=== PATIENT | female | born 1980 | race African-American/Black ===

== ENCOUNTER 2016-06-16 13:06 | Emergency (ER) | payer MEDICAID ==
[~2016-06-16] VITALS: Ht 180.3 cm; Wt 84.4 kg
[2016-06-16] MEDS ORDERED: IV NORMAL SALINE 1000ML BAG 1,000 ML IV SCH (14:04)
[2016-06-16] MEDS ORDERED: MORPHINE SULFATE 4 MG/ML DISP.SYRIN. IV/SQ PRN (14:15)
[2016-06-16] MEDS ORDERED: ONDANSETRON PF 4 MG/2 ML VIAL. IV ONE (14:15)
--- NOTE | 2016-06-16 14:15 | PHYS DOC ---
Past Medical History Past Medical History: Anxiety, Bipolar, Depression, Diabetes-Type II Past Surgical History: Other Additional Past Surgical Histo: right thigh Smoking: Less than 1pk/day Alcohol Use: None Drug Use: None Adult General Chief Complaint Chief Complaint: NAUSEA/VOMITING/DIARRHA HPI HPI Patient is a 36 year old female who presents with nausea, vomiting, and diarrhea for 2 weeks. She reports epigastric abdominal pain. She has had subjective fever and urinary frequency. She denies dysuria. Her step-mother was recently sick with similar symptoms, but the patient is unsure what her step- mother had. The patient is unsure how many episodes of vomiting or diarrhea she has had in the last 24 hours. She denies blood in the stools. She takes Depakote for bipolar disorder. She controls her diabetes with her diet. She has not yet been seen for this illness. She does not have a PCP; Review of Systems Review of Systems Constitutional: Reports subjective fever. Eyes: Denies change in visual acuity, redness, or eye pain. [] HENT: Denies ear pain, nasal congestion or sore throat. [] Respiratory: Denies cough or shortness of breath. [] Cardiovascular: Denies chest pain, palpitations or edema. [] GI: Denies bloody stools. Reports nausea, vomiting, diarrhea, and abdominal pain. : Denies dysuria, hematuria. Reports urinary frequency. Musculoskeletal: Denies back pain or joint pain. [] Integument: Denies rash or skin lesions. [] Neurologic: Denies headache, focal weakness or sensory changes. [] Endocrine: Denies polyuria or polydipsia. [] Psych: Denies anxiety or depression. [] All systems reviewed and negative unless otherwise stated in the HPI. Current Medications Current Medications Current Medications Medications (Trade) Dose Ordered Sig/Rupinder Start Time Stop Time Status Last Admin Dose Admin Morphine Sulfate 4 mg PRN Q15MIN PRN 06/16/16 14:15 06/17/16 14:14 06/16/16 14:25 4 MG Ondansetron HCl (Zofran) 4 mg 1X ONCE 06/16/16 14:15 06/16/16 14:16 DC 06/16/16 14:24 4 MG Sodium Chloride (Iv Sodium Chloride 0.9% 1000ml Bag) 1,000 ml @ 1,000 mls/hr Q1H 06/16/16 14:04 06/16/16 15:03 DC 06/16/16 14:25 1,000 MLS/HR Allergies Allergies Allergies Coded Allergies Type Severity Reaction Last Updated Verified No Known Drug Allergies 06/09/13 No Physical Exam Physical Exam Constitutional: Well developed, well nourished, no acute distress, non-toxic appearance. [] HENT: Normocephalic, atraumatic, oropharynx moist. [] Eyes: PERRLA, EOMI, conjunctiva normal, no discharge. [] Neck: Normal range of motion, no tenderness, supple, no stridor. [] Cardiovascular: Heart rate regular rhythm, no murmur. [] Lungs & Thorax: Bilateral breath sounds clear to auscultation without wheezes, rales, or rhonchi. [] Abdomen: Bowel sounds normal, soft, epigastric and left lower quadrant tenderness, no masses, no pulsatile masses. [] Skin: Warm, dry, no erythema, no rash. [] Back: No midline tenderness, no CVA tenderness. [] Extremities: No tenderness, ROM intact, no edema. Distal pulses equal bilaterally. [] Neurologic: Alert and oriented X 3, normal motor function, normal sensory function, no focal deficits noted. [] Psychologic: Affect normal, judgement normal, mood normal. [] Current Patient Data Vital Signs Vital Signs Date Time Temp Pulse Resp B/P Pulse Ox O2 Delivery O2 Flow Rate FiO2 06/16/16 13:39 98.7 87 16 108/73 99 Room Air 98.7 Lab Values Laboratory Tests Test 06/16/16 14:15 White Blood Count 9.6x10^3/uL (4.0-11.0) Red Blood Count 4.75x10^6/uL (3.50-5.40) Hemoglobin 14.2g/dL (12.0-15.5) Hematocrit 42.4% (36.0-47.0) Mean Corpuscular Volume 89fL (79-100) Mean Corpuscular Hemoglobin 30pg (25-35) Mean Corpuscular Hemoglobin Concent 34g/dL (31-37) Red Cell Distribution Width 13.6% (11.5-14.5) Platelet Count 267x10^3/uL (140-400) Neutrophils (%) (Auto) 73% (31-73) Lymphocytes (%) (Auto) 21% (24-48) L Monocytes (%) (Auto) 5% (0-9) Eosinophils (%) (Auto) 0% (0-3) Basophils (%) (Auto) 1% (0-3) Neutrophils # (Auto) 7.1x10^3uL (1.8-7.7) Lymphocytes # (Auto) 2.0x10^3/uL (1.0-4.8) Monocytes # (Auto) 0.5x10^3/uL (0.0-1.1) Eosinophils # (Auto) 0.0x10^3/uL (0.0-0.7) Basophils # (Auto) 0.1x10^3/uL (0.0-0.2) Urine Collection Type Unknown Urine Color Straw Urine Clarity Cloudy Urine pH 6.0 Urine Specific [place] 1.025 Urine Protein Negativemg/dL (NEG-TRACE) Urine Glucose (UA) Negativemg/dL (NEG) Urine Ketones (Stick) 15mg/dL (NEG) Urine Blood Negative (NEG) Urine Nitrite Negative (NEG) Urine Bilirubin Small (NEG) Urine Urobilinogen Dipstick 1.0mg/dL (0.2 mg/dL) Urine Leukocyte Esterase Moderate (NEG) Urine RBC 0/HPF (0-2) Urine WBC 5-10/HPF (0-4) Urine Squamous Epithelial Cells Many/LPF Urine Bacteria Few/HPF (0-FEW) Urine Mucus Mod/LPF Urine Test Negative (NEG) Sodium Level 141mmol/L (136-145) Potassium Level 3.7mmol/L (3.5-5.1) Chloride Level 104mmol/L (98-107) Carbon Dioxide Level 24mmol/L (21-32) Anion Gap 13 (6-14) Blood Urea Nitrogen 9mg/dL (7-20) Creatinine 1.0mg/dL (0.6-1.0) Estimated GFR (Cockcroft-Gault) 76.3 BUN/Creatinine Ratio 9 (6-20) Glucose Level 112mg/dL (70-99) H Calcium Level 9.8mg/dL (8.5-10.1) Total Bilirubin 0.6mg/dL (0.2-1.0) Aspartate Amino Transferase (AST) 25U/L (15-37) Alanine Aminotransferase (ALT) 82U/L (14-59) H Alkaline Phosphatase 162U/L (46-116) H Total Protein 8.4g/dL (6.4-8.2) H Albumin 4.0g/dL (3.4-5.0) Albumin/Globulin Ratio 0.9 (1.0-1.7) L Lipase 130U/L (73-393) Laboratory Tests 06/16/16 14:15 Laboratory Tests 06/16/16 14:15 EKG EKG [] Radiology/Procedures Radiology/Procedures [] Course & Med Decision Making Course & Med Decision Making Pertinent Labs and Imaging studies reviewed. (See chart for details) Reevaluation at 1325: The patient reports that her pain is completely resolved. She is not having any more nausea or dry heaving. She is feeling much better and is ready to go home. I discussed her lab results, including mildly elevated liver enzyme levels. I recommended that she follow up with primary care provider for repeat LFT testing in one week. We discussed the importance of increased fluid intake. She is instructed to follow the BRAT diet for the next 24-48 hours. Return precautions were discussed. She verbalizes understanding and agrees with plan to be discharged home with prescriptions for pain and nausea medications. ED course: Patient is a 36-year-old female presents with 2 weeks of nausea and vomiting, diarrhea, and abdominal pain. On exam, her abdomen is soft and nonsurgical with epigastric and left lower quadrant tenderness. Vital signs are stable. Symptoms improved with IV morphine, Zofran, and fluids. Liver enzymes are mildly elevated without other significant laboratory abnormalities. Urine does appear to show infection. She is discharged home with prescription for pain , nausea, and antibiotic. She is instructed to follow-up for repeat LFT testing in one week. Return precautions were discussed. She verbalized understanding and agrees with plan. Dragon Disclaimer Dragon Disclaimer This electronic medical record was generated, in whole or in part, using a voice recognition dictation system. Departure Departure Impression: Primary Impression: Abdominal pain Additional Impressions: Vomiting and diarrhea UTI (urinary tract infection) Disposition: HOME, SELF-CARE Condition: IMPROVED Referrals: NO PCP (PCP) Patient Instructions: Abdominal Pain, [id number], Diarrhea, [id number], Nausea and Vomiting, [id number], Urinary Tract Infection, [id number] Additional Instructions: You were seen for vomiting, diarrhea, and abdominal pain. Your liver function tests were mildly elevated today. Please follow up with your primary care provider in 1 week for repeat testing of your liver enzymes. Your urine shows an infection. Please complete all of the prescribed antibiotics. Please take the prescribed medications as directed. Do not drive or operate heavy machinery while taking pain medication. Please drink lots liquids. Follow the BRAT diet (bananas, rice, applesauce, toast) for the next 24-48 hours. Return to the emergency department if you have severe pain, fever, continued vomiting, or other new or concerning symptoms. Scripts Ciprofloxacin Hcl (Cipro)500 Mg Tablet1 Tab PO BID #6 TAB Prov:DENNIS HERNANDEZ 06/16/16 Hydrocodone/Apap 5-325 ([place] 5-325 Tablet)1 Each Tablet1 Tab PO PRN Q6HRS PRN PAIN #10 TAB Prov:DENNIS HERNANDEZ 06/16/16 Ondansetron (Zofran Odt)4 Mg Tab.rapdis1 Tab SL Q8HRS #10 TAB Prov:DENNIS HERNANDEZ 06/16/16 Problem Qualifiers Primary Impression: Abdominal pain Abdominal location: epigastric Qualified Code: R10.13 - Epigastric pain Additional Impressions: UTI (urinary tract infection) Urinary tract infection type: acute cystitis Hematuria presence: without hematuria Qualified Code: N30.00 - Acute cystitis without hematuria DENNIS HERNANDEZ Jun 16, 2016 14:15
[2016-06-16 14:33] LABS: BASO # 0.1 x10^3/uL (0.0-0.2); BASO % 1 % (0-3); EOS % 0 % (0-3); HEMATOCRIT 42.4 % (36.0-47.0); HEMOGLOBIN 14.2 g/dL (12.0-15.5); LYMPH % 21 % (24-48); MEAN CORPUSCULAR HEMOGLOBIN 30 pg (25-35); MEAN CORPUSCULAR HGB CONC 34 g/dL (31-37); MEAN CORPUSCULAR VOLUME 89 fL (79-100); MONO % 5 % (0-9); NEUT % 73 % (31-73); PLATELET COUNT 267 x10^3/uL (140-400); RED BLOOD COUNT 4.75 x10^6/uL (3.50-5.40); RED CELL DISTRIBUTION WIDTH 13.6 % (11.5-14.5); WHITE BLOOD COUNT 9.6 x10^3/uL (4.0-11.0)
[2016-06-16 14:37] LABS: NEG OBC UR NEG; POS OBC UR POS
[2016-06-16 14:46] LABS: CALCIUM 9.8 mg/dL (8.5-10.1); GFR 76.3; POTASSIUM 3.7 mmol/L (3.5-5.1)
[2016-06-16 14:52] LABS: ALBUMIN/GLOBULIN RATIO 0.9 (1.0-1.7); TOTAL BILIRUBIN 0.6 mg/dL (0.2-1.0); TOTAL PROTEIN 8.4 g/dL (6.4-8.2)
[2016-06-16 14:55] LABS: BILIRUBIN,URINE SMALL (NEG); GLUCOSE,URINE NEGATIVE (NEG); NITRITE,URINE NEGATIVE (NEG); PROTEIN,URINE NEGATIVE (NEG-TRACE)
[2016-06-16 14:56] LABS: RBC,URINE 0 /HPF (0-2)
[2016-06-16 14:57] LABS: BACTERIA,URINE FEW /HPF (0-FEW); SQUAMOUS EPITHELIAL CELL,UR MANY /LPF
[2016-06-16] MEDS ORDERED: ONDA4TAB10 SL (15:40)
[2016-06-16] MEDS ORDERED: HYDR-971 PO (15:40)
[2016-06-16] MEDS ORDERED: CIPR500T94 PO (15:40)
[2016-06-16 16:02] VITALS: BP 106/70
== END 2016-06-16 16:14 | disposition home or self-care (01) ==
LOC: ER 13:06
DX: N30.00 Acute cystitis without hematuria (principal); R10.13 Epigastric pain; R11.2 Nausea with vomiting, unspecified; R19.7 Diarrhea, unspecified; F17.200 Nicotine dependence, unspecified, uncomplicated; E11.9 Type 2 diabetes mellitus without complications; F31.9 Bipolar disorder, unspecified; F41.9 Anxiety disorder, unspecified
CPT/HCPCS: 36415; 80053; 81001; 81025; 83690; 85027; 87086; 96361; 96374; 96375; 99284; J2270; J2405; J7030

== ENCOUNTER 2016-09-08 09:49 | Emergency (ER) | payer MEDICAID ==
[~2016-09-08] VITALS: Ht 180.3 cm; Wt 85.3 kg
[~2016-09-08 09:49] MED LIST: CIPR500T94 PO; HYDR-971 PO; ONDA4TAB10 SL
[2016-09-08] MEDS ORDERED: AZITHROMYCIN 250 MG TABLET. PO ONE (10:45)
[2016-09-08] MEDS ORDERED: IV NORMAL SALINE 1000ML BAG 1,000 ML IV ONE (10:45)
[2016-09-08] MEDS ORDERED: cefTRIAXone IM 250 MG VIAL IM ONE (10:45)
[2016-09-08] MEDS ORDERED: ONDANSETRON PF 4 MG/2 ML VIAL. IV ONE (10:45)
[2016-09-08] MEDS ORDERED: PENICILLIN G BENZATHINE LA 2,400,000 UNIT/4 ML DISP.SYRIN. IM ONE (11:00)
[2016-09-08 11:44] LABS: BILIRUBIN,URINE NEGATIVE (NEG); GLUCOSE,URINE NEGATIVE (NEG); NITRITE,URINE NEGATIVE (NEG); PROTEIN,URINE NEGATIVE (NEG-TRACE); UROBILINOGEN,URINE 0.2 mg/dL (0.2 mg/dL)
[2016-09-08 11:45] LABS: BACTERIA,URINE FEW /HPF (0-FEW); RBC,URINE OCC /HPF (0-2); SQUAMOUS EPITHELIAL CELL,UR MOD /LPF
[2016-09-08 11:50] LABS: CALCIUM 9.2 mg/dL (8.5-10.1); CREATININE 0.9 mg/dL (0.6-1.0); GFR 86.2; POTASSIUM 3.6 mmol/L (3.5-5.1)
[2016-09-08 11:51] LABS: BASO # 0.1 x10^3/uL (0.0-0.2); BASO % 1 % (0-3); EOS % 0 % (0-3); HEMATOCRIT 41.5 % (36.0-47.0); HEMOGLOBIN 13.7 g/dL (12.0-15.5); LYMPH # 2.7 x10^3/uL (1.0-4.8); LYMPH % 36 % (24-48); MEAN CORPUSCULAR HEMOGLOBIN 30 pg (25-35); MEAN CORPUSCULAR HGB CONC 33 g/dL (31-37); MEAN CORPUSCULAR VOLUME 90 fL (79-100); MONO % 6 % (0-9); NEUT % 57 % (31-73); PLATELET COUNT 276 x10^3/uL (140-400); RED BLOOD COUNT 4.63 x10^6/uL (3.50-5.40); RED CELL DISTRIBUTION WIDTH 13.7 % (11.5-14.5); WHITE BLOOD COUNT 7.5 x10^3/uL (4.0-11.0)
[2016-09-08 11:55] LABS: ALBUMIN 3.8 g/dL (3.4-5.0); TOTAL BILIRUBIN 0.4 mg/dL (0.2-1.0); TOTAL PROTEIN 7.5 g/dL (6.4-8.2)
[2016-09-08] MEDS ORDERED: ONDA4TAB7 PO (12:33)
[2016-09-08] MEDS ORDERED: METR500T PO (12:33)
--- NOTE | 2016-09-08 12:34 | PHYS DOC ---
Past Medical History Past Medical History: Anxiety, Bipolar, Depression, Diabetes-Type II Past Surgical History: Other Additional Past Surgical Histo: right thigh Additional Information: 06/01 ppd Alcohol Use: Sober Additional Information: sober 2 years Drug Use: None Adult General Chief Complaint Chief Complaint: NAUSEA/VOMITING/DIARRHA HPI HPI This is a 36-year-old female who presents with significant history for nausea and vomiting and diarrhea for the last several days as well as increasing vaginal discharge. Patient states she has been on course of Flagyl in the past for her discharge. She is also concerned about possible exposure to syphilis that she has been sexually active with a partner that she states had syphilis. She denies any vaginal lesions. She denies any vaginal pain. She denies any fever or chills. She is speaking in complete sentences and in no acute distress. She denies any hematuria or dysuria. Review of Systems Review of Systems Constitutional: Denies fever or chills [] Eyes: Denies change in visual acuity, redness, or eye pain [] HENT: Denies nasal congestion or sore throat [] Respiratory: Denies cough or shortness of breath [] Cardiovascular: No additional information not addressed in HPI [] GI: Denies abdominal pain, has nausea, has vomiting, denies bloody stools, has diarrhea [] : Denies dysuria or hematuria [] Musculoskeletal: Denies back pain or joint pain [] Integument: Denies rash or skin lesions [] Neurologic: Denies headache, focal weakness or sensory changes [] Endocrine: Denies polyuria or polydipsia [] Current Medications Current Medications Current Medications Medications (Trade) Dose Ordered Sig/Rupinder Start Time Stop Time Status Last Admin Dose Admin Azithromycin (Zithromax) 1,000 mg 1X ONCE 09/08/16 10:45 09/08/16 10:46 DC 09/08/16 11:27 1,000 MG Ceftriaxone Sodium (Rocephin Im) 250 mg 1X ONCE 09/08/16 10:45 09/08/16 10:46 DC 09/08/16 11:27 250 MG Ondansetron HCl (Zofran) 4 mg 1X ONCE 09/08/16 10:45 09/08/16 10:46 DC 09/08/16 11:28 4 MG Penicillin G Benzathine (Bicillin L-A) 2,400,000 unit 1X ONCE 09/08/16 11:00 09/08/16 11:01 DC 09/08/16 11:28 2,400,000 UNIT Sodium Chloride (Iv Sodium Chloride 0.9% 1000ml Bag) 1,000 ml @ 1,000 mls/hr 1X ONCE 09/08/16 10:45 09/08/16 11:44 DC 09/08/16 11:27 1,000 MLS/HR Allergies Allergies Allergies Coded Allergies Type Severity Reaction Last Updated Verified No Known Drug Allergies 06/09/13 No Physical Exam Physical Exam Constitutional: Well developed, well nourished, no acute distress, non-toxic appearance. [] HENT: Normocephalic, atraumatic, bilateral external ears normal, oropharynx moist, no oral exudates, nose normal. [] Eyes: PERRLA, EOMI, conjunctiva normal, no discharge. [] Neck: Normal range of motion, no tenderness, supple, no stridor. [] Cardiovascular:Heart rate regular rhythm, no murmur [] Lungs & Thorax: Bilateral breath sounds clear to auscultation [] Abdomen: Bowel sounds normal, soft, no tenderness, no masses, no pulsatile masses. [] : Pelvic exam reveals a closed cervical os with significant thick, white discharge. No blood is seen. There is no adnexal pain. Skin: Warm, dry, no erythema, no rash. [] Back: No tenderness, no CVA tenderness. [] Extremities: No tenderness, no cyanosis, no clubbing, ROM intact, no edema. [] Neurologic: Alert and oriented X 3, normal motor function, normal sensory function, no focal deficits noted. [] Psychologic: Affect normal, judgement normal, mood normal. [] Current Patient Data Vital Signs Vital Signs Date Time Temp Pulse Resp B/P Pulse Ox O2 Delivery O2 Flow Rate FiO2 09/08/16 12:42 63 18 145/68 98 Room Air 09/08/16 09:59 98.1 98.1 Lab Values Laboratory Tests Test 09/08/16 09:17 09/08/16 10:05 09/08/16 11:27 POC Urine HCG, Qualitative Hcg negative (Negative) Urine Collection Type Unknown Urine Color [place] Urine Clarity Cloudy Urine pH 6.0 Urine Specific [place] >=1.030 Urine Protein Negativemg/dL (NEG-TRACE) Urine Glucose (UA) Negativemg/dL (NEG) Urine Ketones (Stick) Negativemg/dL (NEG) Urine Blood Negative (NEG) Urine Nitrite Negative (NEG) Urine Bilirubin Negative (NEG) Urine Urobilinogen Dipstick 0.2mg/dL (0.2 mg/dL) Urine Leukocyte Esterase Small (NEG) Urine RBC Occ/HPF (0-2) Urine WBC 1-4/HPF (0-4) Urine Squamous Epithelial Cells Mod/LPF Urine Bacteria Few/HPF (0-FEW) Urine Mucus Mod/LPF White Blood Count 7.5x10^3/uL (4.0-11.0) Red Blood Count 4.63x10^6/uL (3.50-5.40) Hemoglobin 13.7g/dL (12.0-15.5) Hematocrit 41.5% (36.0-47.0) Mean Corpuscular Volume 90fL (79-100) Mean Corpuscular Hemoglobin 30pg (25-35) Mean Corpuscular Hemoglobin Concent 33g/dL (31-37) Red Cell Distribution Width 13.7% (11.5-14.5) Platelet Count 276x10^3/uL (140-400) Neutrophils (%) (Auto) 57% (31-73) Lymphocytes (%) (Auto) 36% (24-48) Monocytes (%) (Auto) 6% (0-9) Eosinophils (%) (Auto) 0% (0-3) Basophils (%) (Auto) 1% (0-3) Neutrophils # (Auto) 4.3x10^3uL (1.8-7.7) Lymphocytes # (Auto) 2.7x10^3/uL (1.0-4.8) Monocytes # (Auto) 0.4x10^3/uL (0.0-1.1) Eosinophils # (Auto) 0.0x10^3/uL (0.0-0.7) Basophils # (Auto) 0.1x10^3/uL (0.0-0.2) Sodium Level 141mmol/L (136-145) Potassium Level 3.6mmol/L (3.5-5.1) Chloride Level 106mmol/L (98-107) Carbon Dioxide Level 23mmol/L (21-32) Anion Gap 12 (6-14) Blood Urea Nitrogen 8mg/dL (7-20) Creatinine 0.9mg/dL (0.6-1.0) Estimated GFR (Cockcroft-Gault) 86.2 BUN/Creatinine Ratio 9 (6-20) Glucose Level 95mg/dL (70-99) Calcium Level 9.2mg/dL (8.5-10.1) Total Bilirubin 0.4mg/dL (0.2-1.0) Aspartate Amino Transferase (AST) 18U/L (15-37) Alanine Aminotransferase (ALT) 29U/L (14-59) Alkaline Phosphatase 76U/L (46-116) Total Protein 7.5g/dL (6.4-8.2) Albumin 3.8g/dL (3.4-5.0) Albumin/Globulin Ratio 1.0 (1.0-1.7) Lipase 111U/L (73-393) Laboratory Tests 09/08/16 11:27 Laboratory Tests 09/08/16 11:27 EKG EKG [] Radiology/Procedures Radiology/Procedures [] Course & Med Decision Making Course & Med Decision Making Pertinent Labs and Imaging studies reviewed. (See chart for details) 36-year-old female with significant nausea/vomiting/diarrhea was given a fluid bolus and had laboratory workup that was unrevealing. Urinalysis is negative for or infection. Because of her ongoing concern for syphilis exposure , the patient was given penicillin G and serum studies were drawn which will result in the the next several days. She was also treated for any other sexually transmitted illness such as gonorrhea or chlamydia. Her pelvic exam showed a thick white discharge for which I will treat with a course of Flagyl and she will follow closely for symptom resolution. She was very agreeable with this plan and was discharged without incident. Dragon Disclaimer Dragon Disclaimer This electronic medical record was generated, in whole or in part, using a voice recognition dictation system. Departure Departure Impression: Primary Impression: Vomiting and diarrhea Additional Impression: Bacterial vaginosis Disposition: 01 HOME, SELF-CARE Admitting Physician: Other Condition: STABLE Referrals: NO PCP (PCP) Patient Instructions: Bacterial Vaginosis, Nausea and Vomiting, [id number] Additional Instructions: Please take your medications as prescribed. Return to the ER if you develop any worsening of your symptoms. Continue to stay well hydrated at home. Scripts Metronidazole (Flagyl)500 Mg Tablet1 Tab PO BID #14 TAB Prov:STEFANI NUGENT DO 09/08/16 Ondansetron Hcl (Zofran)4 Mg Tablet4 Mg PO BID PRN NAUSEA/VOMITING #10 TAB Prov:STEFANI NUGENT DO 09/08/16 Problem Qualifiers STEFANI NUGENT DO Sep 08, 2016 12:33
[2016-09-08 12:42] VITALS: BP 145/68
== END 2016-09-08 12:42 | disposition home or self-care (01) ==
LOC: ER 09:49
DX: R11.2 Nausea with vomiting, unspecified (principal); R19.7 Diarrhea, unspecified; N76.0 Acute vaginitis; E11.9 Type 2 diabetes mellitus without complications; F41.9 Anxiety disorder, unspecified; F32.9 Major depressive disorder, single episode, unspecified; F17.200 Nicotine dependence, unspecified, uncomplicated
CPT/HCPCS: 36415; 80053; 81001; 83690; 84703; 85027; 86593; 87086; 87491; 87591; 96361; 96372; 96374; 99284; J0561; J0696; J2405; J7030; Q0111; Q0144; 81025

== ENCOUNTER 2017-11-01 12:56 | Emergency (ER) | payer MEDICAID ==
[2017-11-01 13:08] LABS: POC GLUCOSE 108 mg/dL (70-99)
== END 2017-11-01 14:04 | disposition home or self-care (01) ==
LOC: ER 12:56
DX: F16.10 Hallucinogen abuse, uncomplicated (principal); E11.9 Type 2 diabetes mellitus without complications; F31.9 Bipolar disorder, unspecified; F41.9 Anxiety disorder, unspecified
CPT/HCPCS: 82962; 99283

== ENCOUNTER 2018-02-10 18:50 | Emergency (ER) | payer MEDICAID ==
[~2018-02-10] VITALS: Ht 175.3 cm; Wt 65.8 kg
[2018-02-10 18:50] VITALS: BP 126/60
[~2018-02-10 18:50] MED LIST changes: +METR500T PO; +ONDA4TAB7 PO
--- NOTE | 2018-02-10 19:03 | PHYS DOC ---
Past Medical History Past Medical History: Anxiety, Bipolar, Depression, Diabetes-Type II, Other Additional Past Medical Histor: syphilis, drug abuse Past Surgical History: Other Additional Past Surgical Histo: right thigh Alcohol Use: Heavy Drug Use: Cocaine, Marijuana, Phencyclidine Adult General Chief Complaint Chief Complaint: SEIZURE HPI HPI Patient is a 37 year old female brought in by ambulance after being found sleeping in a car with altered mental status. She does have a prior history of PCP use unclear when she last used. Initially required sternal rub and she became agitated initial blood pressure was 80/60. No stigmata of seizure no incontinence no tongue biting. Review of Systems Review of Systems Limited by mental status Current Medications Current Medications Current Medications Medications (Trade) Dose Ordered Sig/Rupinder Start Time Stop Time Status Last Admin Dose Admin Midazolam HCl (Versed) 4 mg 1X ONCE 02/10/18 19:15 02/10/18 19:16 DC Allergies Allergies Allergies Coded Allergies Type Severity Reaction Last Updated Verified No Known Drug Allergies 06/09/13 No Physical Exam Physical Exam Constitutional: Well developed, cachectic mild distress HENT: Normocephalic, atraumatic, bilateral external ears normal, oropharynx moist, no oral exudates, nose normal. [] Eyes: PERRLA, EOMI, conjunctiva normal, no discharge. [] Neck: Normal range of motion, no tenderness, supple, no stridor. [] Pulmonary: Normal respiratory effort no increased work of breathing no obvious chest wall trauma Abdomen: Bowel sounds normal, soft, no tenderness, no masses, no pulsatile masses. [] Skin: Warm, dry, no erythema, no rash. [] Back: No tenderness, no CVA tenderness. [] Extremities: No tenderness, no cyanosis, no clubbing, ROM intact, no edema. [] Neurologic: Alert and oriented X 3, normal motor function, normal sensory function, no focal deficits noted. [] Psychologic: Appears quite paranoid and anxious. Current Patient Data Vital Signs Vital Signs Date Time Temp Pulse Resp B/P (MAP) Pulse Ox O2 Delivery O2 Flow Rate FiO2 02/10/18 18:50 18 126/60 (82) 99 Room Air EKG EKG [] Radiology/Procedures Radiology/Procedures [] Course & Med Decision Making Course & Med Decision Making Pertinent Labs and Imaging studies reviewed. (See chart for details) []Likely PCP use. Patient appears somewhat paranoid but she was verbally redirectable and stayed pretty calm overall.. She was discharged with people who know her and can watch over her. Dragon Disclaimer Dragon Disclaimer This electronic medical record was generated, in whole or in part, using a voice recognition dictation system. Departure Departure Impression: Primary Impression: Drug abuse Disposition: HOME, SELF-CARE Condition: IMPROVED Referrals: NO PCP (PCP) VANDANA BRAUN MD Feb 10, 2018 19:03
[2018-02-10] MEDS ORDERED: MIDAZOLAM HCL/PF 5 MG/5 ML VIAL. IM ONE (19:15)
== END 2018-02-10 19:37 | disposition home or self-care (01) ==
LOC: ER 18:50
DX: F19.10 Other psychoactive substance abuse, uncomplicated (principal); F14.10 Cocaine abuse, uncomplicated; F12.10 Cannabis abuse, uncomplicated; F41.9 Anxiety disorder, unspecified; F31.9 Bipolar disorder, unspecified; E11.9 Type 2 diabetes mellitus without complications; F10.20 Alcohol dependence, uncomplicated; Y90.9 Presence of alcohol in blood, level not specified
CPT/HCPCS: 99283

== ENCOUNTER 2018-04-21 09:46 | Emergency (ER) | payer MEDICAID ==
[~2018-04-21] VITALS: Ht 175.3 cm; Wt 65.8 kg
[2018-04-21 09:46] VITALS: BP 151/99
[~2018-04-21 09:46] MED LIST changes: +HYDR-3164 PO; -HYDR-971 PO
[2018-04-21] MEDS ORDERED: NEOMY/BACITR/POLYMYXIN OINT PACKET. TP ONE (10:00)
[2018-04-21] MEDS ORDERED: LIDOCAINE 1% PF 2 ML VIAL. INJ ONE (10:00)
[2018-04-21] MEDS ORDERED: DIPHTH,PERTUSS(ACELL),TET TOX 0.5 ML DISP.SYRIN. VAX IM ONE (10:00)
--- NOTE | 2018-04-21 10:22 | RAD ---
Left finger radiograph 04/21/2018 CLINICAL INDICATION: Left 3rd finger trauma and pain COMPARISON: None. FINDINGS: AP view hand and oblique and lateral views of the 3rd left finger were obtained. There is a comminuted nondisplaced fracture of the tuft of the 3rd distal phalanx. Soft tissue swelling about the distal 3rd digit. IMPRESSION: Nondisplaced comminuted fracture tuft 3rd distal phalanx. Electronically signed by: Bairon Gaivria MD (04/21/2018 10:19 AM) [facility]
[2018-04-21] MEDS ORDERED: CEPH500C PO (10:45)
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
== END 2018-04-21 10:58 | disposition home or self-care (01) ==
LOC: ER 09:46
DX: S62.663B Nondisplaced fracture of distal phalanx of left middle finger, initial encounter for open fracture (principal); F31.9 Bipolar disorder, unspecified; W23.0XXA Caught, crushed, jammed, or pinched between moving objects, initial encounter; Y93.89 Activity, other specified; Y92.89 Other specified places as the place of occurrence of the external cause; Y99.8 Other external cause status
CPT/HCPCS: 29130; 73140; 90471; 90715; 99283-25; 99284-25

== ENCOUNTER 2018-04-29 13:00 | Emergency (ER) | payer MEDICAID ==
[~2018-04-29] VITALS: Ht 170.2 cm; Wt 65.8 kg
[~2018-04-29 13:00] MED LIST changes: +CEPH500C PO
[2018-04-29 13:25] VITALS: BP 149/94
[2018-04-29] MEDS ORDERED: CEPH-264 PO (13:28)
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
== END 2018-04-29 13:38 | disposition home or self-care (01) ==
LOC: ER 13:00
DX: L08.89 Other specified local infections of the skin and subcutaneous tissue (principal); S61.213D Laceration without foreign body of left middle finger without damage to nail, subsequent encounter; F31.9 Bipolar disorder, unspecified; W23.0XXD Caught, crushed, jammed, or pinched between moving objects, subsequent encounter
CPT/HCPCS: 99283

== ENCOUNTER 2018-09-13 19:51 | Emergency (ER) | payer MEDICAID ==
[~2018-09-13] VITALS: Ht 180.3 cm; Wt 59.0 kg
[~2018-09-13 19:51] MED LIST changes: +CEPH-264 PO
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
[2018-09-13] MEDS ORDERED: CYCLOBENZAPRINE 10 MG TABLET. PO ONE (20:15)
[2018-09-13] MEDS ORDERED: IBUPROFEN 400 MG TABLET. PO ONE (20:15)
[2018-09-13 21:00] VITALS: BP 119/78
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
== END 2018-09-13 21:37 | disposition home or self-care (01) ==
LOC: ER 19:51
DX: S43.491A Other sprain of right shoulder joint, initial encounter (principal); S13.8XXA Sprain of joints and ligaments of other parts of neck, initial encounter; S09.8XXA Other specified injuries of head, initial encounter; F31.9 Bipolar disorder, unspecified; V47.6XXA Car passenger injured in collision with fixed or stationary object in traffic accident, initial encounter; Y93.89 Activity, other specified; Y92.410 Unspecified street and highway as the place of occurrence of the external cause; Y99.8 Other external cause status
CPT/HCPCS: 70450; 71045; 72125; 73000; 73030; 81025; 99284-25

== ENCOUNTER 2019-06-09 07:12 | Inpatient (IN) | payer MEDICAID ==
[2019-06-09] VITALS (17 sets, daily range): BP systolic 93–135; BP diastolic 61–92
[~2019-06-09] VITALS: Ht 172.7 cm; Wt 72.1 kg
[2019-06-09] MEDS ORDERED: IPRATRPIUM/ALBUTEROL 0.5/2.5MG 3 ML NEBU. ONE (07:17)
[2019-06-09] MEDS ORDERED: ALBUTEROL SULFATE 2.5 MG/3 ML NEBU. ONE (07:17)
[2019-06-09] MEDS ORDERED: ATROPINE 0.5 MG/5 ML DISP.SYRINGE. ONE (07:21)
[2019-06-09] MEDS ORDERED: PROPOFOL 0 ML IV ONE (07:41)
[2019-06-09] MEDS ORDERED: levETIRAcetam 1,500 MG in IV DEXTROSE 5% 100ML 100 ML IV ONE (07:45)
[2019-06-09 07:53] LABS: BASO # 0.4 x10^3/uL (0.0-0.2); BASO % 3 % (0-3); EOS # 0.2 x10^3/uL (0.0-0.7); EOS % 2 % (0-3); HEMATOCRIT 47.2 % (36.0-47.0); HEMOGLOBIN 15.1 g/dL (12.0-15.5); LYMPH # 5.5 x10^3/uL (1.0-4.8); LYMPH % 42 % (24-48); MEAN CORPUSCULAR HEMOGLOBIN 31 pg (25-35); MEAN CORPUSCULAR HGB CONC 32 g/dL (31-37); MEAN CORPUSCULAR VOLUME 96 fL (79-100); MONO # 0.4 x10^3/uL (0.0-1.1); MONO % 4 % (0-9); NEUT # 6.4 x10^3/uL (1.8-7.7); NEUT % 50 % (31-73); PLATELET COUNT 305 x10^3/uL (140-400); RED BLOOD COUNT 4.92 x10^6/uL (3.50-5.40); RED CELL DISTRIBUTION WIDTH 14.4 % (11.5-14.5); WHITE BLOOD COUNT 12.9 x10^3/uL (4.0-11.0)
[2019-06-09 07:54] LABS: BILIRUBIN,URINE NEGATIVE (NEG); CLARITY,URINE CLEAR; COLOR,URINE YELLOW; NITRITE,URINE NEGATIVE (NEG); PROTEIN,URINE 100 mg/dL (NEG-TRACE); UROBILINOGEN,URINE 0.2 mg/dL (0.2 mg/dL)
[2019-06-09] MEDS ORDERED: ROCURONIUM 50 MG/5 ML VIAL. ONE (07:56)
--- NOTE | 2019-06-09 07:58 | PHYS DOC ---
Past Medical History Past Medical History: Bipolar, Hepatitis, Other Additional Past Medical Histor: syphilis, drug abuse,HEPATITIS C Past Surgical History: Other Additional Past Surgical Histo: right thigh Alcohol Use: Occasionally Drug Use: Marijuana, Phencyclidine Adult General Chief Complaint Chief Complaint: SEIZURE HPI HPI Patient is a 39 year old AA female with history of bipolar, hepatitis, drug abuse and seizure disorder who presents with witnessed denies seizure by significant other and prolonged sedation/postictal state after being administered 10 mg of Versed IM per EMS the minutes prior to ED arrival. GCS of 3 ED arrival. Patient is hypoxic with different bronchorrhea on ED arrival. O2 saturation 83% on nonrebreather. History is limited given the patient's clinical presentation. ] Review of Systems Review of Systems Review of symptoms. Unable to obtain All other systems were reviewed and found to be within normal limits, except as documented in this note. Current Medications Current Medications Current Medications Medications (Trade) Dose Ordered Sig/Rupinder Start Time Stop Time Status Last Admin Dose Admin Albuterol Sulfate (Ventolin Neb Soln) 2.5 mg STK-MED ONCE 06/09/19 07:17 06/09/19 07:18 DC Albuterol/ Ipratropium (Duoneb) 3 ml STK-MED ONCE 06/09/19 07:17 06/09/19 07:18 DC Atropine Sulfate (ATROPINE 0.5mg SYRINGE) 0.5 mg STK-MED ONCE 06/09/19 07:21 06/09/19 07:22 DC Levetiracetam 1500 mg/Dextrose 115 ml @ 440 mls/hr 1X ONCE 06/09/19 07:45 06/09/19 08:00 DC 06/09/19 07:53 440 MLS/HR Propofol 100 ml @ 0 mls/hr CONT PRN 06/09/19 08:00 06/09/19 07:56 2 MLS/HR Rocuronium [place] (Zemuron) 50 mg STK-MED ONCE 06/09/19 07:56 06/09/19 07:56 DC Allergies Allergies Allergies Coded Allergies Type Severity Reaction Last Updated Verified No Known Drug Allergies 06/09/13 No Physical Exam Physical Exam Constitutional: GCS of 3. Respirations labored, shallow,[] HENT: Normocephalic, atraumatic, bilateral external ears normal, oropharynx [address], nasal trumpet in place,. [] Eyes: Lids pinpoint reactive, EOMI, no nystagmus or eye deviation. [] Neck: Normal range of motion, no tenderness, supple, no stridor. [] Cardiovascular:Heart rate regular rhythm, no murmur [] Lungs & Thorax: Respirations shallow, labored with significant white frothy bronchorhea, [] Abdomen: Bowel sounds normal, soft. [] Skin: Warm, dry, appropriate for ethnicity. [] Back: No tenderness, no CVA tenderness. [] Extremities: No tenderness. [] Neurologic: GCS 3. []] Current Patient Data Vital Signs Vital Signs Date Time Temp Pulse Resp B/P (MAP) Pulse Ox O2 Delivery O2 Flow Rate FiO2 06/09/19 07:22 96.3 137 48 158/89 (112) 83 Room Air 96.3 Lab Values Laboratory Tests Test 06/09/19 07:20 06/09/19 07:34 White Blood Count 12.9 x10^3/uL (4.0-11.0) H Red Blood Count 4.92 x10^6/uL (3.50-5.40) Hemoglobin 15.1 g/dL (12.0-15.5) Hematocrit 47.2 % (36.0-47.0) H Mean Corpuscular Volume 96 fL (79-100) Mean Corpuscular Hemoglobin 31 pg (25-35) Mean Corpuscular Hemoglobin Concent 32 g/dL (31-37) Red Cell Distribution Width 14.4 % (11.5-14.5) Platelet Count 305 x10^3/uL (140-400) Neutrophils (%) (Auto) 50 % (31-73) Lymphocytes (%) (Auto) 42 % (24-48) Monocytes (%) (Auto) 4 % (0-9) Eosinophils (%) (Auto) 2 % (0-3) Basophils (%) (Auto) 3 % (0-3) Neutrophils # (Auto) 6.4 x10^3/uL (1.8-7.7) Lymphocytes # (Auto) 5.5 x10^3/uL (1.0-4.8) H Monocytes # (Auto) 0.4 x10^3/uL (0.0-1.1) Eosinophils # (Auto) 0.2 x10^3/uL (0.0-0.7) Basophils # (Auto) 0.4 x10^3/uL (0.0-0.2) H Sodium Level 137 mmol/L (136-145) Potassium Level 3.8 mmol/L (3.5-5.1) Chloride Level 101 mmol/L (98-107) Carbon Dioxide Level 12 mmol/L (21-32) L Anion Gap 24 (6-14) H Blood Urea Nitrogen 7 mg/dL (7-20) Creatinine 1.5 mg/dL (0.6-1.0) H Estimated GFR (Cockcroft-Gault) 47.0 BUN/Creatinine Ratio 5 (6-20) L Glucose Level 281 mg/dL (70-99) H Lactic Acid Level 14.3 mmol/L (0.4-2.0) *H Calcium Level 9.3 mg/dL (8.5-10.1) Total Bilirubin 0.3 mg/dL (0.2-1.0) Aspartate Amino Transferase (AST) 48 U/L (15-37) H Alanine Aminotransferase (ALT) 57 U/L (14-59) Alkaline Phosphatase 106 U/L (46-116) Total Protein 7.5 g/dL (6.4-8.2) Albumin 3.9 g/dL (3.4-5.0) Albumin/Globulin Ratio 1.1 (1.0-1.7) Serum Test, Qualitative Negative (NEG) Ethyl Alcohol Level < 10 mg/dL (0-10) Urine Collection Type U cath Urine Color Yellow Urine Clarity Clear Urine pH 6.0 Urine Specific [place] 1.015 Urine Protein 100 mg/dL (NEG-TRACE) Urine Glucose (UA) 250 mg/dL (NEG) Urine Ketones (Stick) Negative mg/dL (NEG) Urine Blood Small (NEG) Urine Nitrite Negative (NEG) Urine Bilirubin Negative (NEG) Urine Urobilinogen Dipstick 0.2 mg/dL (0.2 mg/dL) Urine Leukocyte Esterase Negative (NEG) Urine RBC 3-5 /HPF (0-2) Urine WBC 1-4 /HPF (0-4) Urine Squamous Epithelial Cells Occ /LPF Urine Bacteria 0 /HPF (0-FEW) Urine Opiates Screen Neg (NEG) Urine Methadone Screen Neg (NEG) Urine Barbiturates Neg (NEG) Urine Phencyclidine Screen Neg (NEG) Urine Amphetamine/Methamphetamine Neg (NEG) Urine Benzodiazepines Screen Pos (NEG) Urine Cocaine Screen Neg (NEG) Urine Cannabinoids Screen Neg (NEG) Urine Ethyl Alcohol Neg (NEG) Laboratory Tests 06/09/19 07:20 Laboratory Tests 06/09/19 07:20 EKG EKG [EKG: Sinus tach,] Radiology/Procedures Radiology/Procedures [CXR: Left basilar atelectasis per radiology report CT head: Pending] Indication: Respiratory failure Consent: Unable to give consent due to emergent nature. Medications Used: see nursing note Procedure: The patient was placed in the appropriate position. Intubation was performed via video larynogoscope with a 7.5 mm endotracheal tube. ET secured at 23 cm at lips]. Initial confirmation of placement included bilateral breath sounds, tube fogging, adequate chest rise, adequate pulse oximetry reading. A chest x-ray to verify correct placement of the tube showed appropriate tube position. The patient tolerated the procedure well. Complications: none. Course & Med Decision Making Course & Med Decision Making Pertinent Labs and Imaging studies reviewed. (See chart for details) [Patient with prolonged recovery from postictal state/sedation requiring intubation for respiratory failure. IV Keppra given, no seizure activity witnessed while in the ED. Will admit to the hospitalist service with anticipated neurology consult] Dragon Disclaimer Dragon Disclaimer This electronic medical record was generated, in whole or in part, using a voice recognition dictation system. Departure Departure Impression: Primary Impression: Status epilepticus Additional Impression: Acute respiratory failure with hypoxia and hypercapnia Disposition: ADMITTED INPATIENT Condition: IMPROVED Referrals: NO PCP (PCP) Problem Qualifiers RICH JONES DO Jun 09, 2019 07:58
[2019-06-09 08:00] LABS: PREG TEST PT QUAL NEGATIVE (NEG)
[2019-06-09] MEDS ORDERED: PROPOFOL 100 ML IV PRN (08:00)
[2019-06-09 08:01] LABS: CALCIUM 9.3 mg/dL (8.5-10.1); CREATININE 1.5 mg/dL (0.6-1.0); POTASSIUM 3.8 mmol/L (3.5-5.1)
[2019-06-09 08:09] LABS: SQUAMOUS EPITHELIAL CELL,UR OCC /LPF
[2019-06-09 08:11] LABS: BACTERIA,URINE 0 /HPF (0-FEW)
[2019-06-09 08:13] LABS: BARBITURATES NEG (NEG); BENZODIAZEPINES POS (NEG); CANNABINOIDS NEG (NEG); COCAINE NEG (NEG); METHADONE NEG (NEG); OPIATES NEG (NEG); PHENCYCLIDINE NEG (NEG)
[2019-06-09 08:13] LABS: ALBUMIN 3.9 g/dL (3.4-5.0); ALBUMIN/GLOBULIN RATIO 1.1 (1.0-1.7); TOTAL BILIRUBIN 0.3 mg/dL (0.2-1.0); TOTAL PROTEIN 7.5 g/dL (6.4-8.2)
[2019-06-09] MEDS ORDERED: ROCURONIUM 50 MG/5 ML VIAL. IV ONE (08:15)
[2019-06-09] MEDS ORDERED: IV NORMAL SALINE 1000ML BAG 1,000 ML IV ONE ×2 (08:15→08:45)
[2019-06-09] MEDS ORDERED: PROPOFOL 10 MG/ML (20ML) VIAL. IV ONE (08:15)
[2019-06-09] MEDS ORDERED: ATROPINE 0.5 MG/5 ML DISP.SYRINGE. IV ONE (08:15)
[2019-06-09 08:18] LABS: AMPHETAMINE/METHAMPHETAMINE NEG (NEG)
--- NOTE | 2019-06-09 08:19 | RAD ---
CHEST AP ONLY Clinical Indication: Intubation Comparison: 09/13/2018. Findings: Portable upright frontal view of chest was obtained. Enteric tube in place although the distal aspect of it is not included on this chest x-ray exam. Endotracheal tube terminates 4.4 cm from the carolyn. The cardiomediastinal silhouette is normal. Opacity at the lateral right mid thoracic level appears correspond to nipple shadow.. There is no pneumothorax. Minimal left costophrenic angle blunting is present. Minimal left basilar atelectasis noted. Minimal left pleural effusion suspected. No acute bone abnormality. IMPRESSION: Minimal left basilar atelectasis. Possibility of minimal left pleural effusion. Endotracheal tube in place. Electronically signed by: Norberto Clifford MD (06/09/2019 8:15 AM) [facility]
[2019-06-09 08:35] LABS: BASE EXCESS COOX -12 mmol/L (-3-3); HCO3 COOX 20 mmol/L (21-28); METHEMOGLOBIN 0.4 % (0.0-1.9); OXYHEMOGLOBIN 93.1 %; PO2 COOX 333 mmHg (85-108); SAT O2 COOX 99 % (92-99)
[2019-06-09 08:37] LABS: PCO2 COOX 71 mmHg (35-46)
[2019-06-09] MEDS ORDERED: MIDAZOLAM HCL/PF 5 MG/5 ML VIAL. ONE (08:55)
[2019-06-09] MEDS ORDERED: ELECTROLYTE (ICU) PROTOCOL. MC PRN (09:00)
[2019-06-09] MEDS ORDERED: PROPOFOL 50 ML IV ONE (09:11)
--- NOTE | 2019-06-09 09:11 | RAD ---
KUB 06/09/2019 8:41 AM INDICATION: OG placement COMPARISON: Chest radiograph 06/09/2019 TECHNIQUE: Single supine view the abdomen is provided. FINDINGS/ IMPRESSION: 1. Supine technique limits evaluation for free intraperitoneal air. 2. Nasogastric tube is identified with the side port projecting over the gastric lumen in the left upper quadrant abdomen. 2. Nonobstructive bowel gas pattern. There is no pneumatosis coli. 3. No suspicious osseous normality. Electronically signed by: Esther Bryant MD (06/09/2019 9:08 AM) [id number]
[2019-06-09] MEDS ORDERED: MORPHINE SULFATE 4 MG/ML VIAL. IV PRN (09:15)
[2019-06-09] MEDS ORDERED: MIDAZOLAM HCL/PF 2 MG/2 ML VIAL. IV PRN (09:15)
[2019-06-09] MEDS ORDERED: 0.9 % SODIUM CHLORIDE 10 ML DISP.SYRIN. IV PRN (09:15)
[2019-06-09] MEDS ORDERED: fentaNYL PF VIAL 100 MCG/2 ML VIAL IV PRN ×2 (09:15)
[2019-06-09] MEDS ORDERED: POLYVINYL ALCOHOL 1.4% OPHTH SOLUTION 15ML BOTTLE. OU PRN (09:15)
[2019-06-09] MEDS ORDERED: MORPHINE SULFATE 2 MG/ML VIAL. IV PRN (09:15)
[2019-06-09] MEDS ORDERED: MIDAZOLAM HCL 50 MG in IV NORMAL SALINE 50ML 50 ML IV PRN (09:15)
[2019-06-09] MEDS ORDERED: BISACODYL 10 MG SUPP.RECT. PR PRN (09:15)
[2019-06-09] MEDS ORDERED: ACETAMINOPHEN 325 MG TABLET. PO PRN (09:15)
[2019-06-09] MEDS ORDERED: diphenhydrAMINE 50 MG/ML VIAL IVP PRN (09:15)
[2019-06-09] MEDS ORDERED: LACTULOSE 20 GM/30 ML SOLUTION. PO PRN (09:15)
--- NOTE | 2019-06-09 09:23 | EKG ---
[facility] [address] [place] [address] Test Date: 2019-06-09 Test Time: 07:20:53 Pat Name: ADELITA HENSLEY Department: Room: Gender: F Leg Man: : 1980 Requested By: RICH JONES Order Number: [id number] Reading MD: Measurements Intervals [place] Rate: 138 P: -110 [place]: 86 QRS: 54 QRSD: 86 T: 65 QT: 306 QTc: 470 Interpretive Statements SUPRAVENTRICULAR TACHYCARDIA COMPLEX(ES) WITH ABERRANT INTRAVENTRICULAR CONDUCTION VENTRICULAR PREMATURE COMPLEX(ES) NON SPECIFIC ST DEPRESSION ABNORMAL ECG No previous ECG available for comparison
--- NOTE | 2019-06-09 09:42 | PDOC1 ---
History and Physical Date of Admission Date of Admission 06/09/2019 Identification/Chief Complaint Chief Complaint altered mental status Source Source: Chart review, Unable to obtain due to (some details by her field nurse case manager, patient is sedated and intubated ) History of Present Illness History of Present Illness Patient is a 39 year old female with past medical history of polysusbstance abuse and alcohol abuse who was in her usual state of health until this morning when he had apparently seizure like activity, no loss of sphincters reported. EMS was summoned to the scene and she was given Versed en route. Patient unfo rtunately was not able to protect oher airway and had to be intubated. Patient at the present time is sedated and on menchanical ventilation. As per her social media strategist who is at bedside, she does not have a history of seizure disorder. She has had regular drug testing in the outpatient setting and she has been drug free for at least 6 months now. She does not know of recent infections, cough or sick contacts either. No history of taking prescription medications either. She is being admitted to the ICU for further evaluation and treatment. Past Medical History Cardiovascular: No pertinent hx GI: No pertinent hx Psych: Depression Past Surgical History Past Surgical History: Other Family History Family History: Family History Unknown Social History Smoke: No ALCOHOL: occassional Drugs: None, Cocaine, Marijuana, Other Current Problem List Problem List Problems Medical Problems: (1) Acute respiratory failure with hypoxia and hypercapnia Status: Acute (2) Status epilepticus Status: Acute Current Medications Current Medications Current Medications Medications (Trade) Dose Ordered Sig/Rupinder Start Time Stop Time Status Last Admin Dose Admin Albuterol Sulfate (Ventolin Neb Soln) 2.5 mg STK-MED ONCE 06/09/19 07:17 06/09/19 07:18 DC Albuterol/ Ipratropium (Duoneb) 3 ml STK-MED ONCE 06/09/19 07:17 06/09/19 07:18 DC Atropine Sulfate (ATROPINE 0.5mg SYRINGE) 0.5 mg 1X ONCE 06/09/19 08:15 06/09/19 08:16 DC 06/09/19 07:23 0.5 MG Levetiracetam 1500 mg/Dextrose 115 ml @ 440 mls/hr 1X ONCE 06/09/19 07:45 06/09/19 08:00 DC 06/09/19 07:53 440 MLS/HR Midazolam HCl (Versed) 5 mg STK-MED ONCE 06/09/19 08:55 06/09/19 08:55 DC Propofol 50 ml @ As Directed STK-MED ONCE 06/09/19 09:11 06/09/19 09:11 DC Propofol (Diprivan) 100 mg 1X ONCE 06/09/19 08:15 06/09/19 08:16 DC 06/09/19 07:43 100 MG Rocuronium [place] (Zemuron) 50 mg 1X ONCE 06/09/19 08:15 06/09/19 08:16 DC 06/09/19 07:43 50 MG Sodium Chloride 1,000 ml @ 1,000 mls/hr 1X ONCE 06/09/19 08:45 06/09/19 09:44 06/09/19 09:02 1,000 MLS/HR Allergies Allergies Allergies Coded Allergies Type Severity Reaction Last Updated Verified No Known Drug Allergies 06/09/13 No ROS Review of System Unable to obtain due to sedation and intubation Physical Exam Physical Exam GEN.: No apparent distress. Sedated well developed HEENT: Head is normocephalic, atraumatic NECK: Supple. LUNGS: Coarse breath sounds to auscultation. HEART: RRR, S1, S2 present. Peripheral pulses intact ABDOMEN: Soft, nontender. Positive bowel sounds. EXTREMITIES: Without any cyanosis. NEUROLOGIC: Sedated PSYCHIATRIC: unable to assess SKIN: No ulcerations Vitals Vitals Vital Signs Date Time Temp Pulse Resp B/P (MAP) Pulse Ox O2 Delivery O2 Flow Rate FiO2 06/09/19 08:38 98 Ventilator 06/09/19 07:55 148 06/09/19 07:45 12 06/09/19 07:22 96.3 158/89 (112) 96.3 Labs Labs Laboratory Tests Test 06/09/19 07:20 06/09/19 07:34 06/09/19 08:04 06/09/19 08:30 White Blood Count 12.9 x10^3/uL (4.0-11.0) Red Blood Count 4.92 x10^6/uL (3.50-5.40) Hemoglobin 15.1 g/dL (12.0-15.5) Hematocrit 47.2 % (36.0-47.0) Mean Corpuscular Volume 96 fL (79-100) Mean Corpuscular Hemoglobin 31 pg (25-35) Mean Corpuscular Hemoglobin Concent 32 g/dL (31-37) Red Cell Distribution Width 14.4 % (11.5-14.5) Platelet Count 305 x10^3/uL (140-400) Neutrophils (%) (Auto) 50 % (31-73) Lymphocytes (%) (Auto) 42 % (24-48) Monocytes (%) (Auto) 4 % (0-9) Eosinophils (%) (Auto) 2 % (0-3) Basophils (%) (Auto) 3 % (0-3) Neutrophils # (Auto) 6.4 x10^3/uL (1.8-7.7) Lymphocytes # (Auto) 5.5 x10^3/uL (1.0-4.8) Monocytes # (Auto) 0.4 x10^3/uL (0.0-1.1) Eosinophils # (Auto) 0.2 x10^3/uL (0.0-0.7) Basophils # (Auto) 0.4 x10^3/uL (0.0-0.2) Sodium Level 137 mmol/L (136-145) Potassium Level 3.8 mmol/L (3.5-5.1) Chloride Level 101 mmol/L (98-107) Carbon Dioxide Level 12 mmol/L (21-32) Anion Gap 24 (6-14) Blood Urea Nitrogen 7 mg/dL (7-20) Creatinine 1.5 mg/dL (0.6-1.0) Estimated GFR (Cockcroft-Gault) 47.0 BUN/Creatinine Ratio 5 (6-20) Glucose Level 281 mg/dL (70-99) Lactic Acid Level 14.3 mmol/L (0.4-2.0) Calcium Level 9.3 mg/dL (8.5-10.1) Total Bilirubin 0.3 mg/dL (0.2-1.0) Aspartate Amino Transf (AST/SGOT) 48 U/L (15-37) Alanine Aminotransferase (ALT/SGPT) 57 U/L (14-59) Alkaline Phosphatase 106 U/L (46-116) Creatine Kinase 94 U/L (26-192) Total Protein 7.5 g/dL (6.4-8.2) Albumin 3.9 g/dL (3.4-5.0) Albumin/Globulin Ratio 1.1 (1.0-1.7) Procalcitonin < 0.10 ng/mL (0.00-0.10) Serum Test, Qualitative Negative (NEG) Ethyl Alcohol Level < 10 mg/dL (0-10) Urine Collection Type U cath Urine Color Yellow Urine Clarity Clear Urine pH 6.0 Urine Specific [place] 1.015 Urine Protein 100 mg/dL (NEG-TRACE) Urine Glucose (UA) 250 mg/dL (NEG) Urine Ketones (Stick) Negative mg/dL (NEG) Urine Blood Small (NEG) Urine Nitrite Negative (NEG) Urine Bilirubin Negative (NEG) Urine Urobilinogen Dipstick 0.2 mg/dL (0.2 mg/dL) Urine Leukocyte Esterase Negative (NEG) Urine RBC 3-5 /HPF (0-2) Urine WBC 1-4 /HPF (0-4) Urine Squamous Epithelial Cells Occ /LPF Urine Bacteria 0 /HPF (0-FEW) Urine Opiates Screen Neg (NEG) Urine Methadone Screen Neg (NEG) Urine Barbiturates Neg (NEG) Urine Phencyclidine Screen Neg (NEG) Urine Amphetamine/Methamphetamine Neg (NEG) Urine Benzodiazepines Screen Pos (NEG) Urine Cocaine Screen Neg (NEG) Urine Cannabinoids Screen Neg (NEG) Urine Ethyl Alcohol Neg (NEG) Bedside Urine HCG, Qualitative Hcg negative (Negative) O2 Saturation 99 % (92-99) Arterial Blood pH 7.06 (7.35-7.45) Arterial Blood pCO2 at Patient Temp 71 mmHg (35-46) Arterial Blood pO2 at Patient Temp 333 mmHg (85-108) Arterial Blood HCO3 20 mmol/L (21-28) Arterial Blood Base Excess -12 mmol/L (-3-3) Oxyhemoglobin 93.1 % Methemoglobin 0.4 % (0.0-1.9) Carbon Monoxide, Quantitative 5.5 % (0.0-1.9) Laboratory Tests Test 06/09/19 07:20 06/09/19 07:34 06/09/19 08:04 06/09/19 08:30 White Blood Count 12.9 x10^3/uL (4.0-11.0) Red Blood Count 4.92 x10^6/uL (3.50-5.40) Hemoglobin 15.1 g/dL (12.0-15.5) Hematocrit 47.2 % (36.0-47.0) Mean Corpuscular Volume 96 fL (79-100) Mean Corpuscular Hemoglobin 31 pg (25-35) Mean Corpuscular Hemoglobin Concent 32 g/dL (31-37) Red Cell Distribution Width 14.4 % (11.5-14.5) Platelet Count 305 x10^3/uL (140-400) Neutrophils (%) (Auto) 50 % (31-73) Lymphocytes (%) (Auto) 42 % (24-48) Monocytes (%) (Auto) 4 % (0-9) Eosinophils (%) (Auto) 2 % (0-3) Basophils (%) (Auto) 3 % (0-3) Neutrophils # (Auto) 6.4 x10^3/uL (1.8-7.7) Lymphocytes # (Auto) 5.5 x10^3/uL (1.0-4.8) Monocytes # (Auto) 0.4 x10^3/uL (0.0-1.1) Eosinophils # (Auto) 0.2 x10^3/uL (0.0-0.7) Basophils # (Auto) 0.4 x10^3/uL (0.0-0.2) Sodium Level 137 mmol/L (136-145) Potassium Level 3.8 mmol/L (3.5-5.1) Chloride Level 101 mmol/L (98-107) Carbon Dioxide Level 12 mmol/L (21-32) Anion Gap 24 (6-14) Blood Urea Nitrogen 7 mg/dL (7-20) Creatinine 1.5 mg/dL (0.6-1.0) Estimated GFR (Cockcroft-Gault) 47.0 BUN/Creatinine Ratio 5 (6-20) Glucose Level 281 mg/dL (70-99) Lactic Acid Level 14.3 mmol/L (0.4-2.0) Calcium Level 9.3 mg/dL (8.5-10.1) Total Bilirubin 0.3 mg/dL (0.2-1.0) Aspartate Amino Transf (AST/SGOT) 48 U/L (15-37) Alanine Aminotransferase (ALT/SGPT) 57 U/L (14-59) Alkaline Phosphatase 106 U/L (46-116) Creatine Kinase 94 U/L (26-192) Total Protein 7.5 g/dL (6.4-8.2) Albumin 3.9 g/dL (3.4-5.0) Albumin/Globulin Ratio 1.1 (1.0-1.7) Procalcitonin < 0.10 ng/mL (0.00-0.10) Serum Test, Qualitative Negative (NEG) Ethyl Alcohol Level < 10 mg/dL (0-10) Urine Collection Type U cath Urine Color Yellow Urine Clarity Clear Urine pH 6.0 Urine Specific [place] 1.015 Urine Protein 100 mg/dL (NEG-TRACE) Urine Glucose (UA) 250 mg/dL (NEG) Urine Ketones (Stick) Negative mg/dL (NEG) Urine Blood Small (NEG) Urine Nitrite Negative (NEG) Urine Bilirubin Negative (NEG) Urine Urobilinogen Dipstick 0.2 mg/dL (0.2 mg/dL) Urine Leukocyte Esterase Negative (NEG) Urine RBC 3-5 /HPF (0-2) Urine WBC 1-4 /HPF (0-4) Urine Squamous Epithelial Cells Occ /LPF Urine Bacteria 0 /HPF (0-FEW) Urine Opiates Screen Neg (NEG) Urine Methadone Screen Neg (NEG) Urine Barbiturates Neg (NEG) Urine Phencyclidine Screen Neg (NEG) Urine Amphetamine/Methamphetamine Neg (NEG) Urine Benzodiazepines Screen Pos (NEG) Urine Cocaine Screen Neg (NEG) Urine Cannabinoids Screen Neg (NEG) Urine Ethyl Alcohol Neg (NEG) Bedside Urine HCG, Qualitative Hcg negative (Negative) O2 Saturation 99 % (92-99) Arterial Blood pH 7.06 (7.35-7.45) Arterial Blood pCO2 at Patient Temp 71 mmHg (35-46) Arterial Blood pO2 at Patient Temp 333 mmHg (85-108) Arterial Blood HCO3 20 mmol/L (21-28) Arterial Blood Base Excess -12 mmol/L (-3-3) Oxyhemoglobin 93.1 % Methemoglobin 0.4 % (0.0-1.9) Carbon Monoxide, Quantitative 5.5 % (0.0-1.9) VTE Prophylaxis Ordered VTE Prophylaxis Devices: No VTE Pharmacological Prophylaxi: Yes Assessment/Plan Assessment/Plan Acute Encephalopathy etiology undetermined at the present time seems to be metabolic in nature Seizure activity? High anion gap metabolic acidosis secondary to lactic acidosis Elevated lactate Acute hypercapnic respiratory failure history of alcohol abuse history of polysubstance abuse Plan: admit to the icu vent management as per pulmonary, initial ventilator bundle orders have been placed will start empiric antibiotics repeat lactic acid propofol for sedation may use versed if seizure activity presents Fentanyl for pain management DVT prophylaxis: heparin once Ct head results available and no evidence of intracranial process reported GI prophylaxis: BETTE Mejía MD Jun 09, 2019 09:42
--- NOTE | 2019-06-09 09:46 | RAD ---
CT HEAD WO CONTRAST Clinical indications: Altered mental status. Seizure. COMPARISON: September 13, 2018. Technique: Noncontrast axial cross sectional scanning of the head was performed. PQRS compliance Statement One or more of the following individualized dose reduction techniques were utilized for this study: 1. Automated exposure control 2. Adjustment of the mA and/or kV according to patient size 3. Use of iterative reconstruction technique Findings: No acute intracranial hemorrhage or midline shift or mass-effect or hydrocephalus or extra-axial fluid collection is seen. No focal hypodense area or sulci effacement is seen to indicate an acute infarct or edema radiographically. No skull fracture or pneumocephalus is seen. No opacification of the mastoid sinuses or the middle ear cavities or the paranasal sinuses is seen. The maxillary sinuses are not completely seen in this study. Impression: No acute intracranial abnormality is seen. Electronically signed by: Jason Kent MD (06/09/2019 9:43 AM) [id number]
[2019-06-09 10:07] LABS: SALIC 7.3 mg/dL (2.8-20.0)
[2019-06-09] MEDS ORDERED: CARI4.5C PO (10:40)
[2019-06-09] MEDS ORDERED: SERT50TA8 PO (10:40)
[2019-06-09] MEDS ORDERED: VANCOMYCIN 1.75 GM in IV NORMAL SALINE 500ML BAG 500 ML IV ONE (10:45)
--- NOTE | 2019-06-09 10:59 | CONS ---
DATE OF CONSULTATION: 06/09/2019 ATTENDING PHYSICIAN: Jose Martin Kinsey MD REASON FOR CONSULTATION: Respiratory failure and seizure. HISTORY OF PRESENT ILLNESS: The patient is a 39-year-old female, who has history of polysubstance abuse and alcohol abuse. She was brought into the hospital after she had a prolonged seizure, which lasted for 30 minutes. The patient received Versed. She was intubated. She is currently on assist control mode. Her arterial blood gases initially showed a pH of 7.06, pCO2 of 71 and a pO2 of 333 on 100% FiO2. Followup ABGs are pending. Her chest x-ray showed minimal atelectasis of the right base. Otherwise, no other abnormalities seen. I have been asked to see her for further evaluation. PAST MEDICAL HISTORY: Significant for history of depression. Been followed at [facility]. SURGERIES: None recently. ALLERGIES: None. MEDICATIONS: Reviewed as listed in the MRAD, including sedation along with heparin for DVT prophylaxis. REVIEW OF SYSTEMS: Unable to obtain from the patient. SOCIAL HISTORY: Has history of polysubstance abuse, history of hep C, and history of syphilis. PHYSICAL EXAMINATION: VITAL SIGNS: On examination, her vital signs were reviewed. Pulse ox 98%. HEENT: Sclerae nonicteric. NECK: Supple. LUNGS: With diminished breath sounds. CARDIOVASCULAR: With a regular rate. ABDOMEN: Soft. EXTREMITIES: With no pitting edema. LABORATORY DATA: Reviewed. Lactic acid was 14.3. ABGs as discussed in my history of present illness. White cell count 12.9, hemoglobin 15.1 and platelets are 305. Urine drug screen was positive for benzos and alcohol less than 10. IMPRESSION: 1. Acute hypercapnic respiratory failure secondary to status epilepticus. 2. Seizure disorder acute lasting 30 minutes. Currently postictal. 3. History of polysubstance abuse. 4. Marked lactic acidosis secondary to seizure and unlikely sepsis. 5. Urine drug screen positive for benzos. 6. Mild reactive leukocytosis. RECOMMENDATIONS: 1. Continue with present assist control mode and follow ABGs and make necessary adjustments. 2. We will add empiric antibiotic. Clinically, no signs of infection at present. Atelectasis seen on the chest x-ray. 3. Follow Neurology recommendations. 4. DVT prophylaxis. 5. If the patient is seizure free in the next 24 hours, we will do a CPAP trial off sedation. 6. Discussed with RN and RT. We will follow along with you. CRITICAL CARE TIME: 35 minutes. TERRIE WADDELL MD DR: KAL/nirav JOB#: [id number] / [id number]
[2019-06-09] MEDS ORDERED: VANCOMYCIN 1.5 GM in IV NORMAL SALINE 500ML BAG 500 ML IV ONE (11:00)
--- NOTE | 2019-06-09 11:03 | PDOC2 ---
NEUROLOGY CONSULT Date of Admission Date of Admission DATE: 06/09/19 TIME: 10:54 History of Present Illness History of Present Illness Patient is a 39 year old female with past medical history of polysusbstance abuse and alcohol abuse who had apparently seizure like activity. Family told [employer] manager who told nurse at the patient has been having some brief seizures for the past several months but refuse to see a doctor. She has been in a residential for her psychiatric disorders. She had a seizure en route by EMS and they gave her versed, then the patient needed intubation. An emergency department the patient was sedated, placed on Keppra, and has had no further overt seizures. The patient has been substance free for about 6 months. Past Medical History CENTRAL NERVOUS SYSTEM: Seizure Hepatobiliary: Hep A/B/C Psych: Bipolar, Depression Past Surgical History Past Surgical History: No pertinent history Family History Family History: No pertinent hx Social History Social History In a residential. Current Medications Current Medications Current Medications Albuterol Sulfate (Ventolin Neb Soln) 2.5 mg STK-MED ONCE .ROUTE ; Start 06/09/19 at 07:17; Stop 06/09/19 at 07:18; Status DC Albuterol/ Ipratropium (Duoneb) 3 ml STK-MED ONCE .ROUTE ; Start 06/09/19 at 07:17; Stop 06/09/19 at 07:18; Status DC Atropine Sulfate (ATROPINE 0.5mg SYRINGE) 0.5 mg STK-MED ONCE .ROUTE ; Start 06/09/19 at 07:21; Stop 06/09/19 at 07:22; Status DC Levetiracetam 1500 mg/Dextrose 115 ml @ 440 mls/hr 1X ONCE IV Last administered on 06/09/19at 07:53; Start 06/09/19 at 07:45; Stop 06/09/19 at 08:00; Status DC Propofol 0 ml @ As Directed STK-MED ONCE IV ; Start 06/09/19 at 07:41; Stop 06/09/19 at 07:41; Status DC Propofol 100 ml @ 0 mls/hr CONT PRN IV SEE PROTOCOL Last administered on 06/09/19at 07:56; Start 06/09/19 at 08:00; Stop 06/09/19 at 09:38; Status DC Rocuronium [place] (Zemuron) 50 mg STK-MED ONCE .ROUTE ; Start 06/09/19 at 07:56; Stop 06/09/19 at 07:56; Status DC Atropine Sulfate (ATROPINE 0.5mg SYRINGE) 0.5 mg 1X ONCE IV Last administered on 06/09/19at 07:23; Start 06/09/19 at 08:15; Stop 06/09/19 at 08:16; Status DC Sodium Chloride 1,000 ml @ 1,000 mls/hr 1X ONCE IV Last administered on 06/09/19at 07:51; Start 06/09/19 at 08:15; Stop 06/09/19 at 09:14; Status DC Rocuronium [place] (Zemuron) 50 mg 1X ONCE IV Last administered on 06/09/19at 07:43; Start 06/09/19 at 08:15; Stop 06/09/19 at 08:16; Status DC Propofol (Diprivan) 100 mg 1X ONCE IV Last administered on 06/09/19at 07:43; Start 06/09/19 at 08:15; Stop 06/09/19 at 08:16; Status DC Sodium Chloride 1,000 ml @ 1,000 mls/hr 1X ONCE IV Last administered on 06/09/19at 09:02; Start 06/09/19 at 08:45; Stop 06/09/19 at 09:44; Status DC Midazolam HCl (Versed) 5 mg STK-MED ONCE .ROUTE ; Start 06/09/19 at 08:55; Stop 06/09/19 at 08:55; Status DC Propofol 50 ml @ As Directed STK-MED ONCE IV ; Start 06/09/19 at 09:11; Stop 06/09/19 at 09:11; Status DC Acetaminophen (Tylenol) 650 mg Q6H PRN PO Headaches, Temp > 101.5'; Start 06/09/19 at 09:15 Lorazepam (Ativan Inj) 0.5 mg PRN Q6HRS PRN IV ANXIETY / AGITATION; Start 06/09/19 at 09:15 Famotidine (Pepcid Vial) 20 mg BID IVP ; Start 06/09/19 at 10:00 Info (Icu Electrolyte Protocol) 1 ea PRN DAILY PRN MC SEE COMMENTS; Start 06/09/19 at 09:00 Heparin Sodium (Porcine) (Heparin Sodium) 5,000 unit Q8HRS SQ ; Start 06/09/19 at 14:00 Sodium Chloride (Normal Saline Flush) 3 ml QSHIFT PRN IV AFTER MEDS AND BLOOD DRAWS; Start 06/09/19 at 09:15 Lactulose (Lactulose) 20 gm PRN Q12HR PRN PO CONSTIPATION; Start 06/09/19 at 09:15 Bisacodyl (Dulcolax Supp) 10 mg PRN DAILY PRN ME CONSTIPATION; Start 06/09/19 at 09:15 Fentanyl Citrate 30 ml @ 0 mls/hr CONT PRN IV SEE PROTOCOL; Start 06/09/19 at 09:15 Lorazepam (Ativan Inj) 2 mg PRN Q15MIN PRN IV SEVERE WITHDRAWAL; Start 06/09/19 at 09:15; Stop 06/10/19 at 09:14 Propofol 100 ml @ 0 mls/hr CONT PRN IV SEE PROTOCOL; Start 06/09/19 at 09:15 Fentanyl Citrate (Fentanyl 2ml Vial) 25 mcg PRN Q1HR PRN IV SEE COMMENTS; Start 06/09/19 at 09:15 Fentanyl Citrate (Fentanyl 2ml Vial) 50 mcg PRN Q1HR PRN IV SEE COMMENTS; Start 06/09/19 at 09:15 Chlorhexidine Gluconate (Peridex) 15 ml BID MM ; Start 06/09/19 at 21:00 Artificial Tears (Artificial Tears) 1 drop PRN Q1HR PRN OU DRY EYE; Start 06/09/19 at 09:15 Morphine Sulfate (Morphine Sulfate) 2 mg PRN Q1HR PRN IV SEE COMMENTS.; Start 06/09/19 at 09:15 Morphine Sulfate (Morphine Sulfate) 4 mg PRN Q1HR PRN IV SEE COMMENTS.; Start 06/09/19 at 09:15 Midazolam HCl (Versed) 1 mg PRN Q30MIN PRN IV SEE COMMENTS.; Start 06/09/19 at 09:15 Midazolam HCl 50 mg/Sodium Chloride 50 ml @ 0 mls/hr CONT PRN IV SEE PROTOCOL; Start 06/09/19 at 09:15 Diphenhydramine HCl (Benadryl) 25 mg PRN Q15MIN PRN IVP EPS Symptoms; Start 06/09/19 at 09:15 Vancomycin HCl 1.75 gm/Sodium Chloride 500 ml @ 250 mls/hr 1X ONCE IV ; Start 06/09/19 at 10:45; Stop 06/09/19 at 12:44; Status UNV Piperacillin Sod/ Tazobactam Sod 3.375 gm/Sodium Chloride 50 ml @ 100 mls/hr Q6HRS IV ; Start 06/09/19 at 12:00 Vancomycin HCl 1.5 gm/Sodium Chloride 500 ml @ 250 mls/hr 1X ONCE IV ; Start 06/09/19 at 11:00; Stop 06/09/19 at 12:59 Vancomycin HCl (Vanco Per Pharmacy) 1 each PRN DAILY PRN MC SEE COMMENTS; Start 06/09/19 at 11:00 Active Scripts Active Keflex (Cephalexin) 500 Mg Capsule 1 Cap PO TID Cephalexin 500 Mg Capsule 1 Cap PO QID 10 Days Reported Sertraline Hcl 50 Mg Tablet 50 Mg PO DAILY Vraylar (Cariprazine Hydrochloride) 4.5 Mg Capsule 1 Cap PO DAILY 30 Days No Known Medications Prior To Admisstion (Info) Each 1 Each MC Allergies Allergies: Coded Allergies: No Known Drug Allergies (Unverified , 06/09/13) ROS Review of System Negative for fever, chills, weight loss, shortness of breath, chest pain, indigestion, hematochezia, melena, and dysuria. Full 14-point review of systems is negative. Physical Exam Physical Examination General: Well-developed, well-nourished female in no acute distress HEENT: Normocephalic andatraumatic. Temporal arteriespulsatile Neck: Supple without bruit, no meningismus Musculoskeletal: Stability:see neurologic. Gait exam:see neurologic. Tone:see neurologic.Strength:see neurologic. Neurological: Mental Status: orientation, memory, attention span/concentration, language, fund of knowledge: intubated, sedated, on vent. Cranial Nerves:Pupils equal and reactive to light. There is no facial asymmetry. Vestibulo-ocular reflex is intact. All other cranial related problems are negative except as mentioned before.Reflexes:2+ and symmetric with silent plantar responses. Motor:withdr olamide to pain. Coordination and gait:Not testable. Sensory:not testable Vitals VITALS Vital Signs Date Time Temp Pulse Resp B/P (MAP) Pulse Ox O2 Delivery O2 Flow Rate FiO2 06/09/19 09:20 122 98 06/09/19 08:38 Ventilator 06/09/19 07:45 12 06/09/19 07:22 96.3 158/89 (112) 96.3 Labs Labs Laboratory Tests Test 06/09/19 07:20 06/09/19 07:34 06/09/19 08:04 06/09/19 08:30 White Blood Count 12.9 x10^3/uL (4.0-11.0) Red Blood Count 4.92 x10^6/uL (3.50-5.40) Hemoglobin 15.1 g/dL (12.0-15.5) Hematocrit 47.2 % (36.0-47.0) Mean Corpuscular Volume 96 fL (79-100) Mean Corpuscular Hemoglobin 31 pg (25-35) Mean Corpuscular Hemoglobin Concent 32 g/dL (31-37) Red Cell Distribution Width 14.4 % (11.5-14.5) Platelet Count 305 x10^3/uL (140-400) Neutrophils (%) (Auto) 50 % (31-73) Lymphocytes (%) (Auto) 42 % (24-48) Monocytes (%) (Auto) 4 % (0-9) Eosinophils (%) (Auto) 2 % (0-3) Basophils (%) (Auto) 3 % (0-3) Neutrophils # (Auto) 6.4 x10^3/uL (1.8-7.7) Lymphocytes # (Auto) 5.5 x10^3/uL (1.0-4.8) Monocytes # (Auto) 0.4 x10^3/uL (0.0-1.1) Eosinophils # (Auto) 0.2 x10^3/uL (0.0-0.7) Basophils # (Auto) 0.4 x10^3/uL (0.0-0.2) Sodium Level 137 mmol/L (136-145) Potassium Level 3.8 mmol/L (3.5-5.1) Chloride Level 101 mmol/L (98-107) Carbon Dioxide Level 12 mmol/L (21-32) Anion Gap 24 (6-14) Blood Urea Nitrogen 7 mg/dL (7-20) Creatinine 1.5 mg/dL (0.6-1.0) Estimated GFR (Cockcroft-Gault) 47.0 BUN/Creatinine Ratio 5 (6-20) Glucose Level 281 mg/dL (70-99) Lactic Acid Level 14.3 mmol/L (0.4-2.0) Calcium Level 9.3 mg/dL (8.5-10.1) Total Bilirubin 0.3 mg/dL (0.2-1.0) Aspartate Amino Transf (AST/SGOT) 48 U/L (15-37) Alanine Aminotransferase (ALT/SGPT) 57 U/L (14-59) Alkaline Phosphatase 106 U/L (46-116) Creatine Kinase 94 U/L (26-192) Total Protein 7.5 g/dL (6.4-8.2) Albumin 3.9 g/dL (3.4-5.0) Albumin/Globulin Ratio 1.1 (1.0-1.7) Procalcitonin < 0.10 ng/mL (0.00-0.10) Thyroid Stimulating Hormone (TSH) 2.122 uIU/mL (0.358-3.74) Serum Test, Qualitative Negative (NEG) Salicylates Level 7.3 mg/dL (2.8-20.0) Salicylate Last Dose Date Unknown Salicylate Last Dose Time Unknown Ethyl Alcohol Level < 10 mg/dL (0-10) Urine Collection Type U cath Urine Color Yellow Urine Clarity Clear Urine pH 6.0 Urine Specific [place] 1.015 Urine Protein 100 mg/dL (NEG-TRACE) Urine Glucose (UA) 250 mg/dL (NEG) Urine Ketones (Stick) Negative mg/dL (NEG) Urine Blood Small (NEG) Urine Nitrite Negative (NEG) Urine Bilirubin Negative (NEG) Urine Urobilinogen Dipstick 0.2 mg/dL (0.2 mg/dL) Urine Leukocyte Esterase Negative (NEG) Urine RBC 3-5 /HPF (0-2) Urine WBC 1-4 /HPF (0-4) Urine Squamous Epithelial Cells Occ /LPF Urine Bacteria 0 /HPF (0-FEW) Urine Opiates Screen Neg (NEG) Urine Methadone Screen Neg (NEG) Urine Barbiturates Neg (NEG) Urine Phencyclidine Screen Neg (NEG) Urine Amphetamine/Methamphetamine Neg (NEG) Urine Benzodiazepines Screen Pos (NEG) Urine Cocaine Screen Neg (NEG) Urine Cannabinoids Screen Neg (NEG) Urine Ethyl Alcohol Neg (NEG) Bedside Urine HCG, Qualitative Hcg negative (Negative) O2 Saturation 99 % (92-99) Arterial Blood pH 7.06 (7.35-7.45) Arterial Blood pCO2 at Patient Temp 71 mmHg (35-46) Arterial Blood pO2 at Patient Temp 333 mmHg (85-108) Arterial Blood HCO3 20 mmol/L (21-28) Arterial Blood Base Excess -12 mmol/L (-3-3) Oxyhemoglobin 93.1 % Methemoglobin 0.4 % (0.0-1.9) Carbon Monoxide, Quantitative 5.5 % (0.0-1.9) Laboratory Tests Test 06/09/19 07:20 06/09/19 07:34 06/09/19 08:04 06/09/19 08:30 White Blood Count 12.9 x10^3/uL (4.0-11.0) Red Blood Count 4.92 x10^6/uL (3.50-5.40) Hemoglobin 15.1 g/dL (12.0-15.5) Hematocrit 47.2 % (36.0-47.0) Mean Corpuscular Volume 96 fL (79-100) Mean Corpuscular Hemoglobin 31 pg (25-35) Mean Corpuscular Hemoglobin Concent 32 g/dL (31-37) Red Cell Distribution Width 14.4 % (11.5-14.5) Platelet Count 305 x10^3/uL (140-400) Neutrophils (%) (Auto) 50 % (31-73) Lymphocytes (%) (Auto) 42 % (24-48) Monocytes (%) (Auto) 4 % (0-9) Eosinophils (%) (Auto) 2 % (0-3) Basophils (%) (Auto) 3 % (0-3) Neutrophils # (Auto) 6.4 x10^3/uL (1.8-7.7) Lymphocytes # (Auto) 5.5 x10^3/uL (1.0-4.8) Monocytes # (Auto) 0.4 x10^3/uL (0.0-1.1) Eosinophils # (Auto) 0.2 x10^3/uL (0.0-0.7) Basophils # (Auto) 0.4 x10^3/uL (0.0-0.2) Sodium Level 137 mmol/L (136-145) Potassium Level 3.8 mmol/L (3.5-5.1) Chloride Level 101 mmol/L (98-107) Carbon Dioxide Level 12 mmol/L (21-32) Anion Gap 24 (6-14) Blood Urea Nitrogen 7 mg/dL (7-20) Creatinine 1.5 mg/dL (0.6-1.0) Estimated GFR (Cockcroft-Gault) 47.0 BUN/Creatinine Ratio 5 (6-20) Glucose Level 281 mg/dL (70-99) Lactic Acid Level 14.3 mmol/L (0.4-2.0) Calcium Level 9.3 mg/dL (8.5-10.1) Total Bilirubin 0.3 mg/dL (0.2-1.0) Aspartate Amino Transf (AST/SGOT) 48 U/L (15-37) Alanine Aminotransferase (ALT/SGPT) 57 U/L (14-59) Alkaline Phosphatase 106 U/L (46-116) Creatine Kinase 94 U/L (26-192) Total Protein 7.5 g/dL (6.4-8.2) Albumin 3.9 g/dL (3.4-5.0) Albumin/Globulin Ratio 1.1 (1.0-1.7) Procalcitonin < 0.10 ng/mL (0.00-0.10) Thyroid Stimulating Hormone (TSH) 2.122 uIU/mL (0.358-3.74) Serum Test, Qualitative Negative (NEG) Salicylates Level 7.3 mg/dL (2.8-20.0) Salicylate Last Dose Date Unknown Salicylate Last Dose Time Unknown Ethyl Alcohol Level < 10 mg/dL (0-10) Urine Collection Type U cath Urine Color Yellow Urine Clarity Clear Urine pH 6.0 Urine Specific [place] 1.015 Urine Protein 100 mg/dL (NEG-TRACE) Urine Glucose (UA) 250 mg/dL (NEG) Urine Ketones (Stick) Negative mg/dL (NEG) Urine Blood Small (NEG) Urine Nitrite Negative (NEG) Urine Bilirubin Negative (NEG) Urine Urobilinogen Dipstick 0.2 mg/dL (0.2 mg/dL) Urine Leukocyte Esterase Negative (NEG) Urine RBC 3-5 /HPF (0-2) Urine WBC 1-4 /HPF (0-4) Urine Squamous Epithelial Cells Occ /LPF Urine Bacteria 0 /HPF (0-FEW) Urine Opiates Screen Neg (NEG) Urine Methadone Screen Neg (NEG) Urine Barbiturates Neg (NEG) Urine Phencyclidine Screen Neg (NEG) Urine Amphetamine/Methamphetamine Neg (NEG) Urine Benzodiazepines Screen Pos (NEG) Urine Cocaine Screen Neg (NEG) Urine Cannabinoids Screen Neg (NEG) Urine Ethyl Alcohol Neg (NEG) Bedside Urine HCG, Qualitative Hcg negative (Negative) O2 Saturation 99 % (92-99) Arterial Blood pH 7.06 (7.35-7.45) Arterial Blood pCO2 at Patient Temp 71 mmHg (35-46) Arterial Blood pO2 at Patient Temp 333 mmHg (85-108) Arterial Blood HCO3 20 mmol/L (21-28) Arterial Blood Base Excess -12 mmol/L (-3-3) Oxyhemoglobin 93.1 % Methemoglobin 0.4 % (0.0-1.9) Carbon Monoxide, Quantitative 5.5 % (0.0-1.9) Images Images CT HEAD WO CONTRAST No acute intracranial hemorrhage or midline shift or mass-effect or hydrocephalus or extra-axial fluid collection is seen. No focal hypodense area or sulci effacement is seen to indicate an acute infarct or edema radiographically. No skull fracture or pneumocephalus is seen. No opacification of the mastoid sinuses or the middle ear cavities or the paranasal sinuses is seen. The maxillary sinuses are not completely seen in this study. Impression: No acute intracranial abnormality is seen. Assessment/Plan Assessment/Plan Impression: Several seizures, now intubated and sedated, she has been having seizures for several months, but has not had workup.Urine drug screen showed benzodiazepines, drawn after she received versed Recommendations: Continue midazolam and levetiracetam EEG would not be helpful under sedation, especially since there are no overt seizures. EEG and MRI next week Hold on lumbar puncture Thank you for letting me help with the patient's care. CHRISTINE VARGAS MD Jun 09, 2019 11:03
[2019-06-09 11:08] LABS: BASE EXCESS ABG -6 mmol/L (-3-3); HCO3 ABG 19 mmol/L (21-28); PCO2 ABG 34 mmHg (35-46); PO2 ABG 65 mmHg (85-108); SAT O2 ABG 92 % (92-99)
[2019-06-09 11:13] LABS: FIO2 ABG 50
[2019-06-09] MEDS: FAMOTIDINE 20 MG/2 ML VIAL IVP SCH ×2 (11:36→21:43)
[2019-06-09] MEDS: PROPOFOL 100 ML IV PRN ×4 (11:37→23:49)
[2019-06-09] MEDS: VANCOMYCIN PER PHARMACY MC PRN (12:38)
--- NOTE | 2019-06-09 12:41 | NUR ---
Pharmacy Vancomycin Dosing Note S: Consulted to monitor and dose vancomycin started 06/09/19. O: ADELITA HENSLEY is a 39 year old F Empiric treatment, ASPIRATION PNEUMONIA . Other Antibiotics: ZOSYN LABS: Last BUN: 7 Last Creatinine: 1.5 Creatinine Clearance: 55 mL/min Last WBC: 12.9 Last Procalcitonin: < 0.1 Tmax (past 24 hours): AFEBRILE Vancomycin Dosing: Dosing Weight: Actual Target Trough: 15-20 A: Based on: VANCO dosing guidelines P: 1. Begin Vancomycin 1500mg LOAD dose, then 1000 mg IV q18h 2. Follow up Trough level on 06/10/19 at 2330 3. Pharmacy will continue to monitor, follow and adjust therapy as needed. DARLENE BALLARD [facility], 06/09/19 [id number]
[2019-06-09] MEDS: PIPERACILLIN/TAZOBACTAM 3.375 GM in IV NORMAL SALINE 50ML 50 ML IV SCH ×3 (13:45→23:53)
--- NOTE | 2019-06-09 17:27 | NUR ---
Patient admitted to room 106 at 0945. Patient on ventilator, consults called to Dr. Burrell, Dr. Bergeron. Patient's VS stable. On Propofol gtt. Patient's sister able to answer part of admission requirements. EEG, CT head done. No seizures throughout shift. No fevers. VS stable. See assessments.
[2019-06-09] MEDS: HEPARIN for SUB-Q USE 5,000 UNIT/ML VIAL. SQ SCH ×2 (17:36→22:16)
[2019-06-09] MEDS: CHLORHEXIDINE 0.12% 15 ML MOUTHWASH. MM SCH (21:00)
[2019-06-09] MEDS: levETIRAcetam 500 MG in IV DEXTROSE 5% 100ML 100 ML IV SCH (21:43)
[2019-06-10] VITALS (19 sets, daily range): BP systolic 75–159; BP diastolic 52–93
[2019-06-10 04:51] LABS: BASO # 0.1 x10^3/uL (0.0-0.2); BASO % 1 % (0-3); EOS % 0 % (0-3); HEMATOCRIT 39.4 % (36.0-47.0); HEMOGLOBIN 13.1 g/dL (12.0-15.5); LYMPH # 1.9 x10^3/uL (1.0-4.8); LYMPH % 13 % (24-48); MEAN CORPUSCULAR HEMOGLOBIN 30 pg (25-35); MEAN CORPUSCULAR HGB CONC 33 g/dL (31-37); MEAN CORPUSCULAR VOLUME 91 fL (79-100); MONO # 0.9 x10^3/uL (0.0-1.1); MONO % 6 % (0-9); NEUT # 11.1 x10^3/uL (1.8-7.7); NEUT % 80 % (31-73); PLATELET COUNT 230 x10^3/uL (140-400); RED BLOOD COUNT 4.34 x10^6/uL (3.50-5.40); RED CELL DISTRIBUTION WIDTH 13.7 % (11.5-14.5); WHITE BLOOD COUNT 13.9 x10^3/uL (4.0-11.0)
[2019-06-10 05:03] LABS: CALCIUM 8.2 mg/dL (8.5-10.1); GFR 75.1; POTASSIUM 3.8 mmol/L (3.5-5.1)
[2019-06-10] MEDS: PROPOFOL 100 ML IV PRN (05:05)
[2019-06-10] MEDS: PIPERACILLIN/TAZOBACTAM 3.375 GM in IV NORMAL SALINE 50ML 50 ML IV SCH (05:49)
[2019-06-10] MEDS: HEPARIN for SUB-Q USE 5,000 UNIT/ML VIAL. SQ SCH ×3 (05:49→21:00)
[2019-06-10] MEDS ORDERED: VANCOMYCIN 1 GM in IV NORMAL SALINE 250ML 250 ML IV SCH ×2 (06:00→18:00)
[2019-06-10 07:38] LABS: BASE EXCESS ABG -3 mmol/L (-3-3); HCO3 ABG 21 mmol/L (21-28); PCO2 ABG 34 mmHg (35-46); PO2 ABG 88 mmHg (85-108); SAT O2 ABG 97 % (92-99)
[2019-06-10] MEDS: VANCOMYCIN PER PHARMACY MC PRN (07:40)
--- NOTE | 2019-06-10 07:40 | NUR ---
Pharmacy Vancomycin Dosing Note S: Consulted to monitor and dose vancomycin started 06/09/19. O: ADELITA HENSLEY is a 39 year old F with Empiric, ASPIRATION PNEUMONIA . Other Antibiotics: ZOSYN LABS: Last BUN: 9 Last Creatinine: 1 Creatinine Clearance: 81 mL/min Last WBC: 13.9 Last Procalcitonin: < 0.1 Tmax (past 24 hours): AFEBRILE Microbiology: I/O: 2723/2390 Drug Levels: Last dose given 06/10/19 at 0630 Vancomycin Dosing: Dosing Weight: Actual Target Trough: 15-20 A: Based on: vanco dosing protocol. Renal function improved, so will increase dosing frequency. P: 1. Initiate Vancomycin 1000 mg IV q12h 2. Follow up Trough level on 06/11/19 at 0530 3. Pharmacy will continue to monitor, follow and adjust therapy as needed. DINAH REYES [facility], 06/10/19 [id number]
[2019-06-10] MEDS ORDERED: VECURONIUM BOLUS 10 MG VIAL. IV ONE (07:43)
[2019-06-10 07:44] LABS: FIO2 ABG 30
--- NOTE | 2019-06-10 08:11 | RAD ---
PORTABLE CHEST 1V History: RF. Comparison with 06/09/2019. Tracheostomy tube is identified, appears overall similar position. Endogastric tube is seen extending just into the upper abdomen, tip not visualized. No evidence of pneumothorax. No evidence of infiltrate. Possible trace pleural effusions again seen. Nodular opacities are again seen over both hemithoraces, thought to be nipple shadows. Bones appear intact. IMPRESSION: Possible trace pleural effusions again seen. No consolidating infiltrate. Electronically signed by: Jacob Hernandez MD (06/10/2019 8:09 AM) [facility]
[2019-06-10] MEDS: CHLORHEXIDINE 0.12% 15 ML MOUTHWASH. MM SCH (08:57)
[2019-06-10] MEDS: levETIRAcetam 500 MG in IV DEXTROSE 5% 100ML 100 ML IV SCH (08:57)
[2019-06-10] MEDS: FAMOTIDINE 20 MG/2 ML VIAL IVP SCH ×2 (09:12→20:54)
--- NOTE | 2019-06-10 10:04 | PDOC ---
PULMONARY PROGRESS NOTES Subjective Extubated 06/10/2019/ was very agitated on vent despite sedation.we did extubated her Feeling much better, on 2 liters N/C no overnight seizure activity Vitals Vital Signs Date Time Temp Pulse Resp B/P (MAP) Pulse Ox O2 Delivery O2 Flow Rate FiO2 06/10/19 09:00 67 24 115/67 (83) 99 Nasal Cannula 06/10/19 08:15 3.0 06/10/19 08:00 97.1 97.1 ROS: No Chest Pain, No Abdominal Pain, No Increase Cough General: Alert, Oriented X4 Lungs: Clear Cardiovascular: S1, S2 Abdomen: Soft, Non-tender Neuro Exam: Alert Extremities: No Edema Skin: Warm, Dry Labs Laboratory Tests Test 06/09/19 07:20 06/09/19 07:34 06/09/19 08:04 06/09/19 08:30 White Blood Count 12.9 x10^3/uL (4.0-11.0) Red Blood Count 4.92 x10^6/uL (3.50-5.40) Hemoglobin 15.1 g/dL (12.0-15.5) Hematocrit 47.2 % (36.0-47.0) Mean Corpuscular Volume 96 fL (79-100) Mean Corpuscular Hemoglobin 31 pg (25-35) Mean Corpuscular Hemoglobin Concent 32 g/dL (31-37) Red Cell Distribution Width 14.4 % (11.5-14.5) Platelet Count 305 x10^3/uL (140-400) Neutrophils (%) (Auto) 50 % (31-73) Lymphocytes (%) (Auto) 42 % (24-48) Monocytes (%) (Auto) 4 % (0-9) Eosinophils (%) (Auto) 2 % (0-3) Basophils (%) (Auto) 3 % (0-3) Neutrophils # (Auto) 6.4 x10^3/uL (1.8-7.7) Lymphocytes # (Auto) 5.5 x10^3/uL (1.0-4.8) Monocytes # (Auto) 0.4 x10^3/uL (0.0-1.1) Eosinophils # (Auto) 0.2 x10^3/uL (0.0-0.7) Basophils # (Auto) 0.4 x10^3/uL (0.0-0.2) Sodium Level 137 mmol/L (136-145) Potassium Level 3.8 mmol/L (3.5-5.1) Chloride Level 101 mmol/L (98-107) Carbon Dioxide Level 12 mmol/L (21-32) Anion Gap 24 (6-14) Blood Urea Nitrogen 7 mg/dL (7-20) Creatinine 1.5 mg/dL (0.6-1.0) Estimated GFR (Cockcroft-Gault) 47.0 BUN/Creatinine Ratio 5 (6-20) Glucose Level 281 mg/dL (70-99) Lactic Acid Level 14.3 mmol/L (0.4-2.0) Calcium Level 9.3 mg/dL (8.5-10.1) Total Bilirubin 0.3 mg/dL (0.2-1.0) Aspartate Amino Transf (AST/SGOT) 48 U/L (15-37) Alanine Aminotransferase (ALT/SGPT) 57 U/L (14-59) Alkaline Phosphatase 106 U/L (46-116) Creatine Kinase 94 U/L (26-192) Total Protein 7.5 g/dL (6.4-8.2) Albumin 3.9 g/dL (3.4-5.0) Albumin/Globulin Ratio 1.1 (1.0-1.7) Procalcitonin < 0.10 ng/mL (0.00-0.10) Thyroid Stimulating Hormone (TSH) 2.122 uIU/mL (0.358-3.74) Serum Test, Qualitative Negative (NEG) Salicylates Level 7.3 mg/dL (2.8-20.0) Salicylate Last Dose Date Unknown Salicylate Last Dose Time Unknown Ethyl Alcohol Level < 10 mg/dL (0-10) Urine Collection Type U cath Urine Color Yellow Urine Clarity Clear Urine pH 6.0 Urine Specific [place] 1.015 Urine Protein 100 mg/dL (NEG-TRACE) Urine Glucose (UA) 250 mg/dL (NEG) Urine Ketones (Stick) Negative mg/dL (NEG) Urine Blood Small (NEG) Urine Nitrite Negative (NEG) Urine Bilirubin Negative (NEG) Urine Urobilinogen Dipstick 0.2 mg/dL (0.2 mg/dL) Urine Leukocyte Esterase Negative (NEG) Urine RBC 3-5 /HPF (0-2) Urine WBC 1-4 /HPF (0-4) Urine Squamous Epithelial Cells Occ /LPF Urine Bacteria 0 /HPF (0-FEW) Urine Opiates Screen Neg (NEG) Urine Methadone Screen Neg (NEG) Urine Barbiturates Neg (NEG) Urine Phencyclidine Screen Neg (NEG) Urine Amphetamine/Methamphetamine Neg (NEG) Urine Benzodiazepines Screen Pos (NEG) Urine Cocaine Screen Neg (NEG) Urine Cannabinoids Screen Neg (NEG) Urine Ethyl Alcohol Neg (NEG) Bedside Urine HCG, Qualitative Hcg negative (Negative) O2 Saturation 99 % (92-99) Arterial Blood pH 7.06 (7.35-7.45) Arterial Blood pCO2 at Patient Temp 71 mmHg (35-46) Arterial Blood pO2 at Patient Temp 333 mmHg (85-108) Arterial Blood HCO3 20 mmol/L (21-28) Arterial Blood Base Excess -12 mmol/L (-3-3) Oxyhemoglobin 93.1 % Methemoglobin 0.4 % (0.0-1.9) Carbon Monoxide, Quantitative 5.5 % (0.0-1.9) Test 06/09/19 11:00 06/09/19 11:10 06/09/19 11:20 06/09/19 17:51 O2 Saturation 92 % (92-99) Arterial Blood pH 7.36 (7.35-7.45) Arterial Blood pCO2 at Patient Temp 34 mmHg (35-46) Arterial Blood pO2 at Patient Temp 65 mmHg (85-108) Arterial Blood HCO3 19 mmol/L (21-28) Arterial Blood Base Excess -6 mmol/L (-3-3) FiO2 50 Lactic Acid Level 3.6 mmol/L (0.4-2.0) Procalcitonin < 0.10 ng/mL (0.00-0.10) Glucose (Fingerstick) 100 mg/dL (70-99) Test 06/09/19 23:57 06/10/19 04:30 06/10/19 07:30 Glucose (Fingerstick) 80 mg/dL (70-99) White Blood Count 13.9 x10^3/uL (4.0-11.0) Red Blood Count 4.34 x10^6/uL (3.50-5.40) Hemoglobin 13.1 g/dL (12.0-15.5) Hematocrit 39.4 % (36.0-47.0) Mean Corpuscular Volume 91 fL (79-100) Mean Corpuscular Hemoglobin 30 pg (25-35) Mean Corpuscular Hemoglobin Concent 33 g/dL (31-37) Red Cell Distribution Width 13.7 % (11.5-14.5) Platelet Count 230 x10^3/uL (140-400) Neutrophils (%) (Auto) 80 % (31-73) Lymphocytes (%) (Auto) 13 % (24-48) Monocytes (%) (Auto) 6 % (0-9) Eosinophils (%) (Auto) 0 % (0-3) Basophils (%) (Auto) 1 % (0-3) Neutrophils # (Auto) 11.1 x10^3/uL (1.8-7.7) Lymphocytes # (Auto) 1.9 x10^3/uL (1.0-4.8) Monocytes # (Auto) 0.9 x10^3/uL (0.0-1.1) Eosinophils # (Auto) 0.0 x10^3/uL (0.0-0.7) Basophils # (Auto) 0.1 x10^3/uL (0.0-0.2) Sodium Level 138 mmol/L (136-145) Potassium Level 3.8 mmol/L (3.5-5.1) Chloride Level 107 mmol/L (98-107) Carbon Dioxide Level 23 mmol/L (21-32) Anion Gap 8 (6-14) Blood Urea Nitrogen 9 mg/dL (7-20) Creatinine 1.0 mg/dL (0.6-1.0) Estimated GFR (Cockcroft-Gault) 75.1 Glucose Level 110 mg/dL (70-99) Calcium Level 8.2 mg/dL (8.5-10.1) O2 Saturation 97 % (92-99) Arterial Blood pH 7.41 (7.35-7.45) Arterial Blood pCO2 at Patient Temp 34 mmHg (35-46) Arterial Blood pO2 at Patient Temp 88 mmHg (85-108) Arterial Blood HCO3 21 mmol/L (21-28) Arterial Blood Base Excess -3 mmol/L (-3-3) FiO2 30 Laboratory Tests Test 1/10/20 11:00 06/09/19 11:10 06/09/19 11:20 06/09/19 17:51 O2 Saturation 92 % (92-99) Arterial Blood pH 7.36 (7.35-7.45) Arterial Blood pCO2 at Patient Temp 34 mmHg (35-46) Arterial Blood pO2 at Patient Temp 65 mmHg (85-108) Arterial Blood HCO3 19 mmol/L (21-28) Arterial Blood Base Excess -6 mmol/L (-3-3) FiO2 50 Lactic Acid Level 3.6 mmol/L (0.4-2.0) Procalcitonin < 0.10 ng/mL (0.00-0.10) Glucose (Fingerstick) 100 mg/dL (70-99) Test 06/09/19 23:57 06/10/19 04:30 06/10/19 07:30 Glucose (Fingerstick) 80 mg/dL (70-99) White Blood Count 13.9 x10^3/uL (4.0-11.0) Red Blood Count 4.34 x10^6/uL (3.50-5.40) Hemoglobin 13.1 g/dL (12.0-15.5) Hematocrit 39.4 % (36.0-47.0) Mean Corpuscular Volume 91 fL (79-100) Mean Corpuscular Hemoglobin 30 pg (25-35) Mean Corpuscular Hemoglobin Concent 33 g/dL (31-37) Red Cell Distribution Width 13.7 % (11.5-14.5) Platelet Count 230 x10^3/uL (140-400) Neutrophils (%) (Auto) 80 % (31-73) Lymphocytes (%) (Auto) 13 % (24-48) Monocytes (%) (Auto) 6 % (0-9) Eosinophils (%) (Auto) 0 % (0-3) Basophils (%) (Auto) 1 % (0-3) Neutrophils # (Auto) 11.1 x10^3/uL (1.8-7.7) Lymphocytes # (Auto) 1.9 x10^3/uL (1.0-4.8) Monocytes # (Auto) 0.9 x10^3/uL (0.0-1.1) Eosinophils # (Auto) 0.0 x10^3/uL (0.0-0.7) Basophils # (Auto) 0.1 x10^3/uL (0.0-0.2) Sodium Level 138 mmol/L (136-145) Potassium Level 3.8 mmol/L (3.5-5.1) Chloride Level 107 mmol/L (98-107) Carbon Dioxide Level 23 mmol/L (21-32) Anion Gap 8 (6-14) Blood Urea Nitrogen 9 mg/dL (7-20) Creatinine 1.0 mg/dL (0.6-1.0) Estimated GFR (Cockcroft-Gault) 75.1 Glucose Level 110 mg/dL (70-99) Calcium Level 8.2 mg/dL (8.5-10.1) O2 Saturation 97 % (92-99) Arterial Blood pH 7.41 (7.35-7.45) Arterial Blood pCO2 at Patient Temp 34 mmHg (35-46) Arterial Blood pO2 at Patient Temp 88 mmHg (85-108) Arterial Blood HCO3 21 mmol/L (21-28) Arterial Blood Base Excess -3 mmol/L (-3-3) FiO2 30 Medications Active Scripts Medications Dose Route/Sig Max Daily Dose Days Date Category Sertraline Hcl 50 Mg Tablet 50 Mg PO DAILY 06/09/19 Reported Vraylar (Cariprazine Hydrochloride) 4.5 Mg Capsule 1 Cap PO DAILY 30 06/09/19 Reported Keflex (Cephalexin) 500 Mg Capsule 1 Cap PO TID 04/29/18 Rx Cephalexin 500 Mg Capsule 1 Cap PO QID 10 04/21/18 Rx No Known Medications Prior To Admisstion (Info) Each 1 Each 06/09/13 Reported Impression . IMPRESSION: 1. Acute hypercapnic respiratory failure secondary to status epilepticus. 2. Seizure disorder acute lasting 30 minutes. Currently postictal. 3. History of polysubstance abuse. 4. Marked lactic acidosis secondary to seizure and unlikely sepsis. 5. Urine drug screen positive for benzos. 6. Mild reactive leukocytosis. CXR 06/10/19 IMPRESSION: Possible trace pleural effusions again seen. No consolidating infiltrate. Plan . RECOMMENDATIONS: 1. S/P extubated 06/10/2019 ---Continue with supplemental oxygen to keep sats above 92%, nebs and IS at bedside 2. D/C vancomycin and zosyn, change to po Augmentin 3. Follow Neurology recommendations. 4. DVT prophylaxis 5. reviewed CXR 6. ok to advance diet Discussed with RN and RT. We will follow along with you. cct 30 min TERRIE WADDELL MD Jun 10, 2019 10:04
[2019-06-10] MEDS ORDERED: ONDANSETRON PF 4 MG/2 ML VIAL. IVP PRN (10:15)
--- NOTE | 2019-06-10 10:36 | PDOC ---
PROGRESS NOTES History of Present Illness History of Present Illness VTE Prophylaxis Ordered VTE Prophylaxis Devices: No VTE Pharmacological Prophylaxi: Yes Assessment/Plan Assessment/Plan Acute Encephalopathy etiology undetermined at the present time seems to be metabolic in nature Seizure activity? High anion gap metabolic acidosis secondary to lactic acidosis Elevated lactate Acute hypercapnic respiratory failure history of alcohol abuse history of polysubstance abuse//overdose of pcp and cocaine 2017 Acute hypercapnic respiratory failure secondary to status epilepticus. trace pleural effusions again seen. No consolidating infiltrate. 06/10 Seizure disorder acute lasting 30 minutes. History of polysubstance abuse. Marked lactic acidosis secondary to seizure and unlikely sepsis. Plan: admit to the icu vent/// extubated 06/10 will start empiric antibiotics repeat lactic acid propofol for sedation may use versed if seizure activity presents Fentanyl for pain management DVT prophylaxis: heparin once Ct head results available and no evidence of intracranial process reported GI prophylaxis: Pepcid Vitals Vitals Vital Signs Date Time Temp Pulse Resp B/P (MAP) Pulse Ox O2 Delivery O2 Flow Rate FiO2 06/10/19 09:00 67 24 115/67 (83) 99 Nasal Cannula 06/10/19 08:15 3.0 06/10/19 08:00 97.1 97.1 Physical Exam General: Alert, Oriented X3, Cooperative, No acute distress Heart: Regular rate, Normal S1 Lungs: Clear Abdomen: Normal bowel sounds, Soft, No tenderness Extremities: No cyanosis Labs LABS PORTABLE CHEST 1V History: RF. Comparison with 06/09/2019. Tracheostomy tube is identified, appears overall similar position. Endogastric tube is seen extending just into the upper abdomen, tip not visualized. No evidence of pneumothorax. No evidence of infiltrate. Possible trace pleural effusions again seen. Nodular opacities are again seen over both hemithoraces, thought to be nipple shadows. Bones appear intact. IMPRESSION: Possible trace pleural effusions again seen. No consolidating infiltrate. Electronically signed by: Jodi Hernandez MD (06/10/2019 8:09 AM) [facility] DICTATED and SIGNED BY: JODI HERNANDEZ MD DATE: 06/10/19 0809 Laboratory Tests Test 06/09/19 11:00 06/09/19 11:10 06/09/19 11:20 06/09/19 17:51 O2 Saturation 92 % (92-99) Arterial Blood pH 7.36 (7.35-7.45) Arterial Blood pCO2 at Patient Temp 34 mmHg (35-46) Arterial Blood pO2 at Patient Temp 65 mmHg (85-108) Arterial Blood HCO3 19 mmol/L (21-28) Arterial Blood Base Excess -6 mmol/L (-3-3) FiO2 50 Lactic Acid Level 3.6 mmol/L (0.4-2.0) Procalcitonin < 0.10 ng/mL (0.00-0.10) Glucose (Fingerstick) 100 mg/dL (70-99) Test 06/09/19 23:57 06/10/19 04:30 06/10/19 07:30 Glucose (Fingerstick) 80 mg/dL (70-99) White Blood Count 13.9 x10^3/uL (4.0-11.0) Red Blood Count 4.34 x10^6/uL (3.50-5.40) Hemoglobin 13.1 g/dL (12.0-15.5) Hematocrit 39.4 % (36.0-47.0) Mean Corpuscular Volume 91 fL (79-100) Mean Corpuscular Hemoglobin 30 pg (25-35) Mean Corpuscular Hemoglobin Concent 33 g/dL (31-37) Red Cell Distribution Width 13.7 % (11.5-14.5) Platelet Count 230 x10^3/uL (140-400) Neutrophils (%) (Auto) 80 % (31-73) Lymphocytes (%) (Auto) 13 % (24-48) Monocytes (%) (Auto) 6 % (0-9) Eosinophils (%) (Auto) 0 % (0-3) Basophils (%) (Auto) 1 % (0-3) Neutrophils # (Auto) 11.1 x10^3/uL (1.8-7.7) Lymphocytes # (Auto) 1.9 x10^3/uL (1.0-4.8) Monocytes # (Auto) 0.9 x10^3/uL (0.0-1.1) Eosinophils # (Auto) 0.0 x10^3/uL (0.0-0.7) Basophils # (Auto) 0.1 x10^3/uL (0.0-0.2) Sodium Level 138 mmol/L (136-145) Potassium Level 3.8 mmol/L (3.5-5.1) Chloride Level 107 mmol/L (98-107) Carbon Dioxide Level 23 mmol/L (21-32) Anion Gap 8 (6-14) Blood Urea Nitrogen 9 mg/dL (7-20) Creatinine 1.0 mg/dL (0.6-1.0) Estimated GFR (Cockcroft-Gault) 75.1 Glucose Level 110 mg/dL (70-99) Calcium Level 8.2 mg/dL (8.5-10.1) O2 Saturation 97 % (92-99) Arterial Blood pH 7.41 (7.35-7.45) Arterial Blood pCO2 at Patient Temp 34 mmHg (35-46) Arterial Blood pO2 at Patient Temp 88 mmHg (85-108) Arterial Blood HCO3 21 mmol/L (21-28) Arterial Blood Base Excess -3 mmol/L (-3-3) FiO2 30 Assessment and Plan Assessmemt and Plan Problems Medical Problems: (1) Acute respiratory failure with hypoxia and hypercapnia Status: Acute (2) Status epilepticus Status: Acute Comment Review of Relevant I have reviewed the following items jass (where applicable) has been applied. Labs Laboratory Tests Test 06/09/19 07:20 06/09/19 07:34 06/09/19 08:04 06/09/19 08:30 White Blood Count 12.9 x10^3/uL (4.0-11.0) Red Blood Count 4.92 x10^6/uL (3.50-5.40) Hemoglobin 15.1 g/dL (12.0-15.5) Hematocrit 47.2 % (36.0-47.0) Mean Corpuscular Volume 96 fL (79-100) Mean Corpuscular Hemoglobin 31 pg (25-35) Mean Corpuscular Hemoglobin Concent 32 g/dL (31-37) Red Cell Distribution Width 14.4 % (11.5-14.5) Platelet Count 305 x10^3/uL (140-400) Neutrophils (%) (Auto) 50 % (31-73) Lymphocytes (%) (Auto) 42 % (24-48) Monocytes (%) (Auto) 4 % (0-9) Eosinophils (%) (Auto) 2 % (0-3) Basophils (%) (Auto) 3 % (0-3) Neutrophils # (Auto) 6.4 x10^3/uL (1.8-7.7) Lymphocytes # (Auto) 5.5 x10^3/uL (1.0-4.8) Monocytes # (Auto) 0.4 x10^3/uL (0.0-1.1) Eosinophils # (Auto) 0.2 x10^3/uL (0.0-0.7) Basophils # (Auto) 0.4 x10^3/uL (0.0-0.2) Sodium Level 137 mmol/L (136-145) Potassium Level 3.8 mmol/L (3.5-5.1) Chloride Level 101 mmol/L (98-107) Carbon Dioxide Level 12 mmol/L (21-32) Anion Gap 24 (6-14) Blood Urea Nitrogen 7 mg/dL (7-20) Creatinine 1.5 mg/dL (0.6-1.0) Estimated GFR (Cockcroft-Gault) 47.0 BUN/Creatinine Ratio 5 (6-20) Glucose Level 281 mg/dL (70-99) Lactic Acid Level 14.3 mmol/L (0.4-2.0) Calcium Level 9.3 mg/dL (8.5-10.1) Total Bilirubin 0.3 mg/dL (0.2-1.0) Aspartate Amino Transf (AST/SGOT) 48 U/L (15-37) Alanine Aminotransferase (ALT/SGPT) 57 U/L (14-59) Alkaline Phosphatase 106 U/L (46-116) Creatine Kinase 94 U/L (26-192) Total Protein 7.5 g/dL (6.4-8.2) Albumin 3.9 g/dL (3.4-5.0) Albumin/Globulin Ratio 1.1 (1.0-1.7) Procalcitonin < 0.10 ng/mL (0.00-0.10) Thyroid Stimulating Hormone (TSH) 2.122 uIU/mL (0.358-3.74) Serum Test, Qualitative Negative (NEG) Salicylates Level 7.3 mg/dL (2.8-20.0) Salicylate Last Dose Date Unknown Salicylate Last Dose Time Unknown Ethyl Alcohol Level < 10 mg/dL (0-10) Urine Collection Type U cath Urine Color Yellow Urine Clarity Clear Urine pH 6.0 Urine Specific Rydal 1.015 Urine Protein 100 mg/dL (NEG-TRACE) Urine Glucose (UA) 250 mg/dL (NEG) Urine Ketones (Stick) Negative mg/dL (NEG) Urine Blood Small (NEG) Urine Nitrite Negative (NEG) Urine Bilirubin Negative (NEG) Urine Urobilinogen Dipstick 0.2 mg/dL (0.2 mg/dL) Urine Leukocyte Esterase Negative (NEG) Urine RBC 3-5 /HPF (0-2) Urine WBC 1-4 /HPF (0-4) Urine Squamous Epithelial Cells Occ /LPF Urine Bacteria 0 /HPF (0-FEW) Urine Opiates Screen Neg (NEG) Urine Methadone Screen Neg (NEG) Urine Barbiturates Neg (NEG) Urine Phencyclidine Screen Neg (NEG) Urine Amphetamine/Methamphetamine Neg (NEG) Urine Benzodiazepines Screen Pos (NEG) Urine Cocaine Screen Neg (NEG) Urine Cannabinoids Screen Neg (NEG) Urine Ethyl Alcohol Neg (NEG) Bedside Urine HCG, Qualitative Hcg negative (Negative) O2 Saturation 99 % (92-99) Arterial Blood pH 7.06 (7.35-7.45) Arterial Blood pCO2 at Patient Temp 71 mmHg (35-46) Arterial Blood pO2 at Patient Temp 333 mmHg (85-108) Arterial Blood HCO3 20 mmol/L (21-28) Arterial Blood Base Excess -12 mmol/L (-3-3) Oxyhemoglobin 93.1 % Methemoglobin 0.4 % (0.0-1.9) Carbon Monoxide, Quantitative 5.5 % (0.0-1.9) Test 06/09/19 11:00 06/09/19 11:10 06/09/19 11:20 06/09/19 17:51 O2 Saturation 92 % (92-99) Arterial Blood pH 7.36 (7.35-7.45) Arterial Blood pCO2 at Patient Temp 34 mmHg (35-46) Arterial Blood pO2 at Patient Temp 65 mmHg (85-108) Arterial Blood HCO3 19 mmol/L (21-28) Arterial Blood Base Excess -6 mmol/L (-3-3) FiO2 50 Lactic Acid Level 3.6 mmol/L (0.4-2.0) Procalcitonin < 0.10 ng/mL (0.00-0.10) Glucose (Fingerstick) 100 mg/dL (70-99) Test 06/09/19 23:57 06/10/19 04:30 06/10/19 07:30 Glucose (Fingerstick) 80 mg/dL (70-99) White Blood Count 13.9 x10^3/uL (4.0-11.0) Red Blood Count 4.34 x10^6/uL (3.50-5.40) Hemoglobin 13.1 g/dL (12.0-15.5) Hematocrit 39.4 % (36.0-47.0) Mean Corpuscular Volume 91 fL (79-100) Mean Corpuscular Hemoglobin 30 pg (25-35) Mean Corpuscular Hemoglobin Concent 33 g/dL (31-37) Red Cell Distribution Width 13.7 % (11.5-14.5) Platelet Count 230 x10^3/uL (140-400) Neutrophils (%) (Auto) 80 % (31-73) Lymphocytes (%) (Auto) 13 % (24-48) Monocytes (%) (Auto) 6 % (0-9) Eosinophils (%) (Auto) 0 % (0-3) Basophils (%) (Auto) 1 % (0-3) Neutrophils # (Auto) 11.1 x10^3/uL (1.8-7.7) Lymphocytes # (Auto) 1.9 x10^3/uL (1.0-4.8) Monocytes # (Auto) 0.9 x10^3/uL (0.0-1.1) Eosinophils # (Auto) 0.0 x10^3/uL (0.0-0.7) Basophils # (Auto) 0.1 x10^3/uL (0.0-0.2) Sodium Level 138 mmol/L (136-145) Potassium Level 3.8 mmol/L (3.5-5.1) Chloride Level 107 mmol/L (98-107) Carbon Dioxide Level 23 mmol/L (21-32) Anion Gap 8 (6-14) Blood Urea Nitrogen 9 mg/dL (7-20) Creatinine 1.0 mg/dL (0.6-1.0) Estimated GFR (Cockcroft-Gault) 75.1 Glucose Level 110 mg/dL (70-99) Calcium Level 8.2 mg/dL (8.5-10.1) O2 Saturation 97 % (92-99) Arterial Blood pH 7.41 (7.35-7.45) Arterial Blood pCO2 at Patient Temp 34 mmHg (35-46) Arterial Blood pO2 at Patient Temp 88 mmHg (85-108) Arterial Blood HCO3 21 mmol/L (21-28) Arterial Blood Base Excess -3 mmol/L (-3-3) FiO2 30 Laboratory Tests Test 06/09/19 11:00 06/09/19 11:10 06/09/19 11:20 06/09/19 17:51 O2 Saturation 92 % (92-99) Arterial Blood pH 7.36 (7.35-7.45) Arterial Blood pCO2 at Patient Temp 34 mmHg (35-46) Arterial Blood pO2 at Patient Temp 65 mmHg (85-108) Arterial Blood HCO3 19 mmol/L (21-28) Arterial Blood Base Excess -6 mmol/L (-3-3) FiO2 50 Lactic Acid Level 3.6 mmol/L (0.4-2.0) Procalcitonin < 0.10 ng/mL (0.00-0.10) Glucose (Fingerstick) 100 mg/dL (70-99) Test 06/09/19 23:57 06/10/19 04:30 06/10/19 07:30 Glucose (Fingerstick) 80 mg/dL (70-99) White Blood Count 13.9 x10^3/uL (4.0-11.0) Red Blood Count 4.34 x10^6/uL (3.50-5.40) Hemoglobin 13.1 g/dL (12.0-15.5) Hematocrit 39.4 % (36.0-47.0) Mean Corpuscular Volume 91 fL (79-100) Mean Corpuscular Hemoglobin 30 pg (25-35) Mean Corpuscular Hemoglobin Concent 33 g/dL (31-37) Red Cell Distribution Width 13.7 % (11.5-14.5) Platelet Count 230 x10^3/uL (140-400) Neutrophils (%) (Auto) 80 % (31-73) Lymphocytes (%) (Auto) 13 % (24-48) Monocytes (%) (Auto) 6 % (0-9) Eosinophils (%) (Auto) 0 % (0-3) Basophils (%) (Auto) 1 % (0-3) Neutrophils # (Auto) 11.1 x10^3/uL (1.8-7.7) Lymphocytes # (Auto) 1.9 x10^3/uL (1.0-4.8) Monocytes # (Auto) 0.9 x10^3/uL (0.0-1.1) Eosinophils # (Auto) 0.0 x10^3/uL (0.0-0.7) Basophils # (Auto) 0.1 x10^3/uL (0.0-0.2) Sodium Level 138 mmol/L (136-145) Potassium Level 3.8 mmol/L (3.5-5.1) Chloride Level 107 mmol/L (98-107) Carbon Dioxide Level 23 mmol/L (21-32) Anion Gap 8 (6-14) Blood Urea Nitrogen 9 mg/dL (7-20) Creatinine 1.0 mg/dL (0.6-1.0) Estimated GFR (Cockcroft-Gault) 75.1 Glucose Level 110 mg/dL (70-99) Calcium Level 8.2 mg/dL (8.5-10.1) O2 Saturation 97 % (92-99) Arterial Blood pH 7.41 (7.35-7.45) Arterial Blood pCO2 at Patient Temp 34 mmHg (35-46) Arterial Blood pO2 at Patient Temp 88 mmHg (85-108) Arterial Blood HCO3 21 mmol/L (21-28) Arterial Blood Base Excess -3 mmol/L (-3-3) FiO2 30 Microbiology 06/09/19 Blood Culture - Preliminary, Resulted NO GROWTH AFTER 1 DAY Medications Current Medications Albuterol Sulfate (Ventolin Neb Soln) 2.5 mg STK-MED ONCE .ROUTE ; Start 05/31 at 07:17; Stop 06/09/19 at 07:18; Status DC Albuterol/ Ipratropium (Duoneb) 3 ml STK-MED ONCE .ROUTE ; Start 06/09/19 at 0 7:17; Stop 06/09/19 at 07:18; Status DC Atropine Sulfate (ATROPINE 0.5mg SYRINGE) 0.5 mg STK-MED ONCE .ROUTE ; Start 06/09/19 at 07:21; Stop 06/09/19 at 07:22; Status DC Levetiracetam 1500 mg/Dextrose 115 ml @ 440 mls/hr 1X ONCE IV Last administered on 06/09/19at 07:53; Start 06/09/19 at 07:45; Stop 06/09/19 at 08:00; Status DC Propofol 0 ml @ As Directed STK-MED ONCE IV ; Start 06/09/19 at 07:41; Stop 06/09/19 at 07:41; Status DC Propofol 100 ml @ 0 mls/hr CONT PRN IV SEE PROTOCOL Last administered on 06/09/19at 07:56; Start 06/09/19 at 08:00; Stop 06/09/19 at 09:38; Status DC Rocuronium Oto (Zemuron) 50 mg STK-MED ONCE .ROUTE ; Start 06/09/19 at 07:56; Stop 06/09/19 at 07:56; Status DC Atropine Sulfate (ATROPINE 0.5mg SYRINGE) 0.5 mg 1X ONCE IV Last administered on 06/09/19at 07:23; Start 06/09/19 at 08:15; Stop 06/09/19 at 08:16; Status DC Sodium Chloride 1,000 ml @ 1,000 mls/hr 1X ONCE IV Last administered on 06/09/19at 07:51; Start 06/09/19 at 08:15; Stop 06/09/19 at 09:14; Status DC Rocuronium Oto (Zemuron) 50 mg 1X ONCE IV Last administered on 06/09/19at 07:43; Start 06/09/19 at 08:15; Stop 06/09/19 at 08:16; Status DC Propofol (Diprivan) 100 mg 1X ONCE IV Last administered on 06/09/19at 07:43; Start 06/09/19 at 08:15; Stop 06/09/19 at 08:16; Status DC Sodium Chloride 1,000 ml @ 1,000 mls/hr 1X ONCE IV Last administered on 06/09/19at 09:02; Start 06/09/19 at 08:45; Stop 06/09/19 at 09:44; Status DC Midazolam HCl (Versed) 5 mg STK-MED ONCE .ROUTE ; Start 06/09/19 at 08:55; Stop 06/09/19 at 08:55; Status DC Propofol 50 ml @ As Directed STK-MED ONCE IV ; Start 06/09/19 at 09:11; Stop 06/09/19 at 09:11; Status DC Acetaminophen (Tylenol) 650 mg Q6H PRN PO Headaches, Temp > 101.5'; Start 06/09/19 at 09:15 Lorazepam (Ativan Inj) 0.5 mg PRN Q6HRS PRN IV ANXIETY / AGITATION; Start 06/09/19 at 09:15 Famotidine (Pepcid Vial) 20 mg BID IVP Last administered on 06/10/19at 09:12; Start 06/09/19 at 10:00 Info (Icu Electrolyte Protocol) 1 ea PRN DAILY PRN MC SEE COMMENTS; Start 06/09/19 at 09:00 Heparin Sodium (Porcine) (Heparin Sodium) 5,000 unit Q8HRS SQ Last administered on 06/10/19at 05:49; Start 06/09/19 at 14:00 Sodium Chloride (Normal Saline Flush) 3 ml QSHIFT PRN IV AFTER MEDS AND BLOOD DRAWS; Start 06/09/19 at 09:15 Lactulose (Lactulose) 20 gm PRN Q12HR PRN PO CONSTIPATION-1ST CHOICE; Start 06/09/19 at 09:15 Bisacodyl (Dulcolax Supp) 10 mg PRN DAILY PRN ID CONSTIPATION; Start 06/09/19 at 09:15 Fentanyl Citrate 30 ml @ 0 mls/hr CONT PRN IV SEE PROTOCOL Last administered on 06/10/19at 04:49; Start 06/09/19 at 09:15; Stop 06/10/19 at 10:07; Status DC Lorazepam (Ativan Inj) 2 mg PRN Q15MIN PRN IV SEVERE WITHDRAWAL; Start 06/09/19 at 09:15; Stop 06/10/19 at 09:14; Status DC Propofol 100 ml @ 0 mls/hr CONT PRN IV SEE PROTOCOL Last administered on 06/10/19at 05:05; Start 06/09/19 at 09:15; Stop 06/10/19 at 10:07; Status DC Fentanyl Citrate (Fentanyl 2ml Vial) 25 mcg PRN Q1HR PRN IV SEE COMMENTS; Start 06/09/19 at 09:15; Stop 06/10/19 at 10:07; Status DC Fentanyl Citrate (Fentanyl 2ml Vial) 50 mcg PRN Q1HR PRN IV SEE COMMENTS Last administered on 06/09/19at 18:12; Start 06/09/19 at 09:15; Stop 06/10/19 at 10: 07; Status DC Chlorhexidine Gluconate (Peridex) 15 ml BID MM ; Start 06/09/19 at 21:00; Stop 06/10/19 at 10:07; Status DC Artificial Tears (Artificial Tears) 1 drop PRN Q1HR PRN OU DRY EYE; Start 06/09/19 at 09:15 Morphine Sulfate (Morphine Sulfate) 2 mg PRN Q1HR PRN IV SEE COMMENTS.; Start 06/09/19 at 09:15; Stop 06/10/19 at 10:07; Status DC Morphine Sulfate (Morphine Sulfate) 4 mg PRN Q1HR PRN IV SEE COMMENTS. Last administered on 06/09/19at 11:36; Start 06/09/19 at 09:15; Stop 06/10/19 at 10:07; Status DC Midazolam HCl (Versed) 1 mg PRN Q30MIN PRN IV SEE COMMENTS.; Start 06/09/19 at 09:15; Stop 06/10/19 at 10:07; Status DC Midazolam HCl 50 mg/Sodium Chloride 50 ml @ 0 mls/hr CONT PRN IV SEE PROTOCOL; Start 06/09/19 at 09:15 Diphenhydramine HCl (Benadryl) 25 mg PRN Q15MIN PRN IVP EPS Symptoms; Start 06/09/19 at 09:15 Vancomycin HCl 1.75 gm/Sodium Chloride 500 ml @ 250 mls/hr 1X ONCE IV ; Start 06/09/19 at 10:45; Stop 06/09/19 at 12:44; Status UNV Piperacillin Sod/ Tazobactam Sod 3.375 gm/Sodium Chloride 50 ml @ 100 mls/hr Q6HRS IV Last administered on 06/10/19at 05:49; Start 06/09/19 at 12:00; Stop 06/10/19 at 10:09; Status DC Vancomycin HCl 1.5 gm/Sodium Chloride 500 ml @ 250 mls/hr 1X ONCE IV Last administered on 06/09/19at 11:38; Start 06/09/19 at 11:00; Stop 06/10/19 at 10:09; Status DC Vancomycin HCl (Vanco Per Pharmacy) 1 each PRN DAILY PRN MC SEE COMMENTS Last administered on 06/10/19at 07:40; Start 06/09/19 at 11:00; Stop 06/10/19 at 10:10; Status DC Levetiracetam 500 mg/Dextrose 105 ml @ 420 mls/hr Q12HR IV Last administered on 06/10/19at 08:57; Start 06/09/19 at 21:00 Vancomycin HCl 1 gm/Sodium Chloride 250 ml @ 250 mls/hr Q18H IV Last administered on 06/10/19at 06:33; Start 06/10/19 at 06:00; Stop 06/10/19 at 07:33; Status DC Vancomycin HCl (Vancomycin Trough Level) 1 each 1X ONCE MC ; Start 06/11/19 at 05:30; Stop 06/10/19 at 10:13; Status DC Vancomycin HCl 1 gm/Sodium Chloride 250 ml @ 250 mls/hr Q12H IV ; Start 06/10/19 at 18:00; Stop 06/10/19 at 10:09; Status DC Vecuronium Oto (Norcuron Bolus) 10 mg STK-MED ONCE IV ; Start 06/10/19 at 07:43; Stop 06/10/19 at 07:43; Status DC Ondansetron HCl (Zofran) 4 mg PRN Q6HRS PRN IVP NAUSEA/VOMITING; Start 06/10/19 at 10:15 Amoxicillin/ Clavulanate Potassium (Augmentin 875/ 125mg) 1 tab BID PO ; Start 06/10/19 at 12:00 Active Scripts Active Keflex (Cephalexin) 500 Mg Capsule 1 Cap PO TID Cephalexin 500 Mg Capsule 1 Cap PO QID 10 Days Reported Sertraline Hcl 50 Mg Tablet 50 Mg PO DAILY Vraylar (Cariprazine Hydrochloride) 4.5 Mg Capsule 1 Cap PO DAILY 30 Days No Known Medications Prior To Admisstion (Info) Each 1 Each Vitals/I & O Vital Sign - Last 24 Hours 06/09/19 06/09/19 06/09/19 06/09/19 11:00 11:00 11:30 11:36 Pulse 98 96 Resp 24 24 24 B/P (MAP) 102/63 (76) 103/66 (78) Pulse Ox 100 94 99 100 O2 Delivery Ventilator Ventilator Ventilator Ventilator 06/09/19 06/09/19 06/09/19 06/09/19 12:00 12:00 12:06 13:00 Pulse 86 81 Resp 24 24 24 B/P (MAP) 93/61 (72) 103/65 (78) Pulse Ox 96 100 100 O2 Delivery Mechanical Ventilator Ventilator Ventilator Ventilator 06/09/19 06/09/19 06/09/19 06/09/19 13:13 14:00 15:00 15:45 Pulse 88 84 Resp 24 24 B/P (MAP) 101/72 (82) 105/68 (80) Pulse Ox 100 100 99 100 O2 Delivery Ventilator Ventilator Ventilator Ventilator 06/09/19 06/09/19 06/09/19 06/09/19 16:00 16:00 17:00 17:30 Temp 98.6 98.6 Pulse 94 104 Resp 24 24 B/P (MAP) 102/64 (77) 98/66 (77) Pulse Ox 100 100 100 O2 Delivery Mechanical Ventilator Ventilator Ventilator Ventilator 06/09/19 06/09/19 06/09/19 06/09/19 18:00 19:00 19:58 20:00 Temp 99.3 99.3 Pulse 108 106 100 Resp 24 29 30 B/P (MAP) 102/69 (80) 118/75 (89) 135/92 (106) Pulse Ox 100 98 100 99 O2 Delivery Ventilator Ventilator Ventilator Ventilator 06/09/19 06/09/19 06/09/19 06/09/19 20:30 21:00 21:30 22:19 Pulse 89 79 Resp 29 24 B/P (MAP) 105/67 (80) 97/62 (74) Pulse Ox 98 98 99 O2 Delivery Mechanical Ventilator Ventilator Ventilator Ventilator 06/09/19 06/09/19 06/10/19 06/10/19 23:11 23:36 00:00 00:00 Temp 99.3 99.3 Pulse 86 92 Resp 24 24 B/P (MAP) 111/72 (85) 110/77 (88) Pulse Ox 99 100 96 O2 Delivery Ventilator Ventilator Ventilator Mechanical Ventilator 06/10/19 06/10/19 06/10/19 06/10/19 01:02 02:22 02:36 03:12 Pulse 85 60 72 Resp 24 24 24 B/P (MAP) 96/55 (69) 103/70 (81) 88/54 (65) Pulse Ox 98 100 100 100 O2 Delivery Ventilator Ventilator Ventilator Ventilator 06/10/19 06/10/19 06/10/19 06/10/19 04:14 04:30 05:07 05:17 Temp 98.3 98.3 Pulse 78 69 Resp 24 24 B/P (MAP) 91/57 (68) 95/59 (71) Pulse Ox 99 97 98 O2 Delivery Ventilator Mechanical Ventilator Ventilator Ventilator 06/10/19 06/10/19 06/10/19 06/10/19 05:59 07:00 07:15 08:00 Temp 97.1 97.1 Pulse 72 86 54 Resp 24 24 24 B/P (MAP) 86/52 (63) 94/58 (70) 75/53 (60) Pulse Ox 99 100 100 100 O2 Delivery Ventilator Ventilator Ventilator Ventilator 06/10/19 06/10/19 06/10/19 08:00 08:15 09:00 Pulse 67 Resp 24 B/P (MAP) 115/67 (83) Pulse Ox 99 O2 Delivery Mechanical Ventilator Nasal Cannula Nasal Cannula O2 Flow Rate 3.0 Intake and Output 06/09/19 06/09/19 06/10/19 15:00 23:00 07:00 Intake Total 1665 ml 338 ml 720.99 ml Output Total 1465 ml 550 ml 450 ml Balance 200 ml -212 ml 270.99 ml FRANCISCO NUGENT MD Jun 10, 2019 10:36
[2019-06-10] MEDS ORDERED: FLU VAX QS 2019-20 (36MOS+)/PF 0.5 ML SYRINGE. VAX IM ONE (11:00)
[2019-06-10] MEDS: AMOXICILLIN/K CLAV 875/125MG TABLET. PO SCH ×2 (11:32→20:54)
[2019-06-10] MEDS ORDERED: ELECTROLYTE (NON-ICU) PROTOCOL MC PRN (18:00)
--- NOTE | 2019-06-10 18:01 | NUR ---
PATIENT TRANSFERRED FROM ICU TO ROOM 250. PATIENT STABLE AT TIME OF TRANSFER. PATIENT WITH NO COMPLAINTS OF PAIN AT THIS TIME. PATIENT GIVEN CALL LIGHT. TELE MONITOR ON PATIENT. WILL CONTINUE TO MONITOR.
--- NOTE | 2019-06-10 19:50 | PDOC ---
PROGRESS NOTES Assessment Problems Medical Problems: (1) Acute respiratory failure with hypoxia and hypercapnia Status: Acute (2) Status epilepticus Status: Acute Several seizures, now extubated, back to baseline Psychiatric disorder, confined to [facility] Plan Continue midazolam and levetiracetam EEG and MRI on 06/12 if patient not discharged tomorrow, otherwise as outpatient Levetiracetam at least 6 months Patient told she cannot drive until she has gone 6 months without a seizure Subjective no complaints Objective Vital Signs Date Time Temp Pulse Resp B/P (MAP) Pulse Ox O2 Delivery O2 Flow Rate FiO2 06/10/19 17:00 98.7 53 23 129/93 (105) 99 Room Air 98.7 06/10/19 11:00 2.0 Intake and Output 06/10/19 07:00 Intake Total 2723.99 ml Output Total 2465 ml Balance 258.99 ml Intake IV Total 2311.99 ml Tube Feeding 162 ml Other 250 ml Output Urine Total 2340 ml Gastric Drainage Total 125 ml PHYSICAL EXAM Alert. Oriented to time, place and person. PERRL. EOMI. CN: no focal findings. Muscle tone: normal. Muscle strength: 5/5 DTR: 2+ Plantar reflex: flexor Gait: normal. Sensory exam: no abnormal findings. No cerebellar signs elicited. Review of Relevant I have reviewed the following items jass (where applicable) has been applied. Labs Laboratory Tests Test 06/09/19 07:20 06/09/19 07:34 06/09/19 08:04 06/09/19 08:30 White Blood Count 12.9 x10^3/uL (4.0-11.0) Red Blood Count 4.92 x10^6/uL (3.50-5.40) Hemoglobin 15.1 g/dL (12.0-15.5) Hematocrit 47.2 % (36.0-47.0) Mean Corpuscular Volume 96 fL (79-100) Mean Corpuscular Hemoglobin 31 pg (25-35) Mean Corpuscular Hemoglobin Concent 32 g/dL (31-37) Red Cell Distribution Width 14.4 % (11.5-14.5) Platelet Count 305 x10^3/uL (140-400) Neutrophils (%) (Auto) 50 % (31-73) Lymphocytes (%) (Auto) 42 % (24-48) Monocytes (%) (Auto) 4 % (0-9) Eosinophils (%) (Auto) 2 % (0-3) Basophils (%) (Auto) 3 % (0-3) Neutrophils # (Auto) 6.4 x10^3/uL (1.8-7.7) Lymphocytes # (Auto) 5.5 x10^3/uL (1.0-4.8) Monocytes # (Auto) 0.4 x10^3/uL (0.0-1.1) Eosinophils # (Auto) 0.2 x10^3/uL (0.0-0.7) Basophils # (Auto) 0.4 x10^3/uL (0.0-0.2) Sodium Level 137 mmol/L (136-145) Potassium Level 3.8 mmol/L (3.5-5.1) Chloride Level 101 mmol/L (98-107) Carbon Dioxide Level 12 mmol/L (21-32) Anion Gap 24 (6-14) Blood Urea Nitrogen 7 mg/dL (7-20) Creatinine 1.5 mg/dL (0.6-1.0) Estimated GFR (Cockcroft-Gault) 47.0 BUN/Creatinine Ratio 5 (6-20) Glucose Level 281 mg/dL (70-99) Lactic Acid Level 14.3 mmol/L (0.4-2.0) Calcium Level 9.3 mg/dL (8.5-10.1) Total Bilirubin 0.3 mg/dL (0.2-1.0) Aspartate Amino Transf (AST/SGOT) 48 U/L (15-37) Alanine Aminotransferase (ALT/SGPT) 57 U/L (14-59) Alkaline Phosphatase 106 U/L (46-116) Creatine Kinase 94 U/L (26-192) Total Protein 7.5 g/dL (6.4-8.2) Albumin 3.9 g/dL (3.4-5.0) Albumin/Globulin Ratio 1.1 (1.0-1.7) Procalcitonin < 0.10 ng/mL (0.00-0.10) Thyroid Stimulating Hormone (TSH) 2.122 uIU/mL (0.358-3.74) Serum Test, Qualitative Negative (NEG) Salicylates Level 7.3 mg/dL (2.8-20.0) Salicylate Last Dose Date Unknown Salicylate Last Dose Time Unknown Ethyl Alcohol Level < 10 mg/dL (0-10) Urine Collection Type U cath Urine Color Yellow Urine Clarity Clear Urine pH 6.0 Urine Specific [place] 1.015 Urine Protein 100 mg/dL (NEG-TRACE) Urine Glucose (UA) 250 mg/dL (NEG) Urine Ketones (Stick) Negative mg/dL (NEG) Urine Blood Small (NEG) Urine Nitrite Negative (NEG) Urine Bilirubin Negative (NEG) Urine Urobilinogen Dipstick 0.2 mg/dL (0.2 mg/dL) Urine Leukocyte Esterase Negative (NEG) Urine RBC 3-5 /HPF (0-2) Urine WBC 1-4 /HPF (0-4) Urine Squamous Epithelial Cells Occ /LPF Urine Bacteria 0 /HPF (0-FEW) Urine Opiates Screen Neg (NEG) Urine Methadone Screen Neg (NEG) Urine Barbiturates Neg (NEG) Urine Phencyclidine Screen Neg (NEG) Urine Amphetamine/Methamphetamine Neg (NEG) Urine Benzodiazepines Screen Pos (NEG) Urine Cocaine Screen Neg (NEG) Urine Cannabinoids Screen Neg (NEG) Urine Ethyl Alcohol Neg (NEG) Bedside Urine HCG, Qualitative Hcg negative (Negative) O2 Saturation 99 % (92-99) Arterial Blood pH 7.06 (7.35-7.45) Arterial Blood pCO2 at Patient Temp 71 mmHg (35-46) Arterial Blood pO2 at Patient Temp 333 mmHg (85-108) Arterial Blood HCO3 20 mmol/L (21-28) Arterial Blood Base Excess -12 mmol/L (-3-3) Oxyhemoglobin 93.1 % Methemoglobin 0.4 % (0.0-1.9) Carbon Monoxide, Quantitative 5.5 % (0.0-1.9) Test 06/09/19 11:00 06/09/19 11:10 06/09/19 11:20 06/09/19 17:51 O2 Saturation 92 % (92-99) Arterial Blood pH 7.36 (7.35-7.45) Arterial Blood pCO2 at Patient Temp 34 mmHg (35-46) Arterial Blood pO2 at Patient Temp 65 mmHg (85-108) Arterial Blood HCO3 19 mmol/L (21-28) Arterial Blood Base Excess -6 mmol/L (-3-3) FiO2 50 Lactic Acid Level 3.6 mmol/L (0.4-2.0) Procalcitonin < 0.10 ng/mL (0.00-0.10) Glucose (Fingerstick) 100 mg/dL (70-99) Test 06/09/19 23:57 06/10/19 04:30 06/10/19 07:30 Glucose (Fingerstick) 80 mg/dL (70-99) White Blood Count 13.9 x10^3/uL (4.0-11.0) Red Blood Count 4.34 x10^6/uL (3.50-5.40) Hemoglobin 13.1 g/dL (12.0-15.5) Hematocrit 39.4 % (36.0-47.0) Mean Corpuscular Volume 91 fL (79-100) Mean Corpuscular Hemoglobin 30 pg (25-35) Mean Corpuscular Hemoglobin Concent 33 g/dL (31-37) Red Cell Distribution Width 13.7 % (11.5-14.5) Platelet Count 230 x10^3/uL (140-400) Neutrophils (%) (Auto) 80 % (31-73) Lymphocytes (%) (Auto) 13 % (24-48) Monocytes (%) (Auto) 6 % (0-9) Eosinophils (%) (Auto) 0 % (0-3) Basophils (%) (Auto) 1 % (0-3) Neutrophils # (Auto) 11.1 x10^3/uL (1.8-7.7) Lymphocytes # (Auto) 1.9 x10^3/uL (1.0-4.8) Monocytes # (Auto) 0.9 x10^3/uL (0.0-1.1) Eosinophils # (Auto) 0.0 x10^3/uL (0.0-0.7) Basophils # (Auto) 0.1 x10^3/uL (0.0-0.2) Sodium Level 138 mmol/L (136-145) Potassium Level 3.8 mmol/L (3.5-5.1) Chloride Level 107 mmol/L (98-107) Carbon Dioxide Level 23 mmol/L (21-32) Anion Gap 8 (6-14) Blood Urea Nitrogen 9 mg/dL (7-20) Creatinine 1.0 mg/dL (0.6-1.0) Estimated GFR (Cockcroft-Gault) 75.1 Glucose Level 110 mg/dL (70-99) Calcium Level 8.2 mg/dL (8.5-10.1) O2 Saturation 97 % (92-99) Arterial Blood pH 7.41 (7.35-7.45) Arterial Blood pCO2 at Patient Temp 34 mmHg (35-46) Arterial Blood pO2 at Patient Temp 88 mmHg (85-108) Arterial Blood HCO3 21 mmol/L (21-28) Arterial Blood Base Excess -3 mmol/L (-3-3) FiO2 30 Laboratory Tests Test 06/09/19 23:57 06/10/19 04:30 06/10/19 07:30 Glucose (Fingerstick) 80 mg/dL (70-99) White Blood Count 13.9 x10^3/uL (4.0-11.0) Red Blood Count 4.34 x10^6/uL (3.50-5.40) Hemoglobin 13.1 g/dL (12.0-15.5) Hematocrit 39.4 % (36.0-47.0) Mean Corpuscular Volume 91 fL (79-100) Mean Corpuscular Hemoglobin 30 pg (25-35) Mean Corpuscular Hemoglobin Concent 33 g/dL (31-37) Red Cell Distribution Width 13.7 % (11.5-14.5) Platelet Count 230 x10^3/uL (140-400) Neutrophils (%) (Auto) 80 % (31-73) Lymphocytes (%) (Auto) 13 % (24-48) Monocytes (%) (Auto) 6 % (0-9) Eosinophils (%) (Auto) 0 % (0-3) Basophils (%) (Auto) 1 % (0-3) Neutrophils # (Auto) 11.1 x10^3/uL (1.8-7.7) Lymphocytes # (Auto) 1.9 x10^3/uL (1.0-4.8) Monocytes # (Auto) 0.9 x10^3/uL (0.0-1.1) Eosinophils # (Auto) 0.0 x10^3/uL (0.0-0.7) Basophils # (Auto) 0.1 x10^3/uL (0.0-0.2) Sodium Level 138 mmol/L (136-145) Potassium Level 3.8 mmol/L (3.5-5.1) Chloride Level 107 mmol/L (98-107) Carbon Dioxide Level 23 mmol/L (21-32) Anion Gap 8 (6-14) Blood Urea Nitrogen 9 mg/dL (7-20) Creatinine 1.0 mg/dL (0.6-1.0) Estimated GFR (Cockcroft-Gault) 75.1 Glucose Level 110 mg/dL (70-99) Calcium Level 8.2 mg/dL (8.5-10.1) O2 Saturation 97 % (92-99) Arterial Blood pH 7.41 (7.35-7.45) Arterial Blood pCO2 at Patient Temp 34 mmHg (35-46) Arterial Blood pO2 at Patient Temp 88 mmHg (85-108) Arterial Blood HCO3 21 mmol/L (21-28) Arterial Blood Base Excess -3 mmol/L (-3-3) FiO2 30 Microbiology 06/09/19 Blood Culture - Preliminary, Resulted NO GROWTH AFTER 1 DAY Medications Current Medications Albuterol Sulfate (Ventolin Neb Soln) 2.5 mg STK-MED ONCE .ROUTE ; Start 06/09/19 at 07:17; Stop 06/09/19 at 07:18; Status DC Albuterol/ Ipratropium (Duoneb) 3 ml STK-MED ONCE .ROUTE ; Start 06/09/19 at 07:17; Stop 06/09/19 at 07:18; Status DC Atropine Sulfate (ATROPINE 0.5mg SYRINGE) 0.5 mg STK-MED ONCE .ROUTE ; Start 06/09/19 at 07:21; Stop 06/09/19 at 07:22; Status DC Levetiracetam 1500 mg/Dextrose 115 ml @ 440 mls/hr 1X ONCE IV Last administer ed on 06/09/19at 07:53; Start 06/09/19 at 07:45; Stop 06/09/19 at 08:00; Status DC Propofol 0 ml @ As Directed STK-MED ONCE IV ; Start 06/09/19 at 07:41; Stop 06/09/19 at 07:41; Status DC Propofol 100 ml @ 0 mls/hr CONT PRN IV SEE PROTOCOL Last administered on 06/09/19at 07:56; Start 06/09/19 at 08:00; Stop 06/09/19 at 09:38; Status DC Rocuronium [place] (Zemuron) 50 mg STK-MED ONCE .ROUTE ; Start 06/09/19 at 07:56; Stop 06/09/19 at 07:56; Status DC Atropine Sulfate (ATROPINE 0.5mg SYRINGE) 0.5 mg 1X ONCE IV Last administered on 06/09/19at 07:23; Start 06/09/19 at 08:15; Stop 06/09/19 at 08:16; Status DC Sodium Chloride 1,000 ml @ 1,000 mls/hr 1X ONCE IV Last administered on 06/09/19at 07:51; Start 06/09/19 at 08:15; Stop 06/09/19 at 09:14; Status DC Rocuronium [place] (Zemuron) 50 mg 1X ONCE IV Last administered on 06/09/19at 07:43; Start 06/09/19 at 08:15; Stop 06/09/19 at 08:16; Status DC Propofol (Diprivan) 100 mg 1X ONCE IV Last administered on 06/09/19at 07:43; Start 06/09/19 at 08:15; Stop 06/09/19 at 08:16; Status DC Sodium Chloride 1,000 ml @ 1,000 mls/hr 1X ONCE IV Last administered on 06/09/19at 09:02; Start 06/09/19 at 08:45; Stop 06/09/19 at 09:44; Status DC Midazolam HCl (Versed) 5 mg STK-MED ONCE .ROUTE ; Start 06/09/19 at 08:55; Stop 06/09/19 at 08:55; Status DC Propofol 50 ml @ As Directed STK-MED ONCE IV ; Start 06/09/19 at 09:11; Stop 06/09/19 at 09:11; Status DC Acetaminophen (Tylenol) 650 mg Q6H PRN PO Headaches, Temp > 101.5'; Start 06/09/19 at 09:15 Lorazepam (Ativan Inj) 0.5 mg PRN Q6HRS PRN IV ANXIETY / AGITATION; Start 06/09/19 at 09:15 Famotidine (Pepcid Vial) 20 mg BID IVP Last administered on 06/10/19at 09:12; Start 06/09/19 at 10:00 Info (Icu Electrolyte Protocol) 1 ea PRN DAILY PRN MC SEE COMMENTS; Start 06/09/19 at 09:00; Stop 06/10/19 at 17:46; Status DC Heparin Sodium (Porcine) (Heparin Sodium) 5,000 unit Q8HRS SQ Last administered on 06/10/19at 05:49; Start 06/09/19 at 14:00 Sodium Chloride (Normal Saline Flush) 3 ml QSHIFT PRN IV AFTER MEDS AND BLOOD DRAWS; Start 06/09/19 at 09:15 Lactulose (Lactulose) 20 gm PRN Q12HR PRN PO CONSTIPATION-1ST CHOICE; Start 06/09/19 at 09:15 Bisacodyl (Dulcolax Supp) 10 mg PRN DAILY PRN [place] CONSTIPATION; Start 06/09/19 at 09:15 Fentanyl Citrate 30 ml @ 0 mls/hr CONT PRN IV SEE PROTOCOL Last administered on 06/10/19at 04:49; Start 06/09/19 at 09:15; Stop 06/10/19 at 10:07; Status DC Lorazepam (Ativan Inj) 2 mg PRN Q15MIN PRN IV SEVERE WITHDRAWAL; Start 06/09/19 at 09:15; Stop 06/10/19 at 09:14; Status DC Propofol 100 ml @ 0 mls/hr CONT PRN IV SEE PROTOCOL Last administered on 06/10/19at 05:05; Start 06/09/19 at 09:15; Stop 06/10/19 at 10:07; Status DC Fentanyl Citrate (Fentanyl 2ml Vial) 25 mcg PRN Q1HR PRN IV SEE COMMENTS; Start 06/09/19 at 09:15; Stop 06/10/19 at 10:07; Status DC Fentanyl Citrate (Fentanyl 2ml Vial) 50 mcg PRN Q1HR PRN IV SEE COMMENTS Last administered on 06/09/19at 18:12; Start 06/09/19 at 09:15; Stop 06/10/19 at 10:07; Status DC Chlorhexidine Gluconate (Peridex) 15 ml BID MM ; Start 06/09/19 at 21:00; Stop 06/10/19 at 10:07; Status DC Artificial Tears (Artificial Tears) 1 drop PRN Q1HR PRN OU DRY EYE; Start 06/09/19 at 09:15 Morphine Sulfate (Morphine Sulfate) 2 mg PRN Q1HR PRN IV SEE COMMENTS.; Start 06/09/19 at 09:15; Stop 06/10/19 at 10:07; Status DC Morphine Sulfate (Morphine Sulfate) 4 mg PRN Q1HR PRN IV SEE COMMENTS. Last administered on 06/09/19at 11:36; Start 06/09/19 at 09:15; Stop 06/10/19 at 10:07; Status DC Midazolam HCl (Versed) 1 mg PRN Q30MIN PRN IV SEE COMMENTS.; Start 06/09/19 at 09:15; Stop 06/10/19 at 10:07; Status DC Midazolam HCl 50 mg/Sodium Chloride 50 ml @ 0 mls/hr CONT PRN IV SEE PROTOCOL; Start 06/09/19 at 09:15; Stop 06/10/19 at 17:45; Status DC Diphenhydramine HCl (Benadryl) 25 mg PRN Q15MIN PRN IVP EPS Symptoms; Start 06/09/19 at 09:15 Vancomycin HCl 1.75 gm/Sodium Chloride 500 ml @ 250 mls/hr 1X ONCE IV ; Start 06/09/19 at 10:45; Stop 06/09/19 at 12:44; Status UNV Piperacillin Sod/ Tazobactam Sod 3.375 gm/Sodium Chloride 50 ml @ 100 mls/hr Q6HRS IV Last administered on 06/10/19at 05:49; Start 06/09/19 at 12:00; Stop 06/10/19 at 10:09; Status DC Vancomycin HCl 1.5 gm/Sodium Chloride 500 ml @ 250 mls/hr 1X ONCE IV Last administered on 06/09/19at 11:38; Start 06/09/19 at 11:00; Stop 06/10/19 at 10:09; Status DC Vancomycin HCl (Vanco Per Pharmacy) 1 each PRN DAILY PRN MC SEE COMMENTS Last administered on 06/10/19at 07:40; Start 06/09/19 at 11:00; Stop 06/10/19 at 10:10; Status DC Levetiracetam 500 mg/Dextrose 105 ml @ 420 mls/hr Q12HR IV Last administered on 06/10/19at 08:57; Start 06/09/19 at 21:00 Vancomycin HCl 1 gm/Sodium Chloride 250 ml @ 250 mls/hr Q18H IV Last administered on 06/10/19at 06:33; Start 06/10/19 at 06:00; Stop 06/10/19 at 07:33; Status DC Vancomycin HCl (Vancomycin Trough Level) 1 each 1X ONCE MC ; Start 06/11/19 at 05:30; Stop 06/10/19 at 10:13; Status DC Vancomycin HCl 1 gm/Sodium Chloride 250 ml @ 250 mls/hr Q12H IV ; Start 06/10/19 at 18:00; Stop 06/10/19 at 10:09; Status DC Vecuronium [place] (Norcuron Bolus) 10 mg STK-MED ONCE IV ; Start 06/10/19 at 07:43; Stop 06/10/19 at 07:43; Status DC Ondansetron HCl (Zofran) 4 mg PRN Q6HRS PRN IVP NAUSEA/VOMITING; Start 06/10/19 at 10:15 Amoxicillin/ Clavulanate Potassium (Augmentin 875/ 125mg) 1 tab BID PO Last administered on 06/10/19at 11:32; Start 06/10/19 at 12:00 Influenza Virus Vaccine Quadrival (Afluria Quad 2019-20 (3yr Up) Syringe) 0.5 ml ONCE ONCE VAX IM Last administered on 06/10/19at 11:31; Start 06/10/19 at 11:00; Stop 06/10/19 at 11:01; Status DC Info (Non-Icu Electrolyte Protocol) 1 ea CONT PRN PRN MC SEE COMMENTS; Start 06/10/19 at 18:00 Active Scripts Active Reported Sertraline Hcl 50 Mg Tablet 50 Mg PO DAILY Vraylar (Cariprazine Hydrochloride) 4.5 Mg Capsule 1 Cap PO DAILY 30 Days No Known Medications Prior To Admisstion (Info) Each 1 Each MC Vitals/I & O Vital Sign - Last 24 Hours 06/09/19 06/09/19 06/09/19 06/09/19 19:58 20:00 20:30 21:00 Pulse 100 89 Resp 30 29 B/P (MAP) 135/92 (106) 105/67 (80) Pulse Ox 100 99 98 O2 Delivery Ventilator Ventilator Mechanical Ventilator Ventilator 06/09/19 06/09/19 06/09/19 06/09/19 21:30 22:19 23:11 23:36 Pulse 79 86 Resp 24 24 B/P (MAP) 97/62 (74) 111/72 (85) Pulse Ox 98 99 99 100 O2 Delivery Ventilator Ventilator Ventilator Ventilator 06/10/19 06/10/19 06/10/19 06/10/19 00:00 00:00 01:02 02:22 Temp 99.3 99.3 Pulse 92 85 60 Resp 24 24 24 B/P (MAP) 110/77 (88) 96/55 (69) 103/70 (81) Pulse Ox 96 98 100 O2 Delivery Ventilator Mechanical Ventilator Ventilator Ventilator 06/10/19 06/10/19 06/10/19 06/10/19 02:36 03:12 04:14 04:30 Temp 98.3 98.3 Pulse 72 78 Resp 24 24 B/P (MAP) 88/54 (65) 91/57 (68) Pulse Ox 100 100 99 O2 Delivery Ventilator Ventilator Ventilator Mechanical Ventilator 06/10/19 06/10/19 06/10/19 06/10/19 05:07 05:17 05:59 07:00 Pulse 69 72 86 Resp 24 24 24 B/P (MAP) 95/59 (71) 86/52 (63) 94/58 (70) Pulse Ox 97 98 99 100 O2 Delivery Ventilator Ventilator Ventilator Ventilator 06/10/19 06/10/19 06/10/19 06/10/19 07:15 08:00 08:00 08:15 Temp 97.1 97.1 Pulse 54 Resp 24 B/P (MAP) 75/53 (60) Pulse Ox 100 100 O2 Delivery Ventilator Ventilator Mechanical Ventilator Nasal Cannula O2 Flow Rate 3.0 06/10/19 06/10/19 06/10/19 06/10/19 09:00 10:00 11:00 12:00 Temp 97.5 97.5 Pulse 67 67 62 64 Resp 24 14 35 21 B/P (MAP) 115/67 (83) 119/68 (85) 105/55 (72) 128/67 (87) Pulse Ox 99 100 100 100 O2 Delivery Nasal Cannula Nasal Cannula Nasal Cannula Room Air O2 Flow Rate 2.0 2.0 06/10/19 06/10/19 06/10/19 06/10/19 12:00 13:00 14:00 15:00 Pulse 60 64 66 Resp 24 29 37 B/P (MAP) 122/73 (89) 122/73 (89) Pulse Ox 100 100 100 O2 Delivery Room Air Room Air Room Air Room Air 06/10/19 06/10/19 06/10/19 16:00 16:00 17:00 Temp 97.4 98.7 97.4 98.7 Pulse 76 53 Resp 23 23 B/P (MAP) 119/76 (90) 129/93 (105) Pulse Ox 100 99 O2 Delivery Room Air Room Air Room Air Intake and Output 06/09/19 06/09/19 06/10/19 15:00 23:00 07:00 Intake Total 1665 ml 338 ml 720.99 ml Output Total 1465 ml 550 ml 450 ml Balance 200 ml -212 ml 270.99 ml CHRISTINE VARGAS MD Jun 10, 2019 19:50
[2019-06-10] MEDS: levETIRAcetam 500 MG TABLET PO SCH (20:54)
[2019-06-11] MEDS: HEPARIN for SUB-Q USE 5,000 UNIT/ML VIAL. SQ SCH (05:39)
[2019-06-11 08:00] VITALS: BP 130/91
[2019-06-11] MEDS: levETIRAcetam 500 MG TABLET PO SCH (08:13)
[2019-06-11] MEDS: AMOXICILLIN/K CLAV 875/125MG TABLET. PO SCH (08:13)
--- NOTE | 2019-06-11 08:41 | PDOC ---
PROGRESS NOTES History of Present Illness History of Present Illness VTE Prophylaxis Ordered VTE Prophylaxis Devices: No VTE Pharmacological Prophylaxi: Yes DISCHARGE DX Acute Encephalopathy, resolved Seizure activity? High anion gap metabolic acidosis secondary to lactic acidosis Elevated lactate Acute hypercapnic respiratory failure history of alcohol abuse history of polysubstance abuse//overdose of pcp and cocaine 2017 Acute hypercapnic respiratory failure secondary to status epilepticus. trace pleural effusions again seen. No consolidating infiltrate. 06/10 Seizure disorder acute lasting 30 minutes. History of polysubstance abuse. Marked lactic acidosis secondary to seizure and unlikely sepsis. Plan: admit to the icu vent/// extubated 06/10 D/C empiric antibiotics repeat lactic acid propofol for sedation Fentanyl for pain management DVT prophylaxis: heparin once Ct head results available and no evidence of intracranial process reported GI prophylaxis: Pepcid 06/11 WANTS TO GO HOME TODAY, eeg and mri as outpt planned by neurology D/C PLANNING 33 MIN Vitals Vitals Vital Signs Date Time Temp Pulse Resp B/P (MAP) Pulse Ox O2 Delivery O2 Flow Rate FiO2 06/11/19 08:00 98.3 56 20 130/91 (104) 95 Room Air 98.3 06/10/19 23:59 2.0 Physical Exam General: Alert, Oriented X3, Cooperative, No acute distress Heart: Regular rate, Normal S1, Normal S2 Lungs: Clear Abdomen: Normal bowel sounds, Soft, No tenderness Extremities: No cyanosis Skin: No significant lesion Labs LABS ATIENT: ADELITA HENSLEY ACCT: [id number] LOC: [address] [place] [address] U: [id number] AGE/SX: 39/F ROOM: 250 RE06/09/[address]: BETTE TURK MD : 1980 BED: 1 DIS: STATUS: ADM IN TLOC: SPEC #: [id number] ТАТЬЯНА: 06/09/19 STATUS: RES REQ #: [id number] RECD: 06/09/[address] [facility] [address]: RICH JONES DO SOURCE: BLOOD ENTR: 06/09/[address]: KEHINDE BARDALES SPDC: ORDERED: BCULT Procedure Result BLOOD CULTURE Preliminary NO GROWTH AFTER 2 DAYS -- Assessment and Plan Assessmemt and Plan Problems Medical Problems: (1) Acute respiratory failure with hypoxia and hypercapnia Status: Acute (2) Status epilepticus Status: Acute Comment Review of Relevant I have reviewed the following items jass (where applicable) has been applied. Labs Laboratory Tests Test 06/09/19 11:00 06/09/19 11:10 06/09/19 11:06/09/19 17:51 O2 Saturation 92 % (92-99) Arterial Blood pH 7.36 (7.35-7.45) Arterial Blood pCO2 at Patient Temp 34 mmHg (35-46) Arterial Blood pO2 at Patient Temp 65 mmHg (85-108) Arterial Blood HCO3 19 mmol/L (21-28) Arterial Blood Base Excess -6 mmol/L (-3-3) FiO2 50 Lactic Acid Level 3.6 mmol/L (0.4-2.0) Procalcitonin < 0.10 ng/mL (0.00-0.10) Glucose (Fingerstick) 100 mg/dL (70-99) Test 06/09/19 23:57 06/10/19 04:30 06/10/19 07:30 Glucose (Fingerstick) 80 mg/dL (70-99) White Blood Count 13.9 x10^3/uL (4.0-11.0) Red Blood Count 4.34 x10^6/uL (3.50-5.40) Hemoglobin 13.1 g/dL (12.0-15.5) Hematocrit 39.4 % (36.0-47.0) Mean Corpuscular Volume 91 fL (79-100) Mean Corpuscular Hemoglobin 30 pg (25-35) Mean Corpuscular Hemoglobin Concent 33 g/dL (31-37) Red Cell Distribution Width 13.7 % (11.5-14.5) Platelet Count 230 x10^3/uL (140-400) Neutrophils (%) (Auto) 80 % (31-73) Lymphocytes (%) (Auto) 13 % (24-48) Monocytes (%) (Auto) 6 % (0-9) Eosinophils (%) (Auto) 0 % (0-3) Basophils (%) (Auto) 1 % (0-3) Neutrophils # (Auto) 11.1 x10^3/uL (1.8-7.7) Lymphocytes # (Auto) 1.9 x10^3/uL (1.0-4.8) Monocytes # (Auto) 0.9 x10^3/uL (0.0-1.1) Eosinophils # (Auto) 0.0 x10^3/uL (0.0-0.7) Basophils # (Auto) 0.1 x10^3/uL (0.0-0.2) Sodium Level 138 mmol/L (136-145) Potassium Level 3.8 mmol/L (3.5-5.1) Chloride Level 107 mmol/L (98-107) Carbon Dioxide Level 23 mmol/L (21-32) Anion Gap 8 (6-14) Blood Urea Nitrogen 9 mg/dL (7-20) Creatinine 1.0 mg/dL (0.6-1.0) Estimated GFR (Cockcroft-Gault) 75.1 Glucose Level 110 mg/dL (70-99) Calcium Level 8.2 mg/dL (8.5-10.1) O2 Saturation 97 % (92-99) Arterial Blood pH 7.41 (7.35-7.45) Arterial Blood pCO2 at Patient Temp 34 mmHg (35-46) Arterial Blood pO2 at Patient Temp 88 mmHg (85-108) Arterial Blood HCO3 21 mmol/L (21-28) Arterial Blood Base Excess -3 mmol/L (-3-3) FiO2 30 Microbiology 06/09/19 Blood Culture - Preliminary, Resulted NO GROWTH AFTER 1 DAY Medications Current Medications Albuterol Sulfate (Ventolin Neb Soln) 2.5 mg STK-MED ONCE .ROUTE ; Start 06/09/19 at 07:17; Stop 06/09/19 at 07:18; Status DC Albuterol/ Ipratropium (Duoneb) 3 ml STK-MED ONCE .ROUTE ; Start 06/09/19 at 07:17; Stop 06/09/19 at 07:18; Status DC Atropine Sulfate (ATROPINE 0.5mg SYRINGE) 0.5 mg STK-MED ONCE .ROUTE ; Start 06/09/19 at 07:21; Stop 06/09/19 at 07:22; Status DC Levetiracetam 1500 mg/Dextrose 115 ml @ 440 mls/hr 1X ONCE IV Last administered on 06/09/19at 07:53; Start 06/09/19 at 07:45; Stop 06/09/19 at 08:00; Status DC Propofol 0 ml @ As Directed STK-MED ONCE IV ; Start 06/09/19 at 07:41; Stop 06/09/19 at 07:41; Status DC Propofol 100 ml @ 0 mls/hr CONT PRN IV SEE PROTOCOL Last administered on 06/09/19at 07:56; Start 06/09/19 at 08:00; Stop 06/09/19 at 09:38; Status DC Rocuronium Leroy (Zemuron) 50 mg STK-MED ONCE .ROUTE ; Start 06/09/19 at 07:56; Stop 06/09/19 at 07:56; Status DC Atropine Sulfate (ATROPINE 0.5mg SYRINGE) 0.5 mg 1X ONCE IV Last administered on 06/09/19at 07:23; Start 06/09/19 at 08:15; Stop 06/09/19 at 08:16; Status DC Sodium Chloride 1,000 ml @ 1,000 mls/hr 1X ONCE IV Last administered on 06/09/19at 07:51; Start 06/09/19 at 08:15; Stop 06/09/19 at 09:14; Status DC Rocuronium Leroy (Zemuron) 50 mg 1X ONCE IV Last administered on 06/09/19at 07:43; Start 06/09/19 at 08:15; Stop 06/09/19 at 08:16; Status DC Propofol (Diprivan) 100 mg 1X ONCE IV Last administered on 06/09/19at 07:43; Start 06/09/19 at 08:15; Stop 06/09/19 at 08:16; Status DC Sodium Chloride 1,000 ml @ 1,000 mls/hr 1X ONCE IV Last administered on 06/09/19at 09:02; Start 06/09/19 at 08:45; Stop 06/09/19 at 09:44; Status DC Midazolam HCl (Versed) 5 mg STK-MED ONCE .ROUTE ; Start 06/09/19 at 08:55; Stop 06/09/19 at 08:55; Status DC Propofol 50 ml @ As Directed STK-MED ONCE IV ; Start 06/09/19 at 09:11; Stop 06/09/19 at 09:11; Status DC Acetaminophen (Tylenol) 650 mg Q6H PRN PO Headaches, Temp > 101.5' Last administered on 06/11/19at 08:15; Start 06/09/19 at 09:15 Lorazepam (Ativan Inj) 0.5 mg PRN Q6HRS PRN IV ANXIETY / AGITATION; Start 06/09/19 at 09:15 Famotidine (Pepcid Vial) 20 mg BID IVP Last administered on 06/10/19at 20:54; Start 06/09/19 at 10:00; Stop 06/11/19 at 00:30; Status DC Info (Icu Electrolyte Protocol) 1 ea PRN DAILY PRN MC SEE COMMENTS; Start 06/09/19 at 09:00; Stop 06/10/19 at 17:46; Status DC Heparin Sodium (Porcine) (Heparin Sodium) 5,000 unit Q8HRS SQ Last administered on 06/10/19at 05:49; Start 06/09/19 at 14:00 Sodium Chloride (Normal Saline Flush) 3 ml QSHIFT PRN IV AFTER MEDS AND BLOOD DRAWS; Start 06/09/19 at 09:15 Lactulose (Lactulose) 20 gm PRN Q12HR PRN PO CONSTIPATION-1ST CHOICE; Start 06/09/19 at 09:15 Bisacodyl (Dulcolax Supp) 10 mg PRN DAILY PRN HI CONSTIPATION; Start 06/09/19 at 09:15 Fentanyl Citrate 30 ml @ 0 mls/hr CONT PRN IV SEE PROTOCOL Last administered on 06/10/19at 04:49; Start 06/09/19 at 09:15; Stop 06/10/19 at 10:07; Status DC Lorazepam (Ativan Inj) 2 mg PRN Q15MIN PRN IV SEVERE WITHDRAWAL; Start 06/09/19 at 09:15; Stop 06/10/19 at 09:14; Status DC Propofol 100 ml @ 0 mls/hr CONT PRN IV SEE PROTOCOL Last administered on 06/10/19at 05:05; Start 06/09/19 at 09:15; Stop 06/10/19 at 10:07; Status DC Fentanyl Citrate (Fentanyl 2ml Vial) 25 mcg PRN Q1HR PRN IV SEE COMMENTS; Start 06/09/19 at 09:15; Stop 06/10/19 at 10:07; Status DC Fentanyl Citrate (Fentanyl 2ml Vial) 50 mcg PRN Q1HR PRN IV SEE COMMENTS Last administered on 06/09/19at 18:12; Start 06/09/19 at 09:15; Stop 06/10/19 at 10: 07; Status DC Chlorhexidine Gluconate (Peridex) 15 ml BID MM ; Start 06/09/19 at 21:00; Stop 06/10/19 at 10:07; Status DC Artificial Tears (Artificial Tears) 1 drop PRN Q1HR PRN OU DRY EYE; Start 06/09/19 at 09:15 Morphine Sulfate (Morphine Sulfate) 2 mg PRN Q1HR PRN IV SEE COMMENTS.; Start 06/09/19 at 09:15; Stop 06/10/19 at 10:07; Status DC Morphine Sulfate (Morphine Sulfate) 4 mg PRN Q1HR PRN IV SEE COMMENTS. Last administered on 06/09/19at 11:36; Start 06/09/19 at 09:15; Stop 06/10/19 at 10:07; Status DC Midazolam HCl (Versed) 1 mg PRN Q30MIN PRN IV SEE COMMENTS.; Start 06/09/19 at 09:15; Stop 06/10/19 at 10:07; Status DC Midazolam HCl 50 mg/Sodium Chloride 50 ml @ 0 mls/hr CONT PRN IV SEE PROTOCOL; Start 06/09/19 at 09:15; Stop 06/10/19 at 17:45; Status DC Diphenhydramine HCl (Benadryl) 25 mg PRN Q15MIN PRN IVP EPS Symptoms; Start 06/09/19 at 09:15 Vancomycin HCl 1.75 gm/Sodium Chloride 500 ml @ 250 mls/hr 1X ONCE IV ; Start 06/09/19 at 10:45; Stop 06/09/19 at 12:44; Status UNV Piperacillin Sod/ Tazobactam Sod 3.375 gm/Sodium Chloride 50 ml @ 100 mls/hr Q6HRS IV Last administered on 06/10/19at 05:49; Start 06/09/19 at 12:00; Stop 06/10/19 at 10:09; Status DC Vancomycin HCl 1.5 gm/Sodium Chloride 500 ml @ 250 mls/hr 1X ONCE IV Last administered on 06/09/19at 11:38; Start 06/09/19 at 11:00; Stop 06/10/19 at 10:09; Status DC Vancomycin HCl (Vanco Per Pharmacy) 1 each PRN DAILY PRN MC SEE COMMENTS Last administered on 06/10/19at 07:40; Start 06/09/19 at 11:00; Stop 06/10/19 at 10:10; Status DC Levetiracetam 500 mg/Dextrose 105 ml @ 420 mls/hr Q12HR IV Last administered on 06/10/19at 08:57; Start 06/09/19 at 21:00; Stop 06/10/19 at 19:48; Status DC Vancomycin HCl 1 gm/Sodium Chloride 250 ml @ 250 mls/hr Q18H IV Last administered on 06/10/19at 06:33; Start 06/10/19 at 06:00; Stop 06/10/19 at 07:33; Status DC Vancomycin HCl (Vancomycin Trough Level) 1 each 1X ONCE MC ; Start 06/11/19 at 05:30; Stop 06/10/19 at 10:13; Status DC Vancomycin HCl 1 gm/Sodium Chloride 250 ml @ 250 mls/hr Q12H IV ; Start 06/10/19 at 18:00; Stop 06/10/19 at 10:09; Status DC Vecuronium Leroy (Norcuron Bolus) 10 mg STK-MED ONCE IV ; Start 06/10/19 at 07:43; Stop 06/10/19 at 07:43; Status DC Ondansetron HCl (Zofran) 4 mg PRN Q6HRS PRN IVP NAUSEA/VOMITING; Start 06/10/19 at 10:15 Amoxicillin/ Clavulanate Potassium (Augmentin 875/ 125mg) 1 tab BID PO Last administered on 06/11/19at 08:13; Start 06/10/19 at 12:00 Influenza Virus Vaccine Quadrival (Afluria Quad 2019-20 (3yr Up) Syringe) 0.5 ml ONCE ONCE VAX IM Last administered on 06/10/19at 11:31; Start 06/10/19 at 11:00; Stop 06/10/19 at 11:01; Status DC Info (Non-Icu Electrolyte Protocol) 1 ea CONT PRN PRN MC SEE COMMENTS; Start 06/10/19 at 18:00 Levetiracetam (Keppra) 500 mg BID PO Last administered on 06/11/19at 08:13; Start 06/10/19 at 21:00 Famotidine (Pepcid) 20 mg BID PO Last administered on 06/11/19at 08:13; Start 06/11/19 at 09:00 Lactobacillus Rhamnosus (Culturelle) 1 cap BID PO Last administered on 06/11/19at 08:15; Start 06/11/19 at 09:00 Active Scripts Active Reported Sertraline Hcl 50 Mg Tablet 50 Mg PO DAILY Vraylar (Cariprazine Hydrochloride) 4.5 Mg Capsule 1 Cap PO DAILY 30 Days No Known Medications Prior To Admisstion (Info) Each 1 Each Vitals/I & O Vital Sign - Last 24 Hours 06/10/19 06/10/19 06/10/19 06/10/19 09:00 10:00 11:00 12:00 Temp 97.5 97.5 Pulse 67 67 62 64 Resp 24 14 35 21 B/P (MAP) 115/67 (83) 119/68 (85) 105/55 (72) 128/67 (87) Pulse Ox 99 100 100 100 O2 Delivery Nasal Cannula Nasal Cannula Nasal Cannula Room Air O2 Flow Rate 2.0 2.0 06/10/19 06/10/19 06/10/19 06/10/19 12:00 13:00 14:00 15:00 Pulse 60 64 66 Resp 24 29 37 B/P (MAP) 122/73 (89) 122/73 (89) Pulse Ox 100 100 100 O2 Delivery Room Air Room Air Room Air Room Air 06/10/19 06/10/19 06/10/19 06/10/19 16:00 16:00 17:00 19:51 Temp 97.4 98.7 98.4 97.4 98.7 98.4 Pulse 76 53 62 Resp 23 23 20 B/P (MAP) 119/76 (90) 129/93 (105) 118/61 (80) Pulse Ox 100 99 98 O2 Delivery Room Air Room Air Room Air Room Air 06/10/19 06/10/19 06/10/19 06/11/19 20:00 23:19 23:59 08:00 Temp 98.3 98.3 98.3 98.3 Pulse 57 56 Resp 20 20 B/P (MAP) 159/80 (106) 130/91 (104) Pulse Ox 99 95 O2 Delivery Room Air Room Air Room Air Room Air O2 Flow Rate 2.0 2.0 Intake and Output 06/10/19 06/10/19 06/11/19 15:00 23:00 07:00 Intake Total 114.5 ml Output Total 71 ml Balance 43.5 ml FRANCISCO NUGENT MD Jun 11, 2019 08:41
--- NOTE | 2019-06-11 08:45 | RAD ---
PORTABLE CHEST 1V 06/11/2019 9:00 AM INDICATION: Shortness of breath COMPARISON: 06/10/2019 TECHNIQUE: Portable frontal view of the chest is provided. FINDINGS: The cardiomediastinal silhouette is similar in appearance. Similar trace left pleural effusion versus pleural thickening. There is no pulmonary vascular congestion. No pneumothorax. IMPRESSION: Interval extubation and removal of nasogastric tube. Similar aeration of lungs compared to prior examination. Electronically signed by: Esther Bryant MD (06/11/2019 8:42 AM) [id number]
[2019-06-11] MEDS ORDERED: LACTOBACILLUS RHAMNOSUS GG 1 CAPSULE. PO SCH (09:00)
[2019-06-11] MEDS ORDERED: FAMOTIDINE 20 MG TABLET. PO SCH (09:00)
--- NOTE | 2019-06-11 09:15 | PDOC3 ---
Discharge Summary Date of Admission: Jun 09, 2019 Date of Discharge: Jun 11, 2019 Follow-Up: 3-5 days Admitting Diagnosis comment: DISCHARGE DX Acute Encephalopathy, resolved Seizure activity? High anion gap metabolic acidosis secondary to lactic acidosis Elevated lactate Acute hypercapnic respiratory failure history of alcohol abuse history of polysubstance abuse//overdose of pcp and cocaine 2017 Acute hypercapnic respiratory failure secondary to status epilepticus. trace pleural effusions again seen. No consolidating infiltrate. 06/10 Seizure disorder acute lasting 30 minutes. History of polysubstance abuse. Marked lactic acidosis secondary to seizure and unlikely sepsis. Plan: D/C TODAY vent/// extubated 06/10 D/C empiric antibiotics repeat lactic acid propofol for sedation Fentanyl for pain management DVT prophylaxis: heparin once Ct head results available and no evidence of intracranial process reported GI prophylaxis: Pepcid 06/11 WANTS TO GO HOME TODAY, eeg and mri as outpt planned by neurology D/C PLANNING 33 MIN Vitals Vitals Vital Signs ROOM AIR Date Time Temp Pulse Resp B/P (MAP) Pulse Ox O2 Delivery O2 Flow Rate FiO2 06/11/19 08:00 98.3 56 20 130/91 (104) 95 Room Air 98.3 06/10/19 23:59 2.0 Physical Exam General: Alert, Oriented X3, Cooperative, No acute distress Heart: Regular rate, Normal S1, Normal S2 Lungs: Clear Abdomen: Normal bowel sounds, Soft, No tenderness Extremities: No cyanosis Skin: No significant lesion Labs LABS ATIENT: ADELITA HENSLEY ACCT: [id number] LOC: [address] [place] [address] U: [id number] AGE/SX: 39/F ROOM: 250 RE06/09/[address]: BETTE TURK MD : 1980 BED: 1 DIS: STATUS: ADM IN TLOC: SPEC #: [id number] ТАТЬЯНА: 06/09/19 STATUS: RES REQ #: [id number] RECD: 06/09/[address] [facility] [address]: RICH JONES DO SOURCE: BLOOD ENTR: 06/09/19 [facility] DR: KEHINDE BARDALES SPDC: ORDERED: BCULT Procedure Result BLOOD CULTURE Preliminary NO GROWTH AFTER 2 DAYS FINAL DIAGNOSIS Problems Medical Problems: (1) Acute respiratory failure with hypoxia and hypercapnia Status: Acute (2) Status epilepticus Status: Acute Brief Hospital Course Ms. Hensley is a 39 old [sex] who presented with [SEIZURE ] CONDITION AT DISCHARGE: Improved Discharge Medications Current Medications Albuterol Sulfate (Ventolin Neb Soln) 2.5 mg STK-MED ONCE .ROUTE ; Start 06/09/19 at 07:17; Stop 06/09/19 at 07:18; Status DC Albuterol/ Ipratropium (Duoneb) 3 ml STK-MED ONCE .ROUTE ; Start 06/09/19 at 07:17; Stop 06/09/19 at 07:18; Status DC Atropine Sulfate (ATROPINE 0.5mg SYRINGE) 0.5 mg STK-MED ONCE .ROUTE ; Start 06/09/19 at 07:21; Stop 06/09/19 at 07:22; Status DC Levetiracetam 1500 mg/Dextrose 115 ml @ 440 mls/hr 1X ONCE IV Last administered on 06/09/19at 07:53; Start 06/09/19 at 07:45; Stop 06/09/19 at 08:00; Status DC Propofol 0 ml @ As Directed STK-MED ONCE IV ; Start 06/09/19 at 07:41; Stop 06/09/19 at 07:41; Status DC Propofol 100 ml @ 0 mls/hr CONT PRN IV SEE PROTOCOL Last administered on 06/09/19at 07:56; Start 06/09/19 at 08:00; Stop 06/09/19 at 09:38; Status DC Rocuronium [place] (Zemuron) 50 mg STK-MED ONCE .ROUTE ; Start 06/09/19 at 07:56; Stop 06/09/19 at 07:56; Status DC Atropine Sulfate (ATROPINE 0.5mg SYRINGE) 0.5 mg 1X ONCE IV Last administered on 06/09/19at 07:23; Start 06/09/19 at 08:15; Stop 06/09/19 at 08:16; Status DC Sodium Chloride 1,000 ml @ 1,000 mls/hr 1X ONCE IV Last administered on 06/09/19at 07:51; Start 06/09/19 at 08:15; Stop 06/09/19 at 09:14; Status DC Rocuronium [place] (Zemuron) 50 mg 1X ONCE IV Last administered on 06/09/19at 07:43; Start 06/09/19 at 08:15; Stop 06/09/19 at 08:16; Status DC Propofol (Diprivan) 100 mg 1X ONCE IV Last administered on 06/09/19at 07:43; Start 06/09/19 at 08:15; Stop 06/09/19 at 08:16; Status DC Sodium Chloride 1,000 ml @ 1,000 mls/hr 1X ONCE IV Last administered on at 09:02; Start 06/09/19 at 08:45; Stop 06/09/19 at 09:44; Status DC Midazolam HCl (Versed) 5 mg STK-MED ONCE .ROUTE ; Start 06/09/19 at 08:55; Stop 06/09/19 at 08:55; Status DC Propofol 50 ml @ As Directed STK-MED ONCE IV ; Start 06/09/19 at 09:11; Stop 06/09/19 at 09:11; Status DC Acetaminophen (Tylenol) 650 mg Q6H PRN PO Headaches, Temp > 101.5' Last administered on 06/11/19at 08:15; Start 06/09/19 at 09:15 Lorazepam (Ativan Inj) 0.5 mg PRN Q6HRS PRN IV ANXIETY / AGITATION; Start 06/09/19 at 09:15 Famotidine (Pepcid Vial) 20 mg BID IVP Last administered on 06/10/19at 20:54; Start 06/09/19 at 10:00; Stop 06/11/19 at 00:30; Status DC Info (Icu Electrolyte Protocol) 1 ea PRN DAILY PRN MC SEE COMMENTS; Start 06/09/19 at 09:00; Stop 06/10/19 at 17:46; Status DC Heparin Sodium (Porcine) (Heparin Sodium) 5,000 unit Q8HRS SQ Last administered on 06/10/19at 05:49; Start 06/09/19 at 14:00 Sodium Chloride (Normal Saline Flush) 3 ml QSHIFT PRN IV AFTER MEDS AND BLOOD DRAWS; Start 06/09/19 at 09:15 Lactulose (Lactulose) 20 gm PRN Q12HR PRN PO CONSTIPATION-1ST CHOICE; Start 06/09/19 at 09:15 Bisacodyl (Dulcolax Supp) 10 mg PRN DAILY PRN [place] CONSTIPATION; Start 06/09/19 at 09:15 Fentanyl Citrate 30 ml @ 0 mls/hr CONT PRN IV SEE PROTOCOL Last administered on 06/10/19at 04:49; Start 06/09/19 at 09:15; Stop 06/10/19 at 10:07; Status DC Lorazepam (Ativan Inj) 2 mg PRN Q15MIN PRN IV SEVERE WITHDRAWAL; Start 06/09/19 at 09:15; Stop 06/10/19 at 09:14; Status DC Propofol 100 ml @ 0 mls/hr CONT PRN IV SEE PROTOCOL Last administered on 06/10/19at 05:05; Start 06/09/19 at 09:15; Stop 06/10/19 at 10:07; Status DC Fentanyl Citrate (Fentanyl 2ml Vial) 25 mcg PRN Q1HR PRN IV SEE COMMENTS; Start 06/09/19 at 09:15; Stop 06/10/19 at 10:07; Status DC Fentanyl Citrate (Fentanyl 2ml Vial) 50 mcg PRN Q1HR PRN IV SEE COMMENTS Last administered on 06/09/19at 18:12; Start 06/09/19 at 09:15; Stop 06/10/19 at 10:07; Status DC Chlorhexidine Gluconate (Peridex) 15 ml BID MM ; Start 06/09/19 at 21:00; Stop 06/10/19 at 10:07; Status DC Artificial Tears (Artificial Tears) 1 drop PRN Q1HR PRN OU DRY EYE; Start 06/09/19 at 09:15 Morphine Sulfate (Morphine Sulfate) 2 mg PRN Q1HR PRN IV SEE COMMENTS.; Start 06/09/19 at 09:15; Stop 06/10/19 at 10:07; Status DC Morphine Sulfate (Morphine Sulfate) 4 mg PRN Q1HR PRN IV SEE COMMENTS. Last administered on 06/09/19at 11:36; Start 06/09/19 at 09:15; Stop 06/10/19 at 10 :07; Status DC Midazolam HCl (Versed) 1 mg PRN Q30MIN PRN IV SEE COMMENTS.; Start 06/09/19 at 09:15; Stop 06/10/19 at 10:07; Status DC Midazolam HCl 50 mg/Sodium Chloride 50 ml @ 0 mls/hr CONT PRN IV SEE PROTOCOL; Start 06/09/19 at 09:15; Stop 06/10/19 at 17:45; Status DC Diphenhydramine HCl (Benadryl) 25 mg PRN Q15MIN PRN IVP EPS Symptoms; Start 06/09/19 at 09:15 Vancomycin HCl 1.75 gm/Sodium Chloride 500 ml @ 250 mls/hr 1X ONCE IV ; Start 06/09/19 at 10:45; Stop 06/09/19 at 12:44; Status UNV Piperacillin Sod/ Tazobactam Sod 3.375 gm/Sodium Chloride 50 ml @ 100 mls/hr Q6HRS IV Last administered on 06/10/19at 05:49; Start 06/09/19 at 12:00; Stop 06/10/19 at 10:09; Status DC Vancomycin HCl 1.5 gm/Sodium Chloride 500 ml @ 250 mls/hr 1X ONCE IV Last administered on 06/09/19at 11:38; Start 06/09/19 at 11:00; Stop 06/10/19 at 10:09; Status DC Vancomycin HCl (Vanco Per Pharmacy) 1 each PRN DAILY PRN MC SEE COMMENTS Last administered on 06/10/19at 07:40; Start 06/09/19 at 11:00; Stop 06/10/19 at 10:10; Status DC Levetiracetam 500 mg/Dextrose 105 ml @ 420 mls/hr Q12HR IV Last administered on 06/10/19at 08:57; Start 06/09/19 at 21:00; Stop 06/10/19 at 19:48; Status DC Vancomycin HCl 1 gm/Sodium Chloride 250 ml @ 250 mls/hr Q18H IV Last administered on 06/10/19at 06:33; Start 06/10/19 at 06:00; Stop 06/10/19 at 07:33; Status DC Vancomycin HCl (Vancomycin Trough Level) 1 each 1X ONCE MC ; Start 06/11/19 at 05:30; Stop 06/10/19 at 10:13; Status DC Vancomycin HCl 1 gm/Sodium Chloride 250 ml @ 250 mls/hr Q12H IV ; Start 06/10/19 at 18:00; Stop 06/10/19 at 10:09; Status DC Vecuronium [place] (Norcuron Bolus) 10 mg STK-MED ONCE IV ; Start 06/10/19 at 07:43; Stop 06/10/19 at 07:43; Status DC Ondansetron HCl (Zofran) 4 mg PRN Q6HRS PRN IVP NAUSEA/VOMITING; Start 06/10/19 at 10:15 Amoxicillin/ Clavulanate Potassium (Augmentin 875/ 125mg) 1 tab BID PO Last administered on 06/11/19at 08:13; Start 06/10/19 at 12:00 Influenza Virus Vaccine Quadrival (Afluria Quad 2019-20 (3yr Up) Syringe) 0.5 ml ONCE ONCE VAX IM Last administered on 06/10/19at 11:31; Start 06/10/19 at 11:00; Stop 06/10/19 at 11:01; Status DC Info (Non-Icu Electrolyte Protocol) 1 ea CONT PRN PRN MC SEE COMMENTS; Start 06/10/19 at 18:00 Levetiracetam (Keppra) 500 mg BID PO Last administered on 06/11/19at 08:13; Start 06/10/19 at 21:00 Famotidine (Pepcid) 20 mg BID PO Last administered on 06/11/19at 08:13; Start 06/11/19 at 09:00 Lactobacillus Rhamnosus (Culturelle) 1 cap BID PO Last administered on 06/11/19at 08:15; Start 06/11/19 at 09:00 Active Scripts Active Reported Sertraline Hcl 50 Mg Tablet 50 Mg PO DAILY Vraylar (Cariprazine Hydrochloride) 4.5 Mg Capsule 1 Cap PO DAILY 30 Days No Known Medications Prior To Admisstion (Info) Each 1 Each Vital Signs Vital Signs Date Time Temp Pulse Resp B/P (MAP) Pulse Ox O2 Delivery O2 Flow Rate FiO2 06/11/19 08:00 98.3 56 20 130/91 (104) 95 Room Air 98.3 06/10/19 23:59 2.0 Labs Laboratory Tests Test 06/09/19 11:00 06/09/19 11:10 06/09/19 11:20 06/09/19 17:51 O2 Saturation 92 % (92-99) Arterial Blood pH 7.36 (7.35-7.45) Arterial Blood pCO2 at Patient Temp 34 mmHg (35-46) Arterial Blood pO2 at Patient Temp 65 mmHg (85-108) Arterial Blood HCO3 19 mmol/L (21-28) Arterial Blood Base Excess -6 mmol/L (-3-3) FiO2 50 Lactic Acid Level 3.6 mmol/L (0.4-2.0) Procalcitonin < 0.10 ng/mL (0.00-0.10) Glucose (Fingerstick) 100 mg/dL (70-99) Test 06/09/19 23:57 06/10/19 04:30 06/10/19 07:30 Glucose (Fingerstick) 80 mg/dL (70-99) White Blood Count 13.9 x10^3/uL (4.0-11.0) Red Blood Count 4.34 x10^6/uL (3.50-5.40) Hemoglobin 13.1 g/dL (12.0-15.5) Hematocrit 39.4 % (36.0-47.0) Mean Corpuscular Volume 91 fL (79-100) Mean Corpuscular Hemoglobin 30 pg (25-35) Mean Corpuscular Hemoglobin Concent 33 g/dL (31-37) Red Cell Distribution Width 13.7 % (11.5-14.5) Platelet Count 230 x10^3/uL (140-400) Neutrophils (%) (Auto) 80 % (31-73) Lymphocytes (%) (Auto) 13 % (24-48) Monocytes (%) (Auto) 6 % (0-9) Eosinophils (%) (Auto) 0 % (0-3) Basophils (%) (Auto) 1 % (0-3) Neutrophils # (Auto) 11.1 x10^3/uL (1.8-7.7) Lymphocytes # (Auto) 1.9 x10^3/uL (1.0-4.8) Monocytes # (Auto) 0.9 x10^3/uL (0.0-1.1) Eosinophils # (Auto) 0.0 x10^3/uL (0.0-0.7) Basophils # (Auto) 0.1 x10^3/uL (0.0-0.2) Sodium Level 138 mmol/L (136-145) Potassium Level 3.8 mmol/L (3.5-5.1) Chloride Level 107 mmol/L (98-107) Carbon Dioxide Level 23 mmol/L (21-32) Anion Gap 8 (6-14) Blood Urea Nitrogen 9 mg/dL (7-20) Creatinine 1.0 mg/dL (0.6-1.0) Estimated GFR (Cockcroft-Gault) 75.1 Glucose Level 110 mg/dL (70-99) Calcium Level 8.2 mg/dL (8.5-10.1) O2 Saturation 97 % (92-99) Arterial Blood pH 7.41 (7.35-7.45) Arterial Blood pCO2 at Patient Temp 34 mmHg (35-46) Arterial Blood pO2 at Patient Temp 88 mmHg (85-108) Arterial Blood HCO3 21 mmol/L (21-28) Arterial Blood Base Excess -3 mmol/L (-3-3) FiO2 30 Allergies Allergies Coded Allergies Type Severity Reaction Last Updated Verified No Known Drug Allergies 06/09/13 No Disposition/Orders: D/C to Home FRANCISCO NUGENT MD Jun 11, 2019 09:15
[2019-06-11] MEDS ORDERED: FAMO20TA5 PO (09:17)
[2019-06-11] MEDS ORDERED: LEVE500T56 PO (09:17)
[2019-06-11] MEDS ORDERED: LACT1CAP19 PO (09:17)
[2019-06-11] MEDS ORDERED: AMOX1TAB11 PO (09:17)
[2019-06-11] MEDS ORDERED: ACET325T9 PO (09:17)
--- NOTE | 2019-06-11 09:18 | DISCH ---
DISCHARGE INSTRUCTIONS Condition on Discharge Condition on Discharge: Stable Activity After Discharge Activity Instructions for Disc: Activity as tolerated Lifting Instructions after Dis: No heavy lifting, No pulling or pushing Driving Instructions after Dis: Do not drive Weight Bearing Status after Di: As tolerated Diet after Discharge Diet after Discharge: Regular Diet Texture: Regular Liquid Texture: Thin Liquid Swallowing Supervision: None needed Wound Incision Care Wound/Incision Care: No wound care needed Checks after Discharge Checks after discharge: Check blood press - daily, Check blood sugar, ac/hs Contacting the DR. after DC Call your doctor for: If your condition worsens Treatment/Equipment after DC Adaptive Equipment Issued: None FRANCISCO NUGENT MD Jun 11, 2019 09:18
--- NOTE | 2019-06-11 10:46 | PDOC ---
PULMONARY PROGRESS NOTES Subjective Extubated 06/10/2019/ was very agitated on vent despite sedation.we did extubated her Feeling much better, off O2 no overnight seizure activity Vitals Vital Signs Date Time Temp Pulse Resp B/P (MAP) Pulse Ox O2 Delivery O2 Flow Rate FiO2 06/11/19 08:00 98.3 56 20 130/91 (104) 95 Room Air 98.3 06/10/19 23:59 2.0 ROS: No Chest Pain, No Abdominal Pain, No Increase Cough General: Alert, Oriented X4 Lungs: Clear Cardiovascular: S1, S2 Abdomen: Soft, Non-tender Neuro Exam: Alert Extremities: No Edema Skin: Warm, Dry Labs Laboratory Tests Test 06/09/19 11:00 06/09/19 11:10 06/09/19 11:20 06/09/19 17:51 O2 Saturation 92 % (92-99) Arterial Blood pH 7.36 (7.35-7.45) Arterial Blood pCO2 at Patient Temp 34 mmHg (35-46) Arterial Blood pO2 at Patient Temp 65 mmHg (85-108) Arterial Blood HCO3 19 mmol/L (21-28) Arterial Blood Base Excess -6 mmol/L (-3-3) FiO2 50 Lactic Acid Level 3.6 mmol/L (0.4-2.0) Procalcitonin < 0.10 ng/mL (0.00-0.10) Glucose (Fingerstick) 100 mg/dL (70-99) Test 06/09/19 23:57 06/10/19 04:30 06/10/19 07:30 Glucose (Fingerstick) 80 mg/dL (70-99) White Blood Count 13.9 x10^3/uL (4.0-11.0) Red Blood Count 4.34 x10^6/uL (3.50-5.40) Hemoglobin 13.1 g/dL (12.0-15.5) Hematocrit 39.4 % (36.0-47.0) Mean Corpuscular Volume 91 fL (79-100) Mean Corpuscular Hemoglobin 30 pg (25-35) Mean Corpuscular Hemoglobin Concent 33 g/dL (31-37) Red Cell Distribution Width 13.7 % (11.5-14.5) Platelet Count 230 x10^3/uL (140-400) Neutrophils (%) (Auto) 80 % (31-73) Lymphocytes (%) (Auto) 13 % (24-48) Monocytes (%) (Auto) 6 % (0-9) Eosinophils (%) (Auto) 0 % (0-3) Basophils (%) (Auto) 1 % (0-3) Neutrophils # (Auto) 11.1 x10^3/uL (1.8-7.7) Lymphocytes # (Auto) 1.9 x10^3/uL (1.0-4.8) Monocytes # (Auto) 0.9 x10^3/uL (0.0-1.1) Eosinophils # (Auto) 0.0 x10^3/uL (0.0-0.7) Basophils # (Auto) 0.1 x10^3/uL (0.0-0.2) Sodium Level 138 mmol/L (136-145) Potassium Level 3.8 mmol/L (3.5-5.1) Chloride Level 107 mmol/L (98-107) Carbon Dioxide Level 23 mmol/L (21-32) Anion Gap 8 (6-14) Blood Urea Nitrogen 9 mg/dL (7-20) Creatinine 1.0 mg/dL (0.6-1.0) Estimated GFR (Cockcroft-Gault) 75.1 Glucose Level 110 mg/dL (70-99) Calcium Level 8.2 mg/dL (8.5-10.1) O2 Saturation 97 % (92-99) Arterial Blood pH 7.41 (7.35-7.45) Arterial Blood pCO2 at Patient Temp 34 mmHg (35-46) Arterial Blood pO2 at Patient Temp 88 mmHg (85-108) Arterial Blood HCO3 21 mmol/L (21-28) Arterial Blood Base Excess -3 mmol/L (-3-3) FiO2 30 Medications Active Scripts Medications Dose Route/Sig Max Daily Dose Days Date Category Sertraline Hcl 50 Mg Tablet 50 Mg PO DAILY 06/09/19 Reported Vraylar (Cariprazine Hydrochloride) 4.5 Mg Capsule 1 Cap PO DAILY 30 06/09/19 Reported Keflex (Cephalexin) 500 Mg Capsule 1 Cap PO TID 04/29/18 Rx Cephalexin 500 Mg Capsule 1 Cap PO QID 10 04/21/18 Rx No Known Medications Prior To Admisstion (Info) Each 1 Each 06/09/13 Reported Impression . IMPRESSION: 1. Acute hypercapnic respiratory failure secondary to status epilepticus. extubated 06/10 2. Seizure disorder acute lasting 30 minutes. 3. History of polysubstance abuse. 4. Marked lactic acidosis secondary to seizure and unlikely sepsis. 5. Urine drug screen positive for benzos. 6. Mild reactive leukocytosis. CXR 06/10/19 IMPRESSION: Possible trace pleural effusions again seen. No consolidating infiltrate. Plan . 1. S/P extubated 06/10/2019 ---on RA 2. po Augmentin 3. Follow Neurology recommendations. 4. DVT prophylaxis 5. reviewed CXR 6. ok to advance diet Discussed with RN pb with [facility] TERRIE WADDELL MD Jun 11, 2019 10:46
--- NOTE | 2019-06-13 14:54 | EEG ---
DATE OF SERVICE: 06/09/2019 ELECTROENCEPHALOGRAM REPORT EEG NUMBER: 11. OBJECTIVE: The patient is a 39-year-old female with multiple seizures. DESCRIPTION: This is a digital study. Electrodes are placed according to international 10-20 system. Bipolar and referential montages are available. Activation procedures typically include hyperventilation and intermittent photic stimulation. INTERPRETATION: The waking background consists of 9-10 Hz, 50-100 microvolt activity, symmetrically distributed over parietooccipital regions and reactive to eye opening. Hyperventilation and intermittent photic stimulation are noncontributory. Sleep is not achieved. IMPRESSION: This electroencephalogram with the patient awake only is within normal limits. There is no focal, paroxysmal, or epileptiform activity. Thank you for letting us help with the patient's care. CHRISTINE VARGAS MD DR: EDUARDO/nirav JOB#: [id number] / [id number]
== END 2019-06-11 12:09 | disposition home or self-care (01) | DRG 208 ==
LOC: ER 07:12 → 1 WEST ICU 08:00 → 2 SOUTH 06-10 17:00
PROVIDERS: ADMIT Internal Medicine; ATTEND Internal Medicine
PROC: 5A1935Z Respiratory Ventilation, Less than 24 Consecutive Hours (ICD-10-PCS; principal; 2019-06-09)
PROC: 0BH17EZ Insertion of Endotracheal Airway into Trachea, Via Natural or Artificial Opening (ICD-10-PCS; 2019-06-09)
DX: J96.01 Acute respiratory failure with hypoxia (principal); G93.40 Encephalopathy, unspecified; G40.901 Epilepsy, unspecified, not intractable, with status epilepticus; J96.02 Acute respiratory failure with hypercapnia; D72.828 Other elevated white blood cell count; F31.9 Bipolar disorder, unspecified; Z86.19 Personal history of other infectious and parasitic diseases; F19.10 Other psychoactive substance abuse, uncomplicated; F10.10 Alcohol abuse, uncomplicated
CPT/HCPCS: 36415; 36600; 70450; 71045; 74018; 80048; 80053; 80307; 80329; 81001; 81025; 82550; 82805; 82962; 83605; 84145; 84443; 84703; 85025; 87040; 90471; 90686; 93005; 94002; 94003; 95816; G0480; J0461; J1644; J1953; J2270; J2543; J2704; J3010; J3370; J3490; J7030; J7040; J7050; G0378

== ENCOUNTER 2020-01-21 22:55 | Emergency (ER) | payer SELFPAY ==
[~2020-01-21] VITALS: Ht 175.3 cm; Wt 60.0 kg
[~2020-01-21 22:55] MED LIST changes: +ACET325T9 PO; +AMOX1TAB11 PO; +CARI4.5C PO; +FAMO20TA5 PO; +LACT1CAP19 PO; +LEVE500T56 PO; +SERT50TA8 PO
[2020-01-21 23:06] VITALS: BP 146/86
--- NOTE | 2020-01-21 23:32 | PHYS DOC ---
Past Medical History Past Medical History: Bipolar, Hepatitis, Other Additional Past Medical Histor: syphilis, drug abuse,HEPATITIS C Past Surgical History: Other Additional Past Surgical Histo: right thigh Smoking Status: Current Every Day Smoker Alcohol Use: Occasionally Drug Use: Marijuana, Phencyclidine General Adult EDM: Chief Complaint: FOREIGNBODY EAR HPI: HPI: Patient is a 39-year-old female who presents to the emergency room complaining of a Q-tip in her right ear. She has been trying to get out without any success. She states that it is very irritating. She denies any other injuries. Review of Systems: Review of Systems: General: Denies fever, chills, sweats, fatigue Eyes: Denies drainage, blurred vision, eye redness HENT: Denies rhinorrhea, sore throat, earache Respiratory: Denies cough, shortness of breath, wheezing Cardiac: Denies edema, palpitations, chest pain GI: Denies abdominal pain, Nausea, vomiting MSK: Denies back pain, neck pain Skin: Denies rash, jaundice Neuro: Denies headache, dizziness Psychiatric: Denies SI/HI Heart Score: Risk Factors: Risk Factors: DM, Current or recent (<one month) smoker, HTN, HLP, family history of CAD, obesity. Risk Scores: Score 0 - 3: 2.5% MACE over next 6 weeks - Discharge Home Score 4 - 6: 20.3% MACE over next 6 weeks - Admit for Clinical Observation Score 7 - 10: 72.7% MACE over next 6 weeks - Early Invasive Strategies Allergies: Allergies: Allergies Coded Allergies Type Severity Reaction Last Updated Verified No Known Drug Allergies 06/09/13 No Physical Exam: PE: General: Awake, alert, NAD. Well Nourished, well hydrated. Cooperative HEENT: Atraumatic, EOMI, PERRL, airway patent, moist oral mucosa, cotton in ear, small scrapes to ear canal Neck: Supple, trachea midline Respiratory: CTA bilaterally, normal effort, no wheezing/crackles CV: RRR, no murmur, cap refill <2 GI: Soft, nondistended, nontender, no masses MSK: No obvious deformities Skin: Warm, dry, intact Neuro: A&O x3, speech NL, sensory and motor grossly intact, no focal deficits Psych: Normal affect, normal mood, not suicidal or homicidal Current Patient Data: Vital Signs: Vital Signs Date Time Temp Pulse Resp B/P (MAP) Pulse Ox O2 Delivery O2 Flow Rate FiO2 01/21/20 23:06 98.9 88 20 146/86 (106) 96 Room Air 98.9 EKG: EKG: [] Radiology/Procedures: Radiology/Procedures: [] Course & Med Decision Making: Course & Med Decision Making Pertinent Labs and Imaging studies reviewed. (See chart for details) Patient is a 39-year-old female who presents to the emergency room with a foreign object in her ear. Cotton was removed. She is small scrapes but no signs of perforation of the eardrum. Patient's test results and vitals while in the ED were fully reviewed and discussed with the patient. Patient is stable and at this time does not need admission to the hospital. We have discussed strict return precautions and the importance of following up with their Primary Care Physician. Patient stated understanding and was given an opportunity to ask any questions. Patient is in agreement with plan. Dragon Disclaimer: Dragon Disclaimer: This electronic medical record was generated, in whole or in part, using a voice recognition dictation system. Departure Departure Impression: Primary Impression: Foreign body in ear Additional Impression: Ear canal abrasion Disposition: HOME, SELF-CARE Condition: STABLE Referrals: NO PCP (PCP) Patient Instructions: Ear Foreign Body, [id number] Justicifation of Admission Dx: Justifications for Admission: Justification of Admission Dx: N/A STORMY RECINOS MD Jan 21, 2020 23:32
== END 2020-01-21 23:36 | disposition home or self-care (01) ==
LOC: ER 22:55
DX: T16.1XXA Foreign body in right ear, initial encounter (principal); F31.9 Bipolar disorder, unspecified; K73.9 Chronic hepatitis, unspecified; F17.200 Nicotine dependence, unspecified, uncomplicated; F12.90 Cannabis use, unspecified, uncomplicated; F19.90 Other psychoactive substance use, unspecified, uncomplicated; Z98.890 Other specified postprocedural states; W45.8XXA Other foreign body or object entering through skin, initial encounter; Y93.89 Activity, other specified; Y92.89 Other specified places as the place of occurrence of the external cause; Y99.8 Other external cause status
CPT/HCPCS: 99284

== ENCOUNTER 2020-03-10 08:15 | Emergency (ER) | payer SELFPAY ==
[~2020-03-10] VITALS: Ht 160 cm; Wt 50.0 kg
[2020-03-10] MEDS ORDERED: MIDAZOLAM HCL/PF 5 MG/5 ML VIAL. ONE (08:22)
[2020-03-10] MEDS ORDERED: MIDAZOLAM HCL/PF 5 MG/5 ML VIAL. IM ONE (08:25)
[2020-03-10] MEDS ORDERED: PROPOFOL 100 ML IV PRN (08:45)
[2020-03-10] MEDS ORDERED: MORPHINE SULFATE 2 MG/ML VIAL. IV PRN (08:45)
[2020-03-10] MEDS ORDERED: MORPHINE SULFATE 4 MG/ML VIAL. IV PRN (08:45)
[2020-03-10] MEDS ORDERED: fentaNYL PF VIAL 100 MCG/2 ML VIAL IV PRN ×2 (08:45)
[2020-03-10] MEDS ORDERED: PROPOFOL 10 MG/ML (50ML) VIAL. IV ONE (09:00)
[2020-03-10] MEDS ORDERED: CHLORHEXIDINE 0.12% 15 ML MOUTHWASH. MM SCH (09:00)
--- NOTE | 2020-03-10 09:03 | PHYS DOC ---
Past Medical History Past Medical History: Bipolar, Hepatitis, Other Additional Past Medical Histor: syphilis, drug abuse,HEPATITIS C Past Surgical History: Other Additional Past Surgical Histo: right thigh Smoking Status: Current Every Day Smoker Alcohol Use: Occasionally Drug Use: Marijuana, Phencyclidine General Adult EDM: Chief Complaint: SEIZURE HPI: HPI: History obtained from EMS. Patient is a 39-year-old female with a history of seizure disorder presents with chief complaint of multiple seizures prior to arrival. EMS states the boyfriend called with a complaint of 3, 30-second seizures that occurred approximately 1 hour prior to arrival. EMS states the patient was alert and oriented x2 with a GCS of 14 in route. They state they do not think family will present to the emergency department. Unclear what medications of any she takes at home for her seizures. EMS denies any signs of trauma. Upon my initial examination patient is agitated and combative but does not appear postictal. She states that she "just wants to sleep." Refuses to answer questions. She does not appear lethargic or altered on my initial assessment. Review of Systems: Review of Systems: Constitutional: Denies fever or chills. [] Eyes: Denies change in visual acuity. [] HENT: Denies nasal congestion or sore throat. [] Respiratory: Denies cough or shortness of breath. [] Cardiovascular: Denies chest pain or edema. [] GI: Denies abdominal pain, nausea, vomiting, bloody stools or diarrhea. [] : Denies dysuria. [] Musculoskeletal: Denies back pain or joint pain. [] Integument: Denies rash. [] Neurologic: Denies headache, focal weakness or sensory changes. [] Endocrine: Denies polyuria or polydipsia. [] Lymphatic: Denies swollen glands. [] Psychiatric: Denies depression or anxiety. [] Heart Score: Risk Factors: Risk Factors: DM, Current or recent (<one month) smoker, HTN, HLP, family history of CAD, obesity. Risk Scores: Score 0 - 3: 2.5% MACE over next 6 weeks - Discharge Home Score 4 - 6: 20.3% MACE over next 6 weeks - Admit for Clinical Observation Score 7 - 10: 72.7% MACE over next 6 weeks - Early Invasive Strategies Current Medications: Current Medications Medications (Trade) Dose Ordered Sig/Rupinder Start Time Stop Time Status Last Admin Dose Admin Chlorhexidine Gluconate (Peridex) 15 ml BID 03/10/20 09:00 UNV Fentanyl Citrate (Fentanyl 2ml Vial) 50 mcg PRN Q1HR PRN 03/10/20 08:45 UNV Levetiracetam 3000 mg/Dextrose 130 ml @ 440 mls/hr 1X ONCE 03/10/20 08:45 03/10/20 09:02 UNV Lorazepam (Ativan Inj) 2 mg STK-MED ONCE 03/10/20 08:33 03/10/20 08:34 DC Midazolam HCl (Versed) 5 mg STK-MED ONCE 03/10/20 08:22 03/10/20 08:22 DC Morphine Sulfate (Morphine Sulfate) 4 mg PRN Q1HR PRN 03/10/20 08:45 UNV Propofol 100 ml @ 0 mls/hr CONT PRN 03/10/20 08:45 Allergies: Allergies: Allergies Coded Allergies Type Severity Reaction Last Updated Verified No Known Drug Allergies 06/09/13 No Physical Exam: PE: Constitutional: Malnourished, cachectic, no acute distress, non-toxic appearance. [] HENT: Normocephalic, atraumatic, bilateral external ears normal, oropharynx moist, no oral exudates, nose normal. [] Eyes: PERRLA, 2 mm and slowly reactive bilaterally, EOMI, conjunctiva normal, no discharge. [] Neck: Normal range of motion, no tenderness, supple, no stridor. [] Cardiovascular:Heart rate regular rhythm, no murmur [] Lungs & Thorax: Rhonchorous bilaterally to auscultation [] Abdomen: soft, no tenderness, no masses, no pulsatile masses. [] Skin: Warm, dry, no erythema, no rash. [] Back: No tenderness, no CVA tenderness. [] Extremities: No tenderness, no cyanosis, no clubbing, ROM intact, no edema. [] Neurologic: Alert and oriented X 2, normal motor function, normal sensory function, no focal deficits noted. Moves all 4 extremity spontaneously. Speaking in clear sentences with no dysarthria or aphasia present. Does not appear lethargic or postictal [] Psychologic: Agitated. Verbally and intermittently physically combative Current Patient Data: Labs: Laboratory Tests Test 10/11/20 08:32 Glucose (Fingerstick) 132 mg/dL (70-99) H EKG: EKG: [] EKG consistent with sinus tachycardia. Ventricular rate of 147 bpm. Slight right axis noted. Intervals unremarkable. No acute ischemic changes appreciated. Radiology/Procedures: Radiology/Procedures: Endotracheal Intubation Procedure Note [place] Protocol: 1. Pre-procedure verification: - Correct patient, correct site, correct procedure (correct patient verified against two identifiers: name and date of ) - H&P or H&P update complete and in medical record - Review of: Radiology images, scans, labs, pathology, biopsy reports with appropriate identifiers (if applicable) - Any required blood products, implants, devices, and/or special equipment for the procedure (if applicable) 2. Site Markings - when appropriate: N/A 3. Time Out: Time out performed (Includes validating the following: Correct patient, correct side/site marked and procedure to performed, correct position) Procedure Details: Procedure: Endotracheal intubation Indication: Acute Respiratory Failure secondary to status epilepticus Consent: Emergency consent Procedure: The patient was placed in the supine position and pre-oxygenated with 100% oxygen via NRB. Sedation was given with Ativan and Versed which were administered for seizure. Using a glide scope for, the cords were visualized; an 7.5 cuffed tube was able to be passed through the cords with direct visualization. Condensation was seen in the tube; bilateral breath-sounds were present, with none auscultated over the abdomen; good color change was present on EtCO2 detector. A CXR is ordered to cofirm placement. The ETT was secured at 22 cm at the lips. Mechanical ventilation is initiated at A/C, Vt 400ml, 100% FiO2, rate 15, PEEP 5. The patient tolerated procedure without immediate complication. Yusef Ballard DO [] Course & Med Decision Making: Course & Med Decision Making Pertinent Labs and Imaging studies reviewed. (See chart for details) []0900: Patient is a 39-year-old female who arrives via EMS for multiple seizures 1 hour prior to arrival. EMS does note a history of seizure disorder in the patient. They are unclear whether she is taking her medications or what medicine she is supposed to be on. Upon arrival to the emergency department the patient was alert and oriented x2. She was easily arousable to painful stimulus. She was speaking in full sentences. She stated over and over "I just want to sleep." No signs of lethargy or postictal state. However, she did appear verbally and somewhat physically combative when examination or questioning was attempted. While examining the patient she did have seizure- like activity. She did become unresponsive with low amplitude tonic-clonic activity of all 4 extremities. Patient was immediately placed on a nonrebreather and suction. She was initially given 5 mg of intramuscular Versed given IV access was not obtained at that time. This did not break her seizure. Additional 4 mg of Ativan IV was administered. She continued to show no signs of decreased seizure-like activity. Additional 8 mg of Ativan was given as well. Over. Approximately 5 to 10 minutes the patient did not show any signs that her seizure had abated. Decision was made to emergently intubate for status epilepticus. See procedure note for further details. Patient will be given 3 g of Keppra. She will be sedated with propofol. Broad-spectrum work-up will be obtained. 1030: Head CT nonacute. Sodium within normal limits. Patient was discussed with [facility] given we do not have any ventilators or available ICU beds. Patient has been accepted by Dr. Jacob Candelario at [facility]. Patient did remain hemodynamically stable while in our emergency department. No continued signs of seizure. Majority of lab work did not result prior to patient transfer. Myself and Dr. Candelario felt it was best to not delay transport to [facility]. Kristin Disclaimer: Kristin Disclaimer: This electronic medical record was generated, in whole or in part, using a voice recognition dictation system. Departure Departure Impression: Primary Impression: Status epilepticus Additional Impressions: Polysubstance abuse Respiratory failure Qualified Codes: J96.01 - Acute respiratory failure with hypoxia Disposition: 02 DC/TRF OTHER SHORT TERM HOS Condition: STABLE Referrals: NO PCP (PCP) YUSEF BALLARD DO Mar 10, 2020 09:03
[2020-03-10] MEDS ORDERED: ROCURONIUM 100 MG/10 ML VIAL. IV ONE (09:15)
[2020-03-10] MEDS ORDERED: IV NORMAL SALINE 1000ML BAG 1,000 ML IV PRN (09:15)
--- NOTE | 2020-03-10 09:22 | RAD ---
CHEST AP ONLY INDICATION: Reason: AMS. status epi. confirm ET/NG TUBE / Spl. Instructions: / History: . COMPARISON STUDY: None. FINDINGS: Life Support Devices: Endotracheal tube terminates 7.2 cm above the carolyn. Enteric tube courses into the stomach and beyond the inferior [id number]. Lungs: Normal lung volume. No focal airspace disease. Normal pulmonary vasculature. Pleura: No pleural effusion or pneumothorax. Heart and Mediastinum: Normal cardiomediastinal silhouette and great vessels. IMPRESSION: 1. Endotracheal tube terminates 7.2 cm above the carolyn. Enteric tube courses into the stomach and beyond the inferior [id number]. 2. No focal airspace disease. Electronically signed by: Azar Sanchez MD (03/10/2020 9:19 AM) [id number]
[2020-03-10] MEDS ORDERED: LEVETIRACETAM IV ONE (09:30)
[2020-03-10] MEDS ORDERED: DEXTROSE 5% IV ONE (09:30)
[2020-03-10 10:25] LABS: BASO # 0.1 x10^3/uL (0.0-0.2); BASO % 1 % (0-3); EOS % 0 % (0-3); HEMATOCRIT 41.8 % (36.0-47.0); LYMPH # 0.5 x10^3/uL (1.0-4.8); LYMPH % 4 % (24-48); MEAN CORPUSCULAR HEMOGLOBIN 32 pg (25-35); MEAN CORPUSCULAR HGB CONC 34 g/dL (31-37); MEAN CORPUSCULAR VOLUME 95 fL (79-100); MONO # 0.4 x10^3/uL (0.0-1.1); MONO % 3 % (0-9); NEUT # 11.9 x10^3/uL (1.8-7.7); NEUT % 92 % (31-73); PLATELET COUNT 221 x10^3/uL (140-400); RED CELL DISTRIBUTION WIDTH 13.4 % (11.5-14.5); WHITE BLOOD COUNT 12.9 x10^3/uL (4.0-11.0)
[2020-03-10 10:34] LABS: CALCIUM 8.4 mg/dL (8.5-10.1); CREATININE 0.7 mg/dL (0.6-1.0); GFR 113.3; POTASSIUM 4.3 mmol/L (3.5-5.1)
[2020-03-10 10:38] LABS: ACETAMIN < 2 mcg/ml (10-30); ETHANOL < 10 mg/dL (0-10); SALIC 5.6 mg/dL (2.8-20.0)
[2020-03-10 10:41] LABS: ALBUMIN 3.4 g/dL (3.4-5.0); ALBUMIN/GLOBULIN RATIO 1.1 (1.0-1.7); MAGNESIUM 1.8 mg/dL (1.8-2.4); TOTAL BILIRUBIN 0.6 mg/dL (0.2-1.0); TOTAL PROTEIN 6.5 g/dL (6.4-8.2)
[2020-03-10 10:48] VITALS: BP 112/56
--- NOTE | 2020-03-10 10:58 | RAD ---
CT HEAD AND CERVICAL SPINE WO Date: 03/10/2020 10:31 AM Clinical Indication: Reason: Status epilepticus / Spl. Instructions: / History: Comparison: None. Technique: 5 mm axial tomographic images were obtained of the head without contrast. These were viewed on brain and bone windows. CT imaging of the cervical spine was performed without contrast. Coronal and sagittal reformatted images were performed. One or more of the following dose reduction techniques were utilized: Automated exposure control (AEC), Adjustment of mA and/or kV according to patient size, Use of iterative reconstruction technique such as ASiR, CT scan done according to ALARA and image gently/image wisely HEAD FINDINGS: The brain parenchyma is normal in attenuation. No intra- or extra-axial mass or fluid collection. No acute hemorrhage. The ventricles are normal in size, shape, and morphology. The smith-white matter junction is normal. The basilar cisterns are patent. The visualized paranasal sinuses are normal. The visualized portions of the orbits and globes are normal. The mastoid air cells are clear. No aggressive osseous lesion or fracture. CERVICAL SPINE FINDINGS: Motion artifact grades image quality. Patient's neck is rotated. The cervical spine is normally aligned. No acute fracture. No aggressive lytic or blastic osseous lesion. The intervertebral disc heights are maintained. No high-grade spinal canal stenosis or neural foraminal narrowing. The thyroid gland is normal. No cervical lymphadenopathy. The visualized aerodigestive tract is unremarkable. The visualized lung apices are clear. IMPRESSION: 1. No acute intracranial process. 2. No acute osseous abnormality of the cervical spine. Electronically signed by: Azar Sanchez MD (03/10/2020 10:55 AM) [id number]
[2020-03-10 12:06] LABS: % BANDS 4 % (0-9); % LYMPHS 2 % (24-48); % MONOS 1 % (0-10); % SEGS 93 % (35-66)
[2020-03-10 12:07] LABS: PLT ESTIMATE ADEQUATE (ADEQUATE)
[2020-03-10] MEDS ORDERED: ETOMIDATE 20 MG/10 ML VIAL. IV ONE (14:02)
[2020-03-10] MEDS ORDERED: fentaNYL PF VIAL 100 MCG/2 ML VIAL ONE (14:03)
[2020-03-10] MEDS ORDERED: ROCURONIUM 50 MG/5 ML VIAL. ONE (14:05)
--- NOTE | 2020-03-10 14:28 | EKG ---
[facility] [address] [place] [address] Test Date: 2020-03-10 Test Time: 08:52:57 Pat Name: ADELITA HENSLEY Department: Room: Gender: F Rehab Rn: : 1980 Requested By: EBONY MENDES Order Number: [id number] Reading MD: Preston Osorio MD Measurements Intervals [place] Rate: 147 P: -98 [place]: 86 QRS: 87 QRSD: 78 T: 77 QT: 314 QTc: 498 Interpretive Statements SVT Electronically Signed On 03-11-2020 14:10:21 CDT by Preston Osorio MD
== END 2020-03-10 11:02 | disposition short-term general hospital (02) ==
LOC: ER 08:15
DX: J96.01 Acute respiratory failure with hypoxia (principal); G40.901 Epilepsy, unspecified, not intractable, with status epilepticus; F19.10 Other psychoactive substance abuse, uncomplicated; K73.9 Chronic hepatitis, unspecified; F31.9 Bipolar disorder, unspecified; F17.200 Nicotine dependence, unspecified, uncomplicated; F12.90 Cannabis use, unspecified, uncomplicated; Z98.890 Other specified postprocedural states
CPT/HCPCS: 31500; 36415; 70450; 71045; 72125; 80053; 80177; 80329; 81025; 82550; 82962; 83605; 83690; 83735; 83880; 84484; 85007; 85025; 93005; 94002; 96365; 96372; 96375; 99285; G0480; J1953; J2060; J2250; J2704; J3010; J7060